=== PATIENT | female | born 1935 | race Caucasian/White ===

== ENCOUNTER 2022-06-12 12:14 | Inpatient (IN) ==
[2022-06-12 14:24] LABS: Basophils # (Auto) 0.01 K/mcL (0.00-0.30); Basophils % (Auto) 0.1 % (0.0-2.0); Eosinophils # (Auto) 0 K/mcL (0.00-0.70); Eosinophils % (Auto) 0 % (0.0-7.0); Hematocrit 28.5 % (34.1-44.9); Hemoglobin 9.4 g/dL (11.2-15.7); Lymphocytes # (Auto) 0.66 K/mcL (1.50-4.80); Lymphocytes % (Auto) 9.1 % (15.5-49.0); Mean Cell Volume 97.9 fL (80.0-100.0); Mean Platelet Volume 10.6 fL (8.8-12.5); Monocytes # (Auto) 0.13 K/mcL (0.10-0.90); Monocytes % (Auto) 1.8 % (1.0-12.0); Neutrophils % (Auto) 87.2 % (38.0-78.0); Platelet Count 193 K/mcL (140-440); RBC 2.91 M/mcL (3.59-5.38); Red Cell Distribution Width 17.2 % (11.5-14.5); WBC 7.2 K/mcL (4.5-11.0)
--- NOTE | 2022-06-12 14:24 | XRay Report ---
CLINICAL INFORMATION: Dyspnea COMPARISON: None. TECHNIQUE: Portable FINDINGS: The heart is mildly enlarged. Mediastinum is unremarkable. Pulmonary vessels are mildly distended and there is minimal interstitial edema. Minor bibasilar atelectasis noted. Small left pleural effusion present. IMPRESSION: Mild CHF or volume overload Interpreted and Authenticated by: Sumeet Norman 06/12/22
--- NOTE | 2022-06-12 14:26 | Emergency Department Note ---
Weakness HPI General Chief complaint: Weakness Stated complaint: weakness x 1 month, worse today Time Seen by Provider: 06/12/22 12:17 Source: EMS Mode of arrival: wheelchair Limitations: no limitations and altered mental status History of Present Illness HPI Narrative: Narrative: 87-year-old female with a history of increasing lower extremity swelling, breast cancer, diabetes, diabetic neuropathy, hypertension, history of falls and worsening generalized weakness presents the ER to be evaluated for lower extre mity swelling and exertional dyspnea. This has been increasing over the last several weeks. She fell about 2 weeks ago and still has bruising to the left side of her face. She is in remission for breast cancer but still does not have hair. She has bruising left side of her face from a fall about 2 weeks ago. She states she is felt very weak and is very very short of breath as of recent. She has been referred to the lymphedema clinic but does not hold the diagnosis of heart failure. She states she has not had fever, chills, body aches, nausea or vomiting and denies chest pain or chest pressure but she has had orthopnea. Her primary care provider is Dana Boykin. She has been having increasing Lasix without significant improvement. She currently takes 20 mg once a day but I believe she was up to twice a day according to her son. Related Data Home Medications Medication Instructions Recorded Confirmed anastrozole 1 mg tablet 1 mg PO QDAY 05/25/21 06/07/22 calcium carbonate 500 mg calcium 500 mg PO QDAY 05/25/21 06/07/22 (1,250 mg) tablet (Calcium 500) cholecalciferol (vitamin D3) 25 25 mcg PO QDAY 05/29/21 06/07/22 mcg (1,000 unit) capsule Previous Rx's Medication Instructions Recorded oxybutynin chloride 10 mg 10 mg PO QDAY #90 tabs 01/15/22 tablet,extended release 24 hr atenolol 50 mg-chlorthalidone 25 1 tab PO QDAY #90 tabs 01/16/22 mg tablet potassium chloride 10 mEq 10 meq PO QDAY #90 tabs 02/16/22 tablet,extended release apixaban 5 mg tablet (Eliquis) 5 mg PO BID #180 tabs 02/28/22 furosemide 20 mg tablet 20 mg PO QDAY #90 tabs 02/28/22 gabapentin 100 mg capsule 100 mg PO .COMPLEX #540 caps 04/09/22 pioglitazone 45 mg tablet 45 mg PO QDAY #90 tabs 04/09/22 omeprazole 20 mg tablet,delayed 20 mg PO BID #180 tabs 04/16/22 release amiodarone 200 mg tablet 200 mg PO BID #180 tabs 05/07/22 losartan 50 mg tablet 50 mg PO QDAY #90 tabs 05/07/22 metoprolol tartrate 25 mg tablet 25 mg PO BID #180 tabs 05/07/22 sertraline 25 mg tablet 50 mg PO QDAY #180 tabs 05/29/22 Allergies Allergy/AdvReac Type Severity Reaction Status Date / Time No Known Drug Allergies Allergy Verified 06/07/22 15:12 Review of Systems ROS ROS Narrative: Narrative: All systems ED: reviewed and negative except as stated. [facility] Narrative Patient History Narrative: Narrative: Medical/Surgical/Family History All Active Problems (Updated 06/12/22 @ 16:09 by Sly Cardoso MD) Hypokalemia (Acute) History of right breast cancer (Acute) Hyperglycemia due to type 2 diabetes mellitus (Acute) Atrial fibrillation (Acute) CHF exacerbation (Acute) Lymphedema (Acute) Leg edema (Acute) Depression (Acute) Wound of skin (Acute) Balance problem (Acute) Carpal tunnel syndrome on both sides (Acute) Memory changes (Acute) Fracture of tooth (Acute) Fracture of neck of humerus (Acute) Medicare annual wellness visit, subsequent (Acute) H/O malignant neoplasm of breast (Acute) Diabetic neuropathy (Acute) Diabetes (Acute) Hypertension (Acute) Medical History Balance problem Carpal tunnel syndrome on both sides Depression Diabetes Diabetic neuropathy H/O malignant neoplasm of breast 2018 Hypertension Lymphedema Memory changes Wound of skin Surgical History History of back surgery x 2 History of cardioversion (10/10/21) Family History Daughter Breast cancer Other Diabetes Social History Smoking Status: Never smoker Alcohol Intake Frequency: does not drink Substance Use: does not use Exam Narrative Narrative: Narrative: Gen: No acute distress Eyes: PERRL, no conjunctival injection , and symmetrical lids. Sclerae non icteric HENMT: Normocephalic Atraumatic head, external nose and ears. Moist MM. 2 L/min via nasal cannula CVS: +S1/S2, No murmurs or gallops. Radial pulses 2+ and equal bilat. No swelling RESP: Unlabored respiratory effort . Rales heard bilaterally at the bases GI: Nontender/Nondistended (NTND), No focal tenderness MSK: Patient has leg wraps in place for 2+ pitting edema all the way up to the knees. Skin: Warm, Dry . No rashes or lesions . Cap refill less than 2. Neuro: No focal neurological deficit Psych: Awake, Alert, & Oriented (AAO) x3. Appropriate mood and affect . General Limitations: no limitations and altered mental status Course Vital Signs Vital signs: Vital Signs Temperature 98.1 F 06/12/22 12:26 Pulse Rate 60 06/12/22 12:26 Respiratory Rate 14 06/12/22 12:26 Blood Pressure 135/38 06/12/22 12:26 Pulse Oximetry (%) 88 L 06/12/22 12:26 Oxygen Delivery Method 06/12/22 12:26 Temperature 98.1 F 06/12/22 12:26 Pulse Rate 56 L 06/12/22 16:09 Respiratory Rate 11 L 06/12/22 16:09 Blood Pressure 150/51 06/12/22 16:00 Pulse Oximetry (%) 100 06/12/22 16:09 Oxygen Delivery Method 06/12/22 16:09 Oxygen Flow Rate (L/min) 2 06/12/22 16:09 [facility] Narrative Medical decision making narrative: Narrative: Patient has 2+ pitting edema, exertional dyspnea, orthopnea and had an oxygen saturation of 88% on room air when she was triage. She desats with any ambulation. She does fine on 2 L/min or sitting without movement. She will be evaluated with CBC, CMP, troponin, EKG, chest x-ray and BNP. CBC: Anemia with slight decrease since April, no need for blood transfusion otherwise unremarkable CMP: Hyperglycemia 340, hyponatremia at 126 but adjusted for glucose is likely normal. Slight hypokalemia. Patient given 40 p.o. and 20 peripherally Troponin: Normal BNP:1602 elevated EKG: Sinus bradycardia at a rate of 54 bpm with left bundle branch block, no evidence of acute ischemia at this time. Chest x-ray:IMPRESSION: Mild CHF or volume overload Patient had an echocardiogram performed by Dr. Espinosa in September which was rather unremarkable with a ejection fraction of 60%. Given the patient's hypoxia with exertion, lower extremity swelling, rales at the bases, increased BNP and chest x-ray findings I feel like she would benefit from inpatient evaluation and therapy. Hospitalist to be consulted. Dr Cardoso: Graciously agreed to come down evaluate the patient he also requested a COVID test. COVID: Lab Data Result diagrams: 06/12/22 13:48 06/12/22 13:48 Labs: Lab Results 06/12/22 06/12/22 06/12/22 Range/Units 13:47 13:48 13:48 WBC 7.2 (4.5-11.0) K/mcL RBC 2.91 L (3.59-5.38) M/mcL Hgb 9.4 L (11.2-15.7) g/dL Hct 28.5 L (34.1-44.9) % MCV 97.9 (80.0-100.0) fL MCH 32.3 (26.0-34.0) pg MCHC 33.0 (31.0-36.0) g/dL RDW 17.2 H (11.5-14.5) % Plt Count 193 (140-440) K/mcL MPV 10.6 (8.8-12.5) fL Immature Gran % (Auto) 1.8 H (0.0-0.5) % Neut % (Auto) 87.2 H (38.0-78.0) % Lymph % (Auto) 9.1 L (15.5-49.0) % [place] % (Auto) 1.8 (1.0-12.0) % Eos % (Auto) 0 (0.0-7.0) % Baso % (Auto) 0.1 (0.0-2.0) % Lymph # (Auto) 0.66 L (1.50-4.80) K/mcL [place] # (Auto) 0.13 (0.10-0.90) K/mcL Eos # (Auto) 0 (0.00-0.70) K/mcL Baso # (Auto) 0.01 (0.00-0.30) K/mcL Immature Gran # 0.13 H (0.00-0.05) K/mcl Absolute Neutrophils 6.31 (1.80-8.00) K/mcL Sodium 126 L (133-145) mmol/L Potassium 3.1 L (3.3-5.1) mmol/L Chloride 88 L (96-108) mmol/L Carbon Dioxide 33 H (22-30) mmol/L Anion Gap 5.0 L (8.0-16.0) BUN 16 (8-23) mg/dL Creatinine 0.8 (0.6-1.1) mg/dL GFR Calculation 67 Glucose 340 H (70-105) mg/dL Calcium 8.3 L (8.6-10.4) mg/dL Total Bilirubin 0.5 (0.1-1.0) mg/dL AST 14 (<32) U/L ALT 30 (<40) U/L Alkaline Phosphatase 85 (39-117) U/L NT-Pro-B Natriuret Pep 1602.0 H (<450.0) pg/mL Total Protein 5.5 L (5.9-8.4) gm/dL Albumin 3.2 (3.2-5.2) gm/dL Globulin 2.3 (2.2-3.7) gm/dL Albumin/Globulin Ratio 1.4 (1.0-2.3) Urine Color Urine Appearance (Clear) Urine pH (5.0-9.0) Ur Specific [place] (1.000-1.035) Urine Protein (Negative) mg/dL Urine Glucose (UA) (Negative) mg/dL Urine Ketones (Negative) mg/dL Urine Occult Blood (Negative) mg/dL Urine Nitrate (Negative) Urine Bilirubin (Negative) mg/dL Urine Urobilinogen mg/dL Ur Leukocyte Esterase (Negative) /uL Urine RBC (0-3) /hpf Urine WBC (0-4) /hpf Ur Squamous Epith Cells (0-4) /hpf Urine Bacteria (0) /hpf Urine Mucus (None) /hpf Ur Culture Indicated? POC Troponin I 0.02 (0.02-0.08) 06/12/22 Range/Units 15:15 WBC (4.5-11.0) K/mcL RBC (3.59-5.38) M/mcL Hgb (11.2-15.7) g/dL Hct (34.1-44.9) % MCV (80.0-100.0) fL MCH (26.0-34.0) pg MCHC (31.0-36.0) g/dL RDW (11.5-14.5) % Plt Count (140-440) K/mcL MPV (8.8-12.5) fL Immature Gran % (Auto) (0.0-0.5) % Neut % (Auto) (38.0-78.0) % Lymph % (Auto) (15.5-49.0) % [place] % (Auto) (1.0-12.0) % Eos % (Auto) (0.0-7.0) % Baso % (Auto) (0.0-2.0) % Lymph # (Auto) (1.50-4.80) K/mcL [place] # (Auto) (0.10-0.90) K/mcL Eos # (Auto) (0.00-0.70) K/mcL Baso # (Auto) (0.00-0.30) K/mcL Immature Gran # (0.00-0.05) K/mcl Absolute Neutrophils (1.80-8.00) K/mcL Sodium (133-145) mmol/L Potassium (3.3-5.1) mmol/L Chloride (96-108) mmol/L Carbon Dioxide (22-30) mmol/L Anion Gap (8.0-16.0) BUN (8-23) mg/dL Creatinine (0.6-1.1) mg/dL GFR Calculation Glucose (70-105) mg/dL Calcium (8.6-10.4) mg/dL Total Bilirubin (0.1-1.0) mg/dL AST (<32) U/L ALT (<40) U/L Alkaline Phosphatase (39-117) U/L NT-Pro-B Natriuret Pep (<450.0) pg/mL Total Protein (5.9-8.4) gm/dL Albumin (3.2-5.2) gm/dL Globulin (2.2-3.7) gm/dL Albumin/Globulin Ratio (1.0-2.3) Urine Color Yellow Urine Appearance Hazy A (Clear) Urine pH 6.0 (5.0-9.0) Ur Specific [place] 1.007 (1.000-1.035) Urine Protein Negative (Negative) mg/dL Urine Glucose (UA) >=500 A (Negative) mg/dL Urine Ketones Negative (Negative) mg/dL Urine Occult Blood 0.03 (Negative) mg/dL Urine Nitrate Negative (Negative) Urine Bilirubin Negative (Negative) mg/dL Urine Urobilinogen Negative mg/dL Ur Leukocyte Esterase 500 A (Negative) /uL Urine RBC 3 (0-3) /hpf Urine WBC 29 H (0-4) /hpf Ur Squamous Epith Cells 0 (0-4) /hpf Urine Bacteria None (0) /hpf Urine Mucus Few A (None) /hpf Ur Culture Indicated? yes POC Troponin I (0.02-0.08) ED POC Tests ED POC Tests: RAMYA - SARS Antigen Negative Discharge Plan Patient/Caregiver Discharge Instructions Pt seen by ALTERATION WORKER/PA only: Yes Clinical Impression: CHF exacerbation Patient Disposition: Xfer As Inpt ([facility]) Condition: Fair Discharge Date/Time: 06/12/22 16:34
[2022-06-12] MEDS ORDERED: FUROSEMIDE 40 MG/4 ML VIAL IV ONE (15:02)
[2022-06-12 15:16] LABS: ALT/SGPT 30 U/L (<40); AST/SGOT 14 U/L (<32); Albumin 3.2 gm/dL (3.2-5.2); Albumin/Globulin Ratio 1.4 (1.0-2.3); Alkaline Phosphatase 85 U/L (39-117); Bilirubin,Total 0.5 mg/dL (0.1-1.0); Blood Urea Nitrogen 16 mg/dL (8-23); Calcium 8.3 mg/dL (8.6-10.4); Carbon Dioxide 33 mmol/L (22-30); Chloride 88 mmol/L (96-108); Globulin 2.3 gm/dL (2.2-3.7); Glomerular Filtration Rate 67; Glucose 340 mg/dL (70-105)
[2022-06-12] MEDS ORDERED: POTASSIUM CHLORIDE 20 MEQ PACKET PO ONE (15:20)
[2022-06-12] MEDS ORDERED: POTASSIUM CHLORIDE 20 MEQ in DEXTROSE 5% IN WATER 250 ML IV ONE (15:20)
--- NOTE | 2022-06-12 16:11 | Internal Med History&Physical ---
HPI History of Present Illness Patient information: Note initiated : 06/12/22 at 4:01 pm Service Date, if different from initiated Date: [] Patient: Isi Forman a 87 y/o F admitted on for weakness x 1 month, worse today. Chief Complaint: [legs swelling] Chief complaint: legs swelling History of present illness: Ms. Forman is a 87 year old F history of right breast cancer status post surgery now on hormonal therapy, type 2 diabetes mellitus, atrial fibrillation's on Eliquis, presenting with 3-month history of progressively worsening exertional dyspnea, shortness of breath, bilateral leg swellings. Over the past 3 months, she is experiencing worsening exertional dyspnea, shortness of breath, and bilateral leg swellings. She cannot walk more than 2 steps with the help of walker's. She is coming of shortness of breath. She denies any cough, sputum productions, or wheezing. She denies any chest pain or palpitations. She denies any fever chills or diaphoresis. She is complaining of bilateral leg swellings, but denies any unintentional weight gain. She denies any orthopnea and she sleeps on 1 pillows. She had a echocardiogram done earlier the year and according to records it was within normal limits. Vital signs at ED presentation significant for oxygen saturating at 88% on room air, as well as bradycardia heart rate in the 50s. Labs significant for lack of leukocytosis with WBC 7.2. BNP 1600. Serum troponin with normal limits. COVID smooth screening pending. Serum sodium level 136, blood glucose 340, corrected serum sodium 132. Serum potassium 3.1. Chest x-ray showing pulmonary edema. No f ocal infiltrates noted. Constitutional Constitutional: Present weakness; Absent chills, excessive sweating, fatigue or fever(s) EENT Eyes: Absent blurry vision, change in vision, loss of vision or other visual disturbances Ears: Absent decreased hearing or tinnitus Nose, mouth and throat: Absent abnormal hearing, dry mouth, headache(s), nasal congestion or sore throat Cardiovascular Cardiovascular: Present dyspnea on exertion, edema and leg edema; Absent chest pain, chest pain at rest, irregular heart rhythm or palpatations Respiratory Respiratory: Present dyspnea and dyspnea on exertion; Absent cough or wheezing Gastrointestinal Gastrointestinal: Absent abdominal pain, constipation, diarrhea, nausea or vomiting Musculoskeletal Musculoskeletal: Absent back pain, deformity, limited range of motion, muscle cramps, muscle weakness or numbness Integumentary Integumentary: Absent lesions, rash or wounds Neurological Neurological: Absent focal weakness, headache(s) or numbness Psychiatric Psychiatric: Absent anxiety, depression or hallucinations PFSH PFSH All Active Problems (Updated 06/12/22 @ 16:09 by Sly Cardoso MD) Hypokalemia (Acute) History of right breast cancer (Acute) Hyperglycemia due to type 2 diabetes mellitus (Acute) Atrial fibrillation (Acute) CHF exacerbation (Acute) Lymphedema (Acute) Leg edema (Acute) Depression (Acute) Wound of skin (Acute) Balance problem (Acute) Carpal tunnel syndrome on both sides (Acute) Memory changes (Acute) Fracture of tooth (Acute) Fracture of neck of humerus (Acute) Medicare annual wellness visit, subsequent (Acute) H/O malignant neoplasm of breast (Acute) Diabetic neuropathy (Acute) Diabetes (Acute) Hypertension (Acute) Medical History Balance problem Carpal tunnel syndrome on both sides Depression Diabetes Diabetic neuropathy H/O malignant neoplasm of breast 2018 Hypertension Lymphedema Memory changes Wound of skin Surgical History History of back surgery x 2 History of cardioversion (10/10/21) Family History Daughter Breast cancer Other Diabetes Social History marital status: smoking status: Never smoker alcohol intake frequency: does not drink substance use type: does not use MEDS/ALLERGIES Home Medications and Allergies Home Medications Medication Instructions Recorded Confirmed Type anastrozole 1 mg tablet 1 mg PO QDAY 05/25/21 06/07/22 History calcium carbonate 500 mg calcium 500 mg PO QDAY 05/25/21 06/07/22 History (1,250 mg) tablet (Calcium 500) cholecalciferol (vitamin D3) 25 25 mcg PO QDAY 05/29/21 06/07/22 History mcg (1,000 unit) capsule oxybutynin chloride 10 mg 10 mg PO QDAY #90 tabs 01/15/22 06/07/22 Rx tablet,extended release 24 hr atenolol 50 mg-chlorthalidone 25 1 tab PO QDAY #90 tabs 01/16/22 06/07/22 Rx mg tablet potassium chloride 10 mEq 10 meq PO QDAY #90 tabs 02/16/22 06/07/22 Rx tablet,extended release apixaban 5 mg tablet (Eliquis) 5 mg PO BID #180 tabs 02/28/22 06/07/22 Rx furosemide 20 mg tablet 20 mg PO QDAY #90 tabs 02/28/22 06/07/22 Rx gabapentin 100 mg capsule 100 mg PO .COMPLEX #540 caps 04/09/22 06/07/22 Rx pioglitazone 45 mg tablet 45 mg PO QDAY #90 tabs 04/09/22 06/07/22 Rx omeprazole 20 mg tablet,delayed 20 mg PO BID #180 tabs 04/16/22 06/07/22 Rx release amiodarone 200 mg tablet 200 mg PO BID #180 tabs 05/07/22 06/07/22 Rx losartan 50 mg tablet 50 mg PO QDAY #90 tabs 05/07/22 06/07/22 Rx metoprolol tartrate 25 mg tablet 25 mg PO BID #180 tabs 05/07/22 06/07/22 Rx sertraline 25 mg tablet 50 mg PO QDAY #180 tabs 05/29/22 06/07/22 Rx Allergies Allergy/AdvReac Type Severity Reaction Status Date / Time No Known Drug Allergies Allergy Verified 06/07/22 15:12 EXAM Constitutional Vitals: Temp Pulse Resp BP Pulse Ox O2 Del Method O2 Flow Rate 36.7 C 56 L 14 164/41 100 2 06/12/22 12:26 06/12/22 15:24 06/12/22 12:26 06/12/22 15:24 06/12/22 15:24 06/12/22 13:07 06/12/22 13:07 General appearance: cooperative and no acute distress Head Head exam: Present atraumatic and normocephalic Eye Eye exam: Present EOMI and PERRL ENT ENT exam: Present mucous membranes moist, normal exam and normal external ear exam Additional comments: Nasal cannula in place Neck Neck exam: Present normal inspection; Absent lymphadenopathy, tenderness or thyromegaly Respiratory Respiratory exam: Present rhonchi; Absent accessory muscle use, respiratory distress or wheezes Cardiovascular Cardiovascular exam: Present bradycardia; Absent JVD GI/Abdominal GI/Abdominal exam: Present normal bowel sounds and soft; Absent organomegaly or tenderness Extremities Exam Extremities exam: Present full ROM, normal capillary refill, normal inspection and pedal edema; Absent tenderness Additional comments: 3+ pitting edema up to hips Neurological Exam Neurological exam: Present alert, CN II-XII intact and oriented X3; Absent motor sensory deficit Psychiatric Psychiatric exam: Present normal affect and normal mood; Absent anxious or depressed Skin Skin exam: Present dry and intact DATA Data Completed and Pending Labs: Labs from last 24 hours 06/12/22 06/12/22 06/12/22 15:15 13:48 13:48 WBC 7.2 RBC 2.91 L Hgb 9.4 L Hct 28.5 L MCV 97.9 MCH 32.3 MCHC 33.0 RDW 17.2 H Plt Count 193 MPV 10.6 Immature Gran % (Auto) 1.8 H Neut % (Auto) 87.2 H Lymph % (Auto) 9.1 L [place] % (Auto) 1.8 Eos % (Auto) 0 Baso % (Auto) 0.1 Lymph # (Auto) 0.66 L [place] # (Auto) 0.13 Eos # (Auto) 0 Baso # (Auto) 0.01 Immature Gran # 0.13 H Absolute Neutrophils 6.31 Sodium 126 L Potassium 3.1 L Chloride 88 L Carbon Dioxide 33 H Anion Gap 5.0 L BUN 16 Creatinine 0.8 GFR Calculation 67 Glucose 340 H Calcium 8.3 L Total Bilirubin 0.5 AST 14 ALT 30 Alkaline Phosphatase 85 NT-Pro-B Natriuret Pep 1602.0 H Total Protein 5.5 L Albumin 3.2 Globulin 2.3 Albumin/Globulin Ratio 1.4 Urine Color Pending Urine Appearance Pending Urine pH Pending Ur Specific [place] Pending Urine Protein Pending Urine Glucose (UA) Pending Urine Ketones Pending Urine Occult Blood Pending Urine Nitrate Pending Urine Bilirubin Pending Urine Urobilinogen Pending Ur Leukocyte Esterase Pending POC Troponin I 06/12/22 13:47 WBC RBC Hgb Hct MCV MCH MCHC RDW Plt Count MPV Immature Gran % (Auto) Neut % (Auto) Lymph % (Auto) [place] % (Auto) Eos % (Auto) Baso % (Auto) Lymph # (Auto) [place] # (Auto) Eos # (Auto) Baso # (Auto) Immature Gran # Absolute Neutrophils Sodium Potassium Chloride Carbon Dioxide Anion Gap BUN Creatinine GFR Calculation Glucose Calcium Total Bilirubin AST ALT Alkaline Phosphatase NT-Pro-B Natriuret Pep Total Protein Albumin Globulin Albumin/Globulin Ratio Urine Color Urine Appearance Urine pH Ur Specific [place] Urine Protein Urine Glucose (UA) Urine Ketones Urine Occult Blood Urine Nitrate Urine Bilirubin Urine Urobilinogen Ur Leukocyte Esterase POC Troponin I 0.02 A/P Assessment and plan (1) CHF exacerbation: Status: Acute (2) Atrial fibrillation: Status: Acute (3) Hyperglycemia due to type 2 diabetes mellitus: Status: Acute (4) History of right breast cancer: Status: Acute (5) Hypokalemia: Status: Acute Narrative A/P Narrative: Assessment and Plans: 1. CHF with exacerbation: Inpatient med surg telemetry Supplemental oxygen therapy Strict intake and output Daily weigh 2L/day fluid restriction 2D echocardiogram Lasix 40mg IV BID Losartan Metoprolol tartrate 2. Atrial fibrillation: Amiodarone Metoprolol tartrate Lopressor 5mg IV q5min X3 doses PRN HR>120bpm, hold if SBP<90 and/or DBP<50mmHg Eliquis 2D echocardiogram 3. Hyperglycemia with T2DM: HgA1c Hold oral hypoglycemics Lantus 10 unit HS High dose SSI AC HS Accu Chek AC HS Hypoglycemia protocol Diabetic diet 4. Hypokalemia: Potassium chloride 20mEq PO BID CMP daily to trend serum potassium level Also check serum Mg level and replace if needed 5. h/o right breast cancer: Continue hormone therapy GI ppx: not currently indicated DVT ppx: Eliquis Code status: DNR Prognosis: guarded Disposition: inpatient med surg telemetry; PT OT Time Spent With Patient Time: Total time spent is greater than 50% in coordination of care (as documented) at patient's floor/unit and/or counseling patient: Total time spent with greater than 50% in coordination of care (as documented) at patient's floor/unit and/or counseling patient:: 50 - 70 minutes
[2022-06-12 16:16] LABS: Appearance,Urine HAZY (Clear); Bilirubin,Urine Negative (Negative); Color,Urine YELLOW; Culture Indicated,Urine yes; Glucose,Urine (UA) >=500 mg/dL (Negative); Ketones,Urine Negative (Negative); Leukocyte Esterase,Urine 500 /uL (Negative); Mucus,Urine FEW /hpf; Nitrate,Urine Negative (Negative); Protein,Urine Negative (Negative); Specific Gravity,Urine 1.007 (1.000-1.035); Urine Blood 0.03 mg/dL (Negative); Urine RBC 3 /hpf (0-3); Urine Squamous Epithelial Cell 0 /hpf (0-4); Urine WBC 29 /hpf (0-4); Urobilinogen,Urine Negative
[2022-06-12] MEDS ORDERED: traZODone HCL 50 MG TABLET PO PRN (16:50)
[2022-06-12] MEDS ORDERED: METOPROLOL TARTRATE 5 MG/5 ML VIAL IV PRN (16:50)
[2022-06-12] MEDS ORDERED: DEXTROSE 31 GM ORAL.SUSP PO PRN (16:50)
[2022-06-12] MEDS ORDERED: GABAPENTIN 100 MG CAPSULE PO SCH (16:50)
[2022-06-12] MEDS ORDERED: DEXTROSE 50% 50 ML VIAL IV PRN (16:50)
[2022-06-12] MEDS ORDERED: IPRATROPIUM/ALBUTEROL 3 ML AMPUL.NEB NEB PRN (16:50)
[2022-06-12] MEDS ORDERED: ACETAMINOPHEN 325 MG TABLET PO PRN (16:50)
[2022-06-12] MEDS ORDERED: ONDANSETRON 4 MG/2 ML VIAL IV PRN (16:50)
[2022-06-12] MEDS: INSULIN LISPRO 1 UNIT/0.01 ML UNIT SQ SCH ×2 (17:53→20:27)
[2022-06-12 18:32] LABS: Hemoglobin A1C 9.5 % Hgb (4.0-6.0)
[2022-06-12] MEDS: FUROSEMIDE 40 MG/4 ML VIAL IV SCH (20:16)
[2022-06-12] MEDS: CALCIUM CARBONATE 500 MG TAB.CHEW CHEWED SCH (20:16)
[2022-06-12] MEDS: DOCUSATE SODIUM 100 MG CAPSULE PO SCH (20:16)
[2022-06-12] MEDS: OMEPRAZOLE 20 MG CAPSULE PO SCH (20:17)
[2022-06-12] MEDS: GABAPENTIN 400 MG CAPSULE PO SCH (20:17)
[2022-06-12] MEDS: METOPROLOL TARTRATE 25 MG TABLET PO SCH (20:17)
[2022-06-12] MEDS: SENNOSIDES 1 TABLET PO SCH (20:17)
[2022-06-12] MEDS: POTASSIUM CHLORIDE 10 MEQ TABLET PO SCH (20:17)
[2022-06-12] MEDS: AMIODARONE HCL 200 MG TABLET PO SCH (20:17)
[2022-06-12] MEDS: APIXABAN 5 MG TABLET PO SCH (20:18)
[2022-06-12] MEDS: 0.9 % SODIUM CHLORIDE 10 ML SYRINGE IV SCH (20:18)
[2022-06-12] MEDS: INSULIN GLARGINE, HUMAN 1 UNIT/0.01 ML SQ SCH (20:27)
[2022-06-13] MEDS: 0.9 % SODIUM CHLORIDE 10 ML SYRINGE IV SCH ×3 (05:00→20:29)
[2022-06-13 06:48] LABS: Basophils # (Auto) 0.01 K/mcL (0.00-0.30); Basophils % (Auto) 0.1 % (0.0-2.0); Eosinophils # (Auto) 0.02 K/mcL (0.00-0.70); Eosinophils % (Auto) 0.3 % (0.0-7.0); Hematocrit 26.6 % (34.1-44.9); Hemoglobin 8.7 g/dL (11.2-15.7); Lymphocytes # (Auto) 0.89 K/mcL (1.50-4.80); Lymphocytes % (Auto) 12.8 % (15.5-49.0); Mean Cell Volume 99.3 fL (80.0-100.0); Mean Corpuscular HGB Conc 32.7 g/dL (31.0-36.0); Mean Platelet Volume 10.8 fL (8.8-12.5); Monocytes # (Auto) 0.31 K/mcL (0.10-0.90); Monocytes % (Auto) 4.5 % (1.0-12.0); Platelet Count 191 K/mcL (140-440); RBC 2.68 M/mcL (3.59-5.38); Red Cell Distribution Width 17.3 % (11.5-14.5); WBC 6.9 K/mcL (4.5-11.0)
[2022-06-13 07:12] LABS: ALT/SGPT 26 U/L (<40); AST/SGOT 15 U/L (<32); Albumin 2.6 gm/dL (3.2-5.2); Albumin/Globulin Ratio 1.1 (1.0-2.3); Alkaline Phosphatase 70 U/L (39-117); Bilirubin,Total 0.4 mg/dL (0.1-1.0); Blood Urea Nitrogen 16 mg/dL (8-23); Calcium 8.1 mg/dL (8.6-10.4); Carbon Dioxide 32 mmol/L (22-30); Chloride 91 mmol/L (96-108); Globulin 2.3 gm/dL (2.2-3.7); Glomerular Filtration Rate 67; Glucose 73 mg/dL (70-105); Phosphorous 2.9 mg/dL (2.5-4.5)
[2022-06-13] MEDS: INSULIN LISPRO 1 UNIT/0.01 ML UNIT SQ SCH ×4 (07:41→20:28)
[2022-06-13] MEDS: OMEPRAZOLE 20 MG CAPSULE PO SCH ×2 (07:42→17:04)
[2022-06-13] MEDS ORDERED: NON FORMULARY MEDICATION 1 DOSE MISCELL (Acetaminophen 500 mg Capsule) PO PRN (08:46)
[2022-06-13] MEDS: OXYBUTYNIN CHLORIDE 5 MG TAB.XL.24H PO SCH (08:57)
[2022-06-13] MEDS: VITAMIN D3 25 MCG TABLET PO SCH (08:57)
[2022-06-13] MEDS: FUROSEMIDE 40 MG/4 ML VIAL IV SCH ×2 (08:57→15:55)
[2022-06-13] MEDS: POTASSIUM CHLORIDE 10 MEQ TABLET PO SCH ×2 (08:58→17:05)
[2022-06-13] MEDS: CALCIUM CARBONATE 500 MG TAB.CHEW CHEWED SCH ×2 (08:58→20:26)
[2022-06-13] MEDS: GABAPENTIN 100 MG CAPSULE PO SCH (08:59)
[2022-06-13] MEDS: SERTRALINE 50 MG TABLET PO SCH ×3 (09:00→20:27)
[2022-06-13] MEDS: AMIODARONE HCL 200 MG TABLET PO SCH ×2 (09:00→20:27)
[2022-06-13] MEDS: CALCIUM (OYSTER SHELL) 500 MG TABLET PO SCH (09:00)
[2022-06-13] MEDS: DOCUSATE SODIUM 100 MG CAPSULE PO SCH ×2 (09:00→20:27)
[2022-06-13] MEDS: APIXABAN 5 MG TABLET PO SCH ×2 (09:00→20:27)
[2022-06-13] MEDS: LOSARTAN 50 MG TABLET PO SCH (09:01)
[2022-06-13] MEDS: METOPROLOL TARTRATE 25 MG TABLET PO SCH ×2 (09:01→20:27)
[2022-06-13] MEDS: predniSONE 20 MG TABLET PO SCH ×2 (09:11→17:04)
--- NOTE | 2022-06-13 13:40 | EKG ---
[facility] Test Date: 2022-06-12 Pat Name: Isi Forman Department: ED Room: Gender: Female Unit Aide Tech: AW : [id number] Requested By: Benito Mirza Order Number: [id number] Reading MD: Chastity Rudd Measurements Intervals [place] Rate: 54 P: -30 NE: 179 QRS: -18 QRSD: 122 T: 48 QT: 513 QTc: 487 Interpretive Statements Sinus rhythm Nonspecific IVCD Consider anterior infarct age indeterminate T wave abnormality anterior leads consider ischemia Electronically Signed On 06-13-2022 13:40:06 PDT by Chastity Rudd /store/M0/[id number]
[2022-06-13] MEDS ORDERED: LIDOCAINE VISCOUS 2% 15 ML UNIT DOSE CUP PO PRN (15:15)
[2022-06-13] MEDS ORDERED: DEXTROSE 50% 50 ML VIAL IV PRN (15:21)
[2022-06-13] MEDS ORDERED: DEXTROSE 31 GM ORAL.SUSP PO PRN (15:21)
--- NOTE | 2022-06-13 15:21 | Internal Med Progress Note ---
SUBJECTIVE Subjective Patient information: Note initiated : 06/13/22 at 3:16 pm Service Date, if different from initiated Date: [] Patient: Isi Forman a 87 y/o F admitted on 06/12/22 for weakness x 1 month, worse today. Chief Complaint: [] Interval history: Ms. Forman is a 87 year old F history of right breast cancer status post surgery now on hormonal therapy, type 2 diabetes mellitus, atrial fibrillation's on Eliquis, presenting with 3-month history of progressively worsening exertional dyspnea, shortness of breath, bilateral leg swellings. Over the past 3 months, she is experiencing worsening exertional dyspnea, shortness of breath, and bi lateral leg swellings. She cannot walk more than 2 steps with the help of walker's. She is coming of shortness of breath. She denies any cough, sputum productions, or wheezing. She denies any chest pain or palpitations. She denies any fever chills or diaphoresis. She is complaining of bilateral leg swellings, but denies any unintentional weight gain. She denies any orthopnea and she sleeps on 1 pillows. She had a echocardiogram done earlier the year and according to records it was within normal limits. Vital signs at ED presentation significant for oxygen saturating at 88% on room air, as well as bradycardia heart rate in the 50s. Labs significant for lack of leukocytosis with WBC 7.2. BNP 1600. Serum troponin with normal limits. COVID smooth screening pending. Serum sodium level 136, blood glucose 340, corrected serum sodium 132. Serum potassium 3.1. Chest x-ray showing pulmonary edema. No focal infiltrates noted. 06/13: Patient is currently on room air. Please refer to the records for exact intake and output documentations. Status post 2D echocardiogram showing conserved systolic ejection fractions of 65 to 70% with grade 2 diastolic dysfunction. Urine culture growing gram-negative bacillus, but patient denies any dysuria. The increased urinary frequency is most likely due to diuretic therapies. Patient's is complaining of painful ulcer on her tongue and on her cheeks. Patient denies any chest pain or palpitations. Improving degree of shortness of breath. Continue IV Lasix. Continue metoprolol tartrate and losartan as part of the management for heart failure. Continue basal bolus insulin regimens. Continue amiodarone, metoprolol, and Eliquis for atrial fibrillation's. Physical therapist recommended SNF placement. Constitutional Vitals: Vital Signs Temp Pulse Resp BP Pulse Ox O2 Del Method O2 Flow Rate 36.4 C 60 16 100/32 94 1 06/13/22 12:00 06/13/22 12:00 06/13/22 12:00 06/13/22 12:00 06/13/22 12:00 06/13/22 12:00 06/13/22 08:21 Period Temp Pulse Resp BP Sys/Rhodes Pulse Ox O2 Del Method O2 Flow Rate Last 24 Hr 36.3 C-36.8 C 51-60 10- 96-164/32-56 93-100 Nasal Cannula- Room Air 1-2 Intake and Output 06/13/22 06/13/22 06/13/22 05:59 13:59 21:59 Intake Total 0 Output Total 601 700 Balance -601 -700 Intake & Output: Intake & Output 06/13/22 06/13/22 06/13/22 05:59 13:59 21:59 Intake Total 0 Output Total 601 700 Balance -601 -700 Intake: Oral 0 Output: Urine Catheter Amount 600 Straight 600 Void Amount 700 # of times incontinent of urine 1 Other: Meal Lunch Percent of Meal Consumed 75% Feeding Ability Independent Urine Appearance Cloudy Straight Clear Urine Color Light Catina Straight Pale Urine Odor Strong Head Head exam: Present atraumatic and normal inspection Eye Eye exam: Present normal appearance ENT ENT exam: Present normal exam and normal external ear exam; Absent mucous membranes moist Additional comments: aphthous ulcers on tongue and maxillary mucous Neck Neck exam: Present normal inspection Respiratory Respiratory exam: Present rhonchi Cardiovascular Cardiovascular exam: Present irregular rhythm GI/Abdominal GI/Abdominal exam: Present normal bowel sounds Extremities Exam Extremities exam: Present pedal edema Back Exam Back exam: Present normal inspection Neurological Exam Neurological exam: Present alert and oriented X3 Skin Skin exam: Present intact and warm OBJ DATA Labs CBC & Chem 7: 06/13/22 05:14 06/13/22 05:13 Labs: Abnormal Lab Results 06/13/22 06/13/22 06/12/22 05:14 05:13 15:15 RBC 2.68 L Hgb 8.7 L Hct 26.6 L RDW 17.3 H Immature Gran % (Auto) 1.3 H Neut % (Auto) 81.0 H Lymph % (Auto) 12.8 L Lymph # (Auto) 0.89 L Immature Gran # 0.09 H Sodium 129 L Potassium Chloride 91 L Carbon Dioxide 32 H Anion Gap 6.0 L Glucose Hemoglobin A1c Calcium 8.1 L NT-Pro-B Natriuret Pep Total Protein 4.9 L Albumin 2.6 L Urine Appearance Hazy A Urine Glucose (UA) >=500 A Ur Leukocyte Esterase 500 A Urine WBC 29 H Urine Mucus Few A 06/12/22 06/12/22 06/12/22 13:48 13:48 13:48 RBC 2.91 L Hgb 9.4 L Hct 28.5 L RDW 17.2 H Immature Gran % (Auto) 1.8 H Neut % (Auto) 87.2 H Lymph % (Auto) 9.1 L Lymph # (Auto) 0.66 L Immature Gran # 0.13 H Sodium 126 L Potassium 3.1 L Chloride 88 L Carbon Dioxide 33 H Anion Gap 5.0 L Glucose 340 H Hemoglobin A1c 9.5 H Calcium 8.3 L NT-Pro-B Natriuret Pep 1602.0 H Total Protein 5.5 L Albumin Urine Appearance Urine Glucose (UA) Ur Leukocyte Esterase Urine WBC Urine Mucus Meds: Medications Acetaminophen (Acetaminophen 325 Mg Tablet) 650 mg PO Q6HP PRN; Protocol PRN Reason: Per Pain Protocol/Fever > 101 Albuterol/Ipratropium (Ipratropium/Albuterol 3 Ml Ampul.Neb) 3 ml NEB Q4HRT PRN PRN Reason: Wheezing Amiodarone HCl (Amiodarone Hcl 200 Mg Tablet) 200 mg PO BID [facility] Last Admin: 06/13/22 09:00 Dose: 200 mg Apixaban (Apixaban 5 Mg Tablet) 5 mg PO BID [facility] Last Admin: 06/13/22 09:00 Dose: 5 mg Calcium Carbonate/Glycine (Calcium (Oyster Shell) 500 Mg Tablet) 500 mg PO QDAY [facility] Last Admin: 06/13/22 09:00 Dose: 500 mg Calcium Carbonate/Glycine (Calcium Carbonate 500 Mg Tab.Chew) 500 mg CHEWED BID [facility] Last Admin: 06/13/22 08:58 Dose: 500 mg Dextrose (Dextrose 50% 50 Ml Vial) 0 ml IV UD PRN PRN Reason: Per Sliding Scale Diagnostic Test (Pha) (Accu-Chek 1 Each Strip) 1 each FS ACHS [facility] Last Admin: 06/13/22 10:58 Dose: 1 each Docusate Sodium (Docusate Sodium 100 Mg Capsule) 100 mg PO BID [facility] Last Admin: 06/13/22 09:00 Dose: 100 mg Furosemide (Furosemide 40 Mg/4 Ml Vial) 40 mg IV BIDD [facility] Last Admin: 06/13/22 08:57 Dose: 40 mg Gabapentin (Gabapentin 100 Mg Capsule) 200 mg PO DAILY [facility] Last Admin: 06/13/22 08:59 Dose: 200 mg Gabapentin (Gabapentin 400 Mg Capsule) 400 mg PO [facility] Last Admin: 06/12/22 20:17 Dose: 400 mg Glucose (Dextrose 31 Gm Oral.Susp) 15 gm PO PRN PRN PRN Reason: Hypoglycemia Insulin Glargine (Insulin Glargine, Human 1 Unit/0.01 Ml) 10 unit SQ [facility] Last Admin: 06/12/22 20:27 Dose: 10 unit Insulin Human Lispro (Insulin Lispro 1 Unit/0.01 Ml Unit) 0 unit SQ [facility]; Protocol Last Admin: 06/13/22 11:02 Dose: Not Given Losartan Potassium (Losartan 50 Mg Tablet) 50 mg PO QDAY [facility] Last Admin: 06/13/22 09:01 Dose: Not Given Metoprolol Tartrate (Metoprolol Tartrate 25 Mg Tablet) 25 mg PO BID [facility] Last Admin: 06/13/22 09:01 Dose: Not Given Metoprolol Tartrate (Metoprolol Tartrate 5 Mg/5 Ml Vial) 5 mg IV Q5M PRN PRN Reason: Tachyarrhythmias Omeprazole (Omeprazole 20 Mg Capsule) 20 mg PO BIDAC [facility] Last Admin: 06/13/22 07:42 Dose: 20 mg Ondansetron HCl (Ondansetron 4 Mg/2 Ml Vial) 4 mg IV Q6HP PRN PRN Reason: Nausea And Vomiting Oxybutynin Chloride (Oxybutynin Chloride 5 Mg Tab.Xl.24h) 10 mg PO QDAY [facility] Last Admin: 06/13/22 08:57 Dose: 10 mg Anastrozole 1 Mg (Tablet) 1 dose PO QDAY [facility] Last Admin: 06/13/22 09:01 Dose: Not Given Potassium Chloride (Potassium Chloride 10 Meq Tablet) 20 meq PO BIDCC [facility] Last Admin: 06/13/22 08:58 Dose: 20 meq Prednisone (Prednisone 20 Mg Tablet) 20 mg PO BIDCC [facility] Last Admin: 06/13/22 09:11 Dose: 20 mg Senna (Sennosides 1 Tablet) 2 tab PO [facility] Last Admin: 06/12/22 20:17 Dose: 2 tab Sertraline HCl (Sertraline 50 Mg Tablet) 50 mg PO DAILY [facility] Last Admin: 06/13/22 09:00 Dose: 50 mg Sertraline HCl (Sertraline 50 Mg Tablet) 25 mg PO BID [facility] Last Admin: 06/13/22 09:05 Dose: Not Given Sodium Chloride (0.9 % Sodium Chloride 10 Ml Syringe) 10 ml IV Q8 [facility] Last Admin: 06/13/22 05:00 Dose: 10 ml Trazodone HCl (Trazodone Hcl 50 Mg Tablet) 25 mg PO HSP PRN PRN Reason: Insomnia Vitamin D (Vitamin D3 25 Mcg Tablet) 25 mcg PO DAILY [facility] Last Admin: 06/13/22 08:57 Dose: 25 mcg A/P Assessment and plan (1) CHF exacerbation: Status: Acute (2) Atrial fibrillation: Status: Acute (3) Hyperglycemia due to type 2 diabetes mellitus: Status: Acute (4) History of right breast cancer: Status: Acute (5) Hypokalemia: Status: Acute (6) Oral aphthous ulcer: Status: Acute Narrative A/P Narrative: Assessment and Plans: 1. CHF with exacerbation: Inpatient med surg telemetry Supplemental oxygen therapy as needed to keep spo2>=92% Strict intake and output Daily weigh 2L/day fluid restriction 2D echocardiogram showing conserved systolic ejection fractions of 65 to 70% with grade 2 diastolic dysfunction Lasix 40mg IV BID Losartan Metoprolol tartrate 2. Atrial fibrillation: Amiodarone Metoprolol tartrate Lopressor 5mg IV q5min X3 doses PRN HR>120bpm, hold if SBP<90 and/or DBP<50mmHg Eliquis 2D echocardiogram showing conserved systolic ejection fractions of 65 to 70% with grade 2 diastolic dysfunction 3. Hyperglycemia with T2DM: HgA1c 9.5 Hold oral hypoglycemics Lantus 10 unit HS Low dose SSI AC HS Accu Chek AC HS Hypoglycemia protocol Diabetic diet 4. Hypokalemia: Potassium chloride 20mEq PO BID CMP daily to trend serum potassium level Also check serum Mg level and replace if needed 5. h/o right breast cancer: Continue hormone therapy 6. Aphthous ulcers: Viscous lidocaine 2% swish and spit TID PRN pain GI ppx: not currently indicated DVT ppx: Eliquis Code status: Full Prognosis: guarded Disposition: inpatient med surg telemetry; SNF Time Spent With Patient Time: Total time spent is greater than 50% in coordination of care (as documented) at patient's floor/unit and/or counseling patient: Total time spent with greater than 50% in coordination of care (as documented) at patient's floor/unit and/or counseling patient:: 25 - 35 minutes QUALITY Stroke Symptom Onset Unknown: No VTE Deep Vein Thrombosis/Pulmonary Embolism Present on Admission: No
[2022-06-13] MEDS: SENNOSIDES 1 TABLET PO SCH (20:27)
[2022-06-13] MEDS: GABAPENTIN 400 MG CAPSULE PO SCH (20:27)
[2022-06-13] MEDS: INSULIN GLARGINE, HUMAN 1 UNIT/0.01 ML SQ SCH (20:27)
[2022-06-14] MEDS: 0.9 % SODIUM CHLORIDE 10 ML SYRINGE IV SCH ×3 (04:12→21:27)
[2022-06-14] MEDS: POTASSIUM CHLORIDE 10 MEQ TABLET PO SCH ×2 (07:07→16:46)
[2022-06-14] MEDS: OMEPRAZOLE 20 MG CAPSULE PO SCH ×2 (07:08→16:46)
[2022-06-14] MEDS: predniSONE 20 MG TABLET PO SCH ×2 (07:08→16:46)
[2022-06-14] MEDS: FUROSEMIDE 40 MG/4 ML VIAL IV SCH (07:08)
[2022-06-14] MEDS: INSULIN LISPRO 1 UNIT/0.01 ML UNIT SQ SCH ×4 (07:23→21:25)
[2022-06-14 07:38] LABS: Basophils # (Auto) 0 K/mcL (0.00-0.30); Basophils % (Auto) 0 % (0.0-2.0); Eosinophils # (Auto) 0 K/mcL (0.00-0.70); Eosinophils % (Auto) 0 % (0.0-7.0); Hematocrit 24.9 % (34.1-44.9); Hemoglobin 8.3 g/dL (11.2-15.7); Lymphocytes # (Auto) 0.72 K/mcL (1.50-4.80); Lymphocytes % (Auto) 11.5 % (15.5-49.0); Mean Cell Volume 99.2 fL (80.0-100.0); Mean Corpuscular HGB Conc 33.3 g/dL (31.0-36.0); Mean Platelet Volume 10.9 fL (8.8-12.5); Monocytes # (Auto) 0.35 K/mcL (0.10-0.90); Monocytes % (Auto) 5.6 % (1.0-12.0); Neutrophils % (Auto) 81.3 % (38.0-78.0); Platelet Count 188 K/mcL (140-440); RBC 2.51 M/mcL (3.59-5.38); Red Cell Distribution Width 17.7 % (11.5-14.5); WBC 6.3 K/mcL (4.5-11.0)
[2022-06-14] MEDS: CALCIUM (OYSTER SHELL) 500 MG TABLET PO SCH (08:18)
[2022-06-14] MEDS: APIXABAN 5 MG TABLET PO SCH ×2 (08:18→21:26)
[2022-06-14] MEDS: CALCIUM CARBONATE 500 MG TAB.CHEW CHEWED SCH ×2 (08:18→21:27)
[2022-06-14] MEDS: AMIODARONE HCL 200 MG TABLET PO SCH ×2 (08:18→21:27)
[2022-06-14] MEDS: GABAPENTIN 100 MG CAPSULE PO SCH (08:18)
[2022-06-14] MEDS: OXYBUTYNIN CHLORIDE 5 MG TAB.XL.24H PO SCH (08:18)
[2022-06-14] MEDS: METOPROLOL TARTRATE 25 MG TABLET PO SCH ×2 (08:19→21:26)
[2022-06-14] MEDS: LOSARTAN 50 MG TABLET PO SCH (08:19)
[2022-06-14] MEDS: SERTRALINE 50 MG TABLET PO SCH ×3 (08:19→21:26)
[2022-06-14] MEDS: DOCUSATE SODIUM 100 MG CAPSULE PO SCH ×2 (08:19→21:23)
[2022-06-14] MEDS: VITAMIN D3 25 MCG TABLET PO SCH (08:19)
[2022-06-14 08:42] LABS: ALT/SGPT 26 U/L (<40); AST/SGOT 15 U/L (<32); Albumin 2.5 gm/dL (3.2-5.2); Albumin/Globulin Ratio 1.1 (1.0-2.3); Alkaline Phosphatase 67 U/L (39-117); Bilirubin,Total 0.4 mg/dL (0.1-1.0); Blood Urea Nitrogen 20 mg/dL (8-23); Calcium 8.3 mg/dL (8.6-10.4); Carbon Dioxide 31 mmol/L (22-30); Chloride 90 mmol/L (96-108); Globulin 2.3 gm/dL (2.2-3.7); Glomerular Filtration Rate 79; Glucose 184 mg/dL (70-105); Phosphorous 2.9 mg/dL (2.5-4.5)
--- NOTE | 2022-06-14 12:21 | Internal Med Progress Note ---
SUBJECTIVE Subjective Patient information: Note initiated : 06/14/22 at 12:18 pm Service Date, if different from initiated Date: [] Patient: Isi Forman a 87 y/o F admitted on 06/12/22 for weakness x 1 month, worse today. Chief Complaint: [] Interval history: Ms. Forman is a 87 year old F history of right breast cancer status post surgery now on hormonal therapy, type 2 diabetes mellitus, atrial fibrillation's on Eliquis, presenting with 3-month history of progressively worsening exertional dyspnea, shortness of breath, bilateral leg swellings. Over the past 3 months, she is experiencing worsening exertional dyspnea, shortness of breath, and b ilateral leg swellings. She cannot walk more than 2 steps with the help of walker's. She is coming of shortness of breath. She denies any cough, sputum productions, or wheezing. She denies any chest pain or palpitations. She denies any fever chills or diaphoresis. She is complaining of bilateral leg swellings, but denies any unintentional weight gain. She denies any orthopnea and she sleeps on 1 pillows. She had a echocardiogram done earlier the year and according to records it was within normal limits. Vital signs at ED presentation significant for oxygen saturating at 88% on room air, as well as bradycardia heart rate in the 50s. Labs significant for lack of leukocytosis with WBC 7.2. BNP 1600. Serum troponin with normal limits. COVID smooth screening pending. Serum sodium level 136, blood glucose 340, corrected serum sodium 132. Serum potassium 3.1. Chest x-ray showing pulmonary edema. No focal infiltrates noted. 06/13: Patient is currently on room air. Please refer to the records for exact intake and output documentations. Status post 2D echocardiogram showing conserved systolic ejection fractions of 65 to 70% with grade 2 diastolic dysfunction. Urine culture growing gram-negative bacillus, but patient denies any dysuria. The increased urinary frequency is most likely due to diuretic therapies. Patient's is complaining of painful ulcer on her tongue and on her cheeks. Patient denies any chest pain or palpitations. Improving degree of shortness of breath. Continue IV Lasix. Continue metoprolol tartrate and losartan as part of the management for heart failure. Continue basal bolus insulin regimens. Continue amiodarone, metoprolol, and Eliquis for atrial fibrillation's. Physical therapist recommended SNF placement. 06/14: Patient is currently on room air. Patient denies any shortness of breath. She denies any chest pain or pressure or tightness. She denies any fever, chills, or diaphoresis. She denies any cough or wheezing. Improving degree of the energy level. We will switch Lasix from IV to p.o. Continue metoprolol tartrate and losartan as part of the management for heart failure. Continue basal bolus insulin regimens. Continue amiodarone, metoprolol, and Eliquis for atrial fibrillation's. Pending SNF placement. Constitutional Vitals: Vital Signs Temp Pulse Resp BP Pulse Ox O2 Del Method O2 Flow Rate 37.1 C 98 H 14 125/47 90 1 06/14/22 12:00 06/14/22 12:00 06/14/22 12:00 06/14/22 12:00 06/14/22 12:00 06/14/22 12:00 06/13/22 08:21 Period Temp Pulse Resp BP Sys/Rhodes Pulse Ox O2 Del Method O2 Flow Rate Last 24 Hr 36.5 C-37.1 C 57-98 14-20 113-146/42-57 90-96 Room Air-Room Air Intake and Output 06/13/22 06/14/22 06/14/22 21:59 05:59 13:59 Intake Total 990 500 240 Output Total 1250 Balance -260 500 240 Weight 82.645 kg Intake & Output: Intake & Output 06/13/22 06/14/22 06/14/22 21:59 05:59 13:59 Intake Total 990 500 240 Output Total 1250 Balance -260 500 240 Weight 82.645 kg Intake: Oral 990 500 240 Output: Void Amount 1250 Other: Meal Dinner Breakfast Percent of Meal Consumed 50% 75% Feeding Ability Assist with Tray Set Up Assist with Tray Set Up Urine Color Bright Yellow Urine Odor Strong Stool Size Large Stool Color Brown Stool Consistency Soft Liquid # Bowel Movements 1 Head Head exam: Present atraumatic and normal inspection Eye Eye exam: Present normal appearance ENT ENT exam: Present mucous membranes moist and normal external ear exam; Absent normal exam Additional comments: Aphthous ulcers Neck Neck exam: Present normal inspection Respiratory Respiratory exam: Present rhonchi Cardiovascular Cardiovascular exam: Present irregular rhythm GI/Abdominal GI/Abdominal exam: Present normal bowel sounds Extremities Exam Extremities exam: Present pedal edema Back Exam Back exam: Present normal inspection Neurological Exam Neurological exam: Present alert and oriented X3 Skin Skin exam: Present intact and warm OBJ DATA Labs CBC & Chem 7: 06/14/22 06:01 06/14/22 06:01 Labs: Abnormal Lab Results 06/14/22 06/14/22 06/13/22 06:01 06:01 05:14 RBC 2.51 L 2.68 L Hgb 8.3 L 8.7 L Hct 24.9 L 26.6 L RDW 17.7 H 17.3 H Immature Gran % (Auto) 1.6 H 1.3 H Neut % (Auto) 81.3 H 81.0 H Lymph % (Auto) 11.5 L 12.8 L Lymph # (Auto) 0.72 L 0.89 L Immature Gran # 0.10 H 0.09 H Sodium 131 L Potassium Chloride 90 L Carbon Dioxide 31 H Anion Gap Glucose 184 H Hemoglobin A1c Calcium 8.3 L NT-Pro-B Natriuret Pep Total Protein 4.8 L Albumin 2.5 L Urine Appearance Urine Glucose (UA) Ur Leukocyte Esterase Urine WBC Urine Mucus 06/13/22 06/12/22 06/12/22 05:13 15:15 13:48 RBC Hgb Hct RDW Immature Gran % (Auto) Neut % (Auto) Lymph % (Auto) Lymph # (Auto) Immature Gran # Sodium 129 L Potassium Chloride 91 L Carbon Dioxide 32 H Anion Gap 6.0 L Glucose Hemoglobin A1c 9.5 H Calcium 8.1 L NT-Pro-B Natriuret Pep Total Protein 4.9 L Albumin 2.6 L Urine Appearance Hazy A Urine Glucose (UA) >=500 A Ur Leukocyte Esterase 500 A Urine WBC 29 H Urine Mucus Few A 06/12/22 06/12/22 13:48 13:48 RBC 2.91 L Hgb 9.4 L Hct 28.5 L RDW 17.2 H Immature Gran % (Auto) 1.8 H Neut % (Auto) 87.2 H Lymph % (Auto) 9.1 L Lymph # (Auto) 0.66 L Immature Gran # 0.13 H Sodium 126 L Potassium 3.1 L Chloride 88 L Carbon Dioxide 33 H Anion Gap 5.0 L Glucose 340 H Hemoglobin A1c Calcium 8.3 L NT-Pro-B Natriuret Pep 1602.0 H Total Protein 5.5 L Albumin Urine Appearance Urine Glucose (UA) Ur Leukocyte Esterase Urine WBC Urine Mucus Meds: Medications Acetaminophen (Acetaminophen 325 Mg Tablet) 650 mg PO Q6HP PRN; Protocol PRN Reason: Per Pain Protocol/Fever > 101 Albuterol/Ipratropium (Ipratropium/Albuterol 3 Ml Ampul.Neb) 3 ml NEB Q4HRT PRN PRN Reason: Wheezing Amiodarone HCl (Amiodarone Hcl 200 Mg Tablet) 200 mg PO BID [facility] Last Admin: 06/14/22 08:18 Dose: 200 mg Apixaban (Apixaban 5 Mg Tablet) 5 mg PO BID [facility] Last Admin: 06/14/22 08:18 Dose: 5 mg Calcium Carbonate/Glycine (Calcium (Oyster Shell) 500 Mg Tablet) 500 mg PO QDAY [facility] Last Admin: 06/14/22 08:18 Dose: 500 mg Calcium Carbonate/Glycine (Calcium Carbonate 500 Mg Tab.Chew) 500 mg CHEWED BID [facility] Last Admin: 06/14/22 08:18 Dose: 500 mg Dextrose (Dextrose 50% 50 Ml Vial) 0 ml IV UD PRN PRN Reason: Per Sliding Scale Dextrose (Dextrose 50% 50 Ml Vial) 0 ml IV UD PRN PRN Reason: Per Sliding Scale Diagnostic Test (Pha) (Accu-Chek 1 Each Strip) 1 each FS ACHS [facility] Last Admin: 06/14/22 11:40 Dose: 1 each Diagnostic Test (Pha) (Accu-Chek 1 Each Strip) 1 each FS ACHS [facility] Last Admin: 06/14/22 11:41 Dose: Not Given Docusate Sodium (Docusate Sodium 100 Mg Capsule) 100 mg PO BID [facility] Last Admin: 06/14/22 08:19 Dose: 100 mg Furosemide (Furosemide 40 Mg Tablet) 40 mg PO BIDD [facility] Gabapentin (Gabapentin 100 Mg Capsule) 200 mg PO DAILY [facility] Last Admin: 06/14/22 08:18 Dose: 200 mg Gabapentin (Gabapentin 400 Mg Capsule) 400 mg PO HS [facility] Last Admin: 06/13/22 20:27 Dose: 400 mg Glucose (Dextrose 31 Gm Oral.Susp) 15 gm PO PRN PRN PRN Reason: Hypoglycemia Glucose (Dextrose 31 Gm Oral.Susp) 15 gm PO PRN PRN PRN Reason: Hypoglycemia Insulin Glargine (Insulin Glargine, Human 1 Unit/0.01 Ml) 10 unit SQ [facility] Last Admin: 06/13/22 20:27 Dose: 10 unit Insulin Human Lispro (Insulin Lispro 1 Unit/0.01 Ml Unit) 0 unit SQ [facility]; Protocol Last Admin: 06/14/22 11:41 Dose: 3 units Lidocaine HCl (Lidocaine Viscous 2% 15 Ml Unit Dose Cup) 15 ml PO TIDP PRN PRN Reason: aphthous ulcer Last Admin: 06/14/22 08:17 Dose: 15 ml Losartan Potassium (Losartan 50 Mg Tablet) 50 mg PO QDAY [facility] Last Admin: 06/14/22 08:19 Dose: 50 mg Metoprolol Tartrate (Metoprolol Tartrate 25 Mg Tablet) 25 mg PO BID [facility] Last Admin: 06/14/22 08:19 Dose: 25 mg Metoprolol Tartrate (Metoprolol Tartrate 5 Mg/5 Ml Vial) 5 mg IV Q5M PRN PRN Reason: Tachyarrhythmias Omeprazole (Omeprazole 20 Mg Capsule) 20 mg PO BIDAC [facility] Last Admin: 06/14/22 07:08 Dose: 20 mg Ondansetron HCl (Ondansetron 4 Mg/2 Ml Vial) 4 mg IV Q6HP PRN PRN Reason: Nausea And Vomiting Oxybutynin Chloride (Oxybutynin Chloride 5 Mg Tab.Xl.24h) 10 mg PO QDAY [facility] Last Admin: 06/14/22 08:18 Dose: 10 mg Anastrozole 1 Mg (Tablet) 1 dose PO QDAY [facility] Last Admin: 06/14/22 08:20 Dose: Not Given Potassium [facility] ([facility] Admin: 06/14/22 07:07 Dose: 20 meq [facility]nis[facility] ([facility] Last Admin: 06/14/22 07:08 Dose: 20 mg Senna (Sennosides 1 Tablet) 2 tab PO [facility] Last Admin: 06/13/22 20:27 Dose: 2 tab Sertraline HCl (Sertraline 50 Mg Tablet) 50 mg PO DAILY [facility] Last Admin: 06/14/22 08:19 Dose: 50 mg Sertraline HCl (Sertraline 50 Mg Tablet) 25 mg PO BID [facility] Last Admin: 06/14/22 08:20 Dose: 25 mg Sodium Chloride (0.9 % Sodium Chloride 10 Ml Syringe) 10 ml IV Q8 [facility] Last Admin: 06/14/22 04:12 Dose: 10 ml Trazodone HCl (Trazodone Hcl 50 Mg Tablet) 25 mg PO HSP PRN PRN Reason: Insomnia Vitamin D (Vitamin D3 25 Mcg Tablet) 25 mcg PO DAILY [facility] Last Admin: 06/14/22 08:19 Dose: 25 mcg A/P Assessment and plan (1) CHF exacerbation: Status: Acute (2) Atrial fibrillation: Status: Acute (3) Hyperglycemia due to type 2 diabetes mellitus: Status: Acute (4) History of right breast cancer: Status: Acute (5) Hypokalemia: Status: Acute (6) Oral aphthous ulcer: Status: Acute Narrative A/P Narrative: Assessment and Plans: 1. CHF with exacerbation: Inpatient med surg telemetry Supplemental oxygen therapy as needed to keep spo2>=92% Strict intake and output Daily weigh 2L/day fluid restriction 2D echocardiogram showing conserved systolic ejection fractions of 65 to 70% with grade 2 diastolic dysfunction Lasix 40mg IV-->PO BID Losartan Metoprolol tartrate 2. Atrial fibrillation: Amiodarone Metoprolol tartrate Lopressor 5mg IV q5min X3 doses PRN HR>120bpm, hold if SBP<90 and/or DBP<50mmHg Eliquis 2D echocardiogram showing conserved systolic ejection fractions of 65 to 70% with grade 2 diastolic dysfunction 3. Hyperglycemia with T2DM: HgA1c 9.5 Hold oral hypoglycemics Lantus 10 unit HS Low dose SSI AC HS Accu Chek AC HS Hypoglycemia protocol Diabetic diet 4. Hypokalemia: Potassium chloride 20mEq PO BID CMP daily to trend serum potassium level Also check serum Mg level and replace if needed 5. h/o right breast cancer: Continue hormone therapy 6. Aphthous ulcers: Viscous lidocaine 2% swish and spit TID PRN pain GI ppx: not currently indicated DVT ppx: Eliquis Code status: Full Prognosis: Stable Disposition: inpatient med surg telemetry; [facility] Time Spent With Patient Time: Total time spent is greater than 50% in coordination of care (as documented) at patient's floor/unit and/or counseling patient: Total time spent with greater than 50% in coordination of care (as documented) at patient's floor/unit and/or counseling patient:: 25 - 35 minutes QUALITY Stroke Symptom Onset Unknown: No VTE Deep Vein Thrombosis/Pulmonary Embolism Present on Admission: No
[2022-06-14] MEDS: FUROSEMIDE 40 MG TABLET PO SCH (15:41)
[2022-06-14] MEDS: GABAPENTIN 400 MG CAPSULE PO SCH (21:23)
[2022-06-14] MEDS: SENNOSIDES 1 TABLET PO SCH (21:23)
[2022-06-14] MEDS: INSULIN GLARGINE, HUMAN 1 UNIT/0.01 ML SQ SCH (21:24)
[2022-06-15] MEDS: 0.9 % SODIUM CHLORIDE 10 ML SYRINGE IV SCH (06:13)
[2022-06-15] MEDS: FUROSEMIDE 40 MG TABLET PO SCH (07:25)
[2022-06-15] MEDS: POTASSIUM CHLORIDE 10 MEQ TABLET PO SCH (07:25)
[2022-06-15] MEDS: predniSONE 20 MG TABLET PO SCH (07:25)
[2022-06-15] MEDS: OMEPRAZOLE 20 MG CAPSULE PO SCH (07:25)
[2022-06-15] MEDS: INSULIN LISPRO 1 UNIT/0.01 ML UNIT SQ SCH ×2 (07:25→11:05)
[2022-06-15 07:28] LABS: Basophils # (Auto) 0.01 K/mcL (0.00-0.30); Basophils % (Auto) 0.1 % (0.0-2.0); Eosinophils # (Auto) 0 K/mcL (0.00-0.70); Eosinophils % (Auto) 0 % (0.0-7.0); Hematocrit 27.8 % (34.1-44.9); Hemoglobin 9.1 g/dL (11.2-15.7); Lymphocytes # (Auto) 1.13 K/mcL (1.50-4.80); Lymphocytes % (Auto) 15.5 % (15.5-49.0); Mean Cell Volume 98.6 fL (80.0-100.0); Mean Corpuscular HGB Conc 32.7 g/dL (31.0-36.0); Mean Platelet Volume 10.6 fL (8.8-12.5); Monocytes # (Auto) 0.43 K/mcL (0.10-0.90); Monocytes % (Auto) 5.9 % (1.0-12.0); Neutrophils % (Auto) 76.2 % (38.0-78.0); Platelet Count 212 K/mcL (140-440); RBC 2.82 M/mcL (3.59-5.38); Red Cell Distribution Width 17.7 % (11.5-14.5); WBC 7.3 K/mcL (4.5-11.0)
[2022-06-15 08:15] LABS: ALT/SGPT 29 U/L (<40); AST/SGOT 12 U/L (<32); Albumin 2.7 gm/dL (3.2-5.2); Alkaline Phosphatase 77 U/L (39-117); Bilirubin,Total 0.4 mg/dL (0.1-1.0); Blood Urea Nitrogen 21 mg/dL (8-23); Calcium 8.9 mg/dL (8.6-10.4); Carbon Dioxide 31 mmol/L (22-30); Chloride 91 mmol/L (96-108); Globulin 2.6 gm/dL (2.2-3.7); Glomerular Filtration Rate 79; Glucose 215 mg/dL (70-105)
[2022-06-15 08:16] LABS: Phosphorous 3.1 mg/dL (2.5-4.5)
[2022-06-15] MEDS: AMIODARONE HCL 200 MG TABLET PO SCH (09:18)
[2022-06-15] MEDS: GABAPENTIN 100 MG CAPSULE PO SCH (09:18)
[2022-06-15] MEDS: CALCIUM CARBONATE 500 MG TAB.CHEW CHEWED SCH (09:18)
[2022-06-15] MEDS: DOCUSATE SODIUM 100 MG CAPSULE PO SCH (09:18)
[2022-06-15] MEDS: LOSARTAN 50 MG TABLET PO SCH (09:18)
[2022-06-15] MEDS: METOPROLOL TARTRATE 25 MG TABLET PO SCH (09:18)
[2022-06-15] MEDS: APIXABAN 5 MG TABLET PO SCH (09:18)
[2022-06-15] MEDS: CALCIUM (OYSTER SHELL) 500 MG TABLET PO SCH (09:19)
[2022-06-15] MEDS: SERTRALINE 50 MG TABLET PO SCH ×2 (09:22)
[2022-06-15] MEDS: VITAMIN D3 25 MCG TABLET PO SCH (09:22)
--- NOTE | 2022-06-15 09:23 | Discharge Summary ---
Discharge Provider Provider IMPORTANT FOLLOW-UP INFORMATION FOR PCP: Patient information: Note initiated : 06/15/22 at 9:21 am Service Date, if different from initiated Date: [] Patient: Isi Forman 87 y/o F admitted on 06/12/22 for weakness x 1 month, worse today. Chief Complaint: [] Date of admission: 06/12/22 16:34 Discharge date: 06/15/22 Primary care physician: Dana Boykin DO Attending physician on admission: Sly Cardoso Consults: 06/12/22 Consult to Physician [CONS] Stat Comment: Consulting Provider: Sly Cardoso Reason For Exam: Physician to Consult Attending physician on discharge: Sly Cardoso COURSE Hospital Course Hospital course: Ms. Forman is a 87 year old F history of right breast cancer status post surgery now on hormonal therapy, type 2 diabetes mellitus, atrial fibrillation's on Eliquis, presenting with 3-month history of progressively worsening exertional dyspnea, shortness of breath, bilateral leg swellings. Over the past 3 months, she is experiencing worsening exertional dyspnea, shortness of breath, and bilateral leg swellings. She cannot walk more than 2 steps with the help of walker's. She is coming of shortness of breath. She denies any cough, sputum productions, or wheezing. She denies any chest pain or palpitations. She denies any fever chills or diaphoresis. She is complaining of bilateral leg swellings, but denies any unintentional weight gain. She denies any orthopnea and she sleeps on 1 pillows. She had a echocardiogram done earlier the year and according to records it was within normal limits. Vital signs at ED presentation significant for oxygen saturating at 88% on room air, as well as bradycardia heart rate in the 50s. Labs significant for lack of leukocytosis with WBC 7.2. BNP 1600. Serum troponin with normal limits. COVID smooth screening pending. Serum sodium level 136, blood glucose 340, corrected serum sodium 132. Serum potassium 3.1. Chest x-ray showing pulmonary edema. No focal infiltrates noted. 06/13: Patient is currently on room air. Please refer to the records for exact intake and output documentations. Status post 2D echocardiogram showing conserved systolic ejection fractions of 65 to 70% with grade 2 diastolic dysfunction. Urine culture growing gram-negative bacillus, but patient denies any dysuria. The increased urinary frequency is most likely due to diuretic therapies. Patient's is complaining of painful ulcer on her tongue and on her cheeks. Patient denies any chest pain or palpitations. Improving degree of shortness of breath. Continue IV Lasix. Continue metoprolol tartrate and losartan as part of the management for heart failure. Continue basal bolus insulin regimens. Continue amiodarone, metoprolol, and Eliquis for atrial fibrillation's. Physical therapist recommended SNF placement. 06/14: Patient is currently on room air. Patient denies any shortness of breath. She denies any chest pain or pressure or tightness. She denies any fever, chills, or diaphoresis. She denies any cough or wheezing. Improving degree of the energy level. We will switch Lasix from IV to p.o. Continue metoprolol tartrate and losartan as part of the management for heart failure. Continue basal bolus insulin regimens. Continue amiodarone, metoprolol, and Eliquis for atrial fibrillation's. Pending SNF placement. 06/15: Discharged to SNF. Discharge diagnosis: CHF exacerbation Time Spent with Patient Time attestation: Total time spent providing and/or coordinating discharge services: Time spent: Greater than 30 minutes EXAM Constitutional Vitals: Temp Pulse Resp BP Pulse Ox O2 Del Method O2 Flow Rate 36.5 C 59 L 20 155/70 91 1 06/15/22 07:51 06/15/22 04:00 06/15/22 07:51 06/15/22 07:51 06/15/22 07:51 06/15/22 07:51 06/13/22 08:21 General appearance: cooperative and no acute distress Head Head exam: Present atraumatic and normocephalic Eye Eye exam: Present EOMI and PERRL ENT ENT exam: Present mucous membranes moist, normal exam and normal external ear exam Neck Neck exam: Present normal inspection; Absent lymphadenopathy, tenderness or thyromegaly Respiratory Respiratory exam: Absent accessory muscle use, respiratory distress or wheezes Cardiovascular Cardiovascular exam: Present irregular rhythm and systolic murmur; Absent JVD GI/Abdominal GI/Abdominal exam: Present normal bowel sounds and soft; Absent organomegaly or tenderness Extremities Exam Extremities exam: Present full ROM, normal capillary refill, normal inspection and pedal edema; Absent tenderness Neurological Exam Neurological exam: Present alert, CN II-XII intact and oriented X3; Absent motor sensory deficit Psychiatric Psychiatric exam: Present normal affect and normal mood; Absent anxious or depressed Skin Skin exam: Present dry and intact Discharge Data Data Completed and Pending Labs on day of discharge: Labs from last 24 hours 06/15/22 06/15/22 06:19 06:19 WBC 7.3 RBC 2.82 L Hgb 9.1 L Hct 27.8 L MCV 98.6 MCH 32.3 MCHC 32.7 RDW 17.7 H Plt Count 212 MPV 10.6 Immature Gran % (Auto) 2.3 H Neut % (Auto) 76.2 Lymph % (Auto) 15.5 [place] % (Auto) 5.9 Eos % (Auto) 0 Baso % (Auto) 0.1 Lymph # (Auto) 1.13 L [place] # (Auto) 0.43 Eos # (Auto) 0 Baso # (Auto) 0.01 Immature Gran # 0.17 H Absolute Neutrophils 5.53 Sodium 130 L Potassium 3.9 Chloride 91 L Carbon Dioxide 31 H Anion Gap 8.0 BUN 21 Creatinine 0.7 GFR Calculation 79 Glucose 215 H Calcium 8.9 Phosphorus 3.1 Magnesium 1.8 Total Bilirubin 0.4 AST 12 ALT 29 Alkaline Phosphatase 77 Total Protein 5.3 L Albumin 2.7 L Globulin 2.6 Albumin/Globulin Ratio 1.0 Discharge Plan Patient/Caregiver Discharge Instructions Prescriptions: Continued oxybutynin chloride 10 mg tablet extended release 24 hr 10 mg PO QDAY Qty: 90 1RF gabapentin 100 mg capsule 100 mg PO .COMPLEX Qty: 540 0RF Rx Instructions: take 200mg (2 caps) in the morning and take 400mg (4 caps) at bedtime pioglitazone 45 mg tablet 45 mg PO QDAY Qty: 90 1RF omeprazole 20 mg tablet,delayed release (DR/EC) 20 mg PO BID Qty: 180 1RF anastrozole 1 mg tablet 1 mg PO QDAY Eliquis 5 mg tablet 5 mg PO BID Qty: 180 1RF amiodarone 200 mg tablet 200 mg PO BID Qty: 180 1RF losartan 50 mg tablet 50 mg PO QDAY Qty: 90 1RF metoprolol tartrate 25 mg tablet 25 mg PO BID Qty: 180 1RF cholecalciferol (vitamin D3) 25 mcg (1,000 unit) capsule 25 mcg PO BID calcium carbonate 600 mg calcium (1.5 gram) Tablet,Chewable 1 tab PO BID sertraline 25 mg Tablet 25 mg PO BID prednisone 20 mg Tablet 20 mg PO BID acetaminophen 500 mg Capsule 500 mg PO Q6H PRN (Reason: Pain) Changed potassium chloride 10 mEq tablet extended release 20 meq PO QDAY Qty: 90 1RF furosemide 20 mg Tablet 40 mg PO BID 30 Days Qty: 120 0RF Other Ambulatory Orders: OT Discharge Order (Routine) Location: None Selected Ordered By: Sly Cardoso Physical Therapy at Discharge - General (Routine) Location: None Selected Ordered By: Sly Cardoso Follow Up Plan Follow up with: Dana Boykin DO [Primary Care Provider] - Patient Disposition: Xfer SNF Prognosis: Fair Rehab Potential: Good I certify that the patient requires SNF services: Yes Overall status at discharge: patient is back to baseline Discharge Orders: Discharge Order (Routine); Ordered 06/15/22 Ordered By: Sly Cardoso QUALITY VTE Deep Vein Thrombosis/Pulmonary Embolism Present on Admission: No
[2022-06-15] MEDS: OXYBUTYNIN CHLORIDE 5 MG TAB.XL.24H PO SCH (09:45)
[2022-06-15] MEDS ORDERED: PNEUMOCOCCAL 23-VAL P-SAC VAC 0.5 ML SYRINGE IM ONE (11:50)
== END 2022-06-15 13:05 | DRG 293 ==
LOC: ED 12:14 → MEDSUR 16:34
PROVIDERS: ADMIT Internal Medicine; ATTEND Internal Medicine

== ENCOUNTER 2022-06-27 08:40 | Inpatient (IN) ==
--- NOTE | 2022-06-27 08:45 | Emergency Department Note ---
Altered Mental Status HPI General Chief Complaint: Altered Mental Status Stated Complaint: decreased level of consciousness Time Seen by Provider: 06/27/22 08:45 Source: patient (Minimal information from patient.), family (The ) and EMS Mode of arrival: wheelchair Limitations: altered mental status and physical limitation (Has dementia) History of Present Illness HPI Narrative: Narrative: History comes from the and from EMS. EMS reports that the patient is living at a care facility. She had 3-4 episodes of loss of consciousness last night as relayed to them. Patient is 0 on comfort measures only. Patient had altered mental status this morning and they were called. Patient had a fall on June 21. She was seen in the emergency department and a CT scan of the head was obtained which did not reveal acute pathology. Patient has scalp laceration which was repaired with ivan which have since been removed and it has been Steri-Stripped. There has been slight drainage from the wound but no redness. Today according to the the patient "blacked out". Has been states patient was tired yesterday. Patient is unable to provide any meaningful history. Patient has dementia. Patient has type 2 diabetes. Patient had ocular problem recently for which she was started on prednisone 60 mg/day. That has been reduced to 40 mg or 45 mg a day after the first couple of weeks. Patient has developed facial swelling. Related Data Home Medications Medication Instructions Recorded Confirmed anastrozole 1 mg tablet 1 mg PO QDAY 05/25/21 06/27/22 cholecalciferol (vitamin D3) 25 25 mcg PO BID 05/29/21 06/27/22 mcg (1,000 unit) capsule acetaminophen 500 mg capsule 500 mg PO Q6H PRN Pain 06/12/22 06/27/22 calcium carbonate 600 mg calcium 1 tab PO DAILY 06/12/22 06/27/22 (1.5 gram) chewable tablet prednisone 20 mg tablet 20 mg PO BID 06/12/22 06/27/22 sertraline 25 mg tablet 25 mg PO DAILY 06/12/22 06/27/22 B Complex-Vitamin B12 2,500 mcg PO DAILY 06/27/22 06/27/22 bisacodyl 10 mg rectal suppository 10 mg TX DAILYP PRN Constipation 06/27/22 06/27/22 (Dulcolax (bisacodyl)) gabapentin 100 mg capsule 200 mg PO DAILY 06/27/22 06/27/22 gabapentin 100 mg capsule 400 cap PO HS 06/27/22 06/27/22 glucagon 1 mg/0.2 mL subcutaneous 1 mg subcut Q15M PRN Hypoglycemia 06/27/22 06/27/22 syringe lidocaine HCl 2 % mucosal solution 1 applic PO QID PRN MOUTH SORES 06/27/22 06/27/22 magnesium hydroxide 2,400 mg/10 mL 10 ml PO Q2D PRN Constipation 06/27/22 06/27/22 oral suspension metolazone 2.5 mg tablet 2.5 mg PO DAILY 06/27/22 06/27/22 polyethylene glycol 3350 17 gram 17 g PO QDAY PRN Constipation 06/27/22 06/27/22 oral powder packet (Miralax) sodium phosphates 19 gram-7 118 ml TX DAILYP PRN Constipation 06/27/22 06/27/22 gram/118 mL enema (Fleet Enema) Previous Rx's Medication Instructions Recorded apixaban 5 mg tablet (Eliquis) 5 mg PO BID #180 tabs 02/28/22 pioglitazone 45 mg tablet 45 mg PO QDAY #90 tabs 04/09/22 omeprazole 20 mg tablet,delayed 20 mg PO BID #180 tabs 04/16/22 release amiodarone 200 mg tablet 200 mg PO BID #180 tabs 05/07/22 losartan 50 mg tablet 50 mg PO QDAY #90 tabs 05/07/22 metoprolol tartrate 25 mg tablet 25 mg PO BID #180 tabs 05/07/22 furosemide 20 mg tablet 40 mg PO BID 30 days #120 tabs 06/15/22 potassium chloride 10 mEq 20 meq PO QDAY #90 tabs 06/15/22 tablet,extended release oxybutynin chloride 10 mg 10 mg PO QDAY #90 tabs 06/27/22 tablet,extended release 24 hr Allergies Allergy/AdvReac Type Severity Reaction Status Date / Time No Known Drug Allergies Allergy Verified 06/27/22 08:45 Review of Systems ROS ROS Narrative: Narrative: Limitations: ROS unobtainable due to patients medical condition (Patient has dementia.) PFSH Narrative Patient History Narrative: Narrative: Medical/Surgical/Family History All Active Problems (Updated 06/27/22 @ 13:40 by Sly Cardoso MD) Stage 1 acute kidney injury (Acute) Breast cancer (Acute) Delirium (Acute) UTI (urinary tract infection) (Acute) CHF (congestive heart failure) (Acute) Laceration of head (Acute) Fall (Acute) Acute hypokalemia (Acute) Acute hyponatremia (Acute) Acute hyponatremia (Acute) Acute hypokalemia (Acute) Altered level of consciousness (Acute) Acute kidney injury (Acute) Uncontrolled type 2 diabetes mellitus with hyperglycemia (Acute) Acute UTI (Acute) Oral aphthous ulcer (Acute) Hypokalemia (Acute) History of right breast cancer (Acute) Hyperglycemia due to type 2 diabetes mellitus (Acute) Atrial fibrillation (Acute) CHF exacerbation (Acute) Lymphedema (Acute) Leg edema (Acute) Depression (Acute) Wound of skin (Acute) Balance problem (Acute) Carpal tunnel syndrome on both sides (Acute) Memory changes (Acute) Fracture of tooth (Acute) Fracture of neck of humerus (Acute) Medicare annual wellness visit, subsequent (Acute) H/O malignant neoplasm of breast (Acute) Diabetic neuropathy (Acute) Diabetes (Acute) Hypertension (Acute) Medical History Balance problem Carpal tunnel syndrome on both sides Depression Diabetes Diabetic neuropathy H/O malignant neoplasm of breast 2018 Hypertension Lymphedema Memory changes Wound of skin Surgical History History of back surgery x 2 History of cardioversion (10/10/21) Family History Daughter Breast cancer Other Diabetes Social History Smoking Status: Never smoker Alcohol Intake Frequency: does not drink Substance Use: does not use Exam Narrative Narrative: Narrative: Patient was minimally communicative. She did not know the date. She could not say where she was or describe the location. She was able to state her full name and she knew that the man next to her was her . Patient was calm and mostly just unengaged during my time in the room. She did not appear to be in distress. Face swollen bilaterally compatible with prednisone use. Vital signs with normal pulse normal respirations normal temperature normal O2 sat on room air. Blood pressure 163/66. General Limitations: altered mental status and physical limitation (Has dementia) General appearance: Present alert and in no apparent distress Head Head: Present other (Scalp had bruising and healing laceration parietally. There was no erythema. I did not see any drainage at the time my examination.) Eye Eye: Absent scleral icterus Chest Chest: Absent tenderness Respiratory Respiratory: Present normal lung sounds bilaterally; Absent respiratory distress Cardiovascular Cardiovascular: Present regular rate and normal rhythm Adbominal Abdominal: Present soft; Absent tenderness Extremities Extremities: Present other (Tenderness in the left leg. Was with palpation of the soft tissue. Palpation of the tibia was nontender. Patient was able to flex her left hip her left knee and moved her left ankle without difficulty.) Back Back: Absent tenderness Neurological Neurological: Present alert; Absent oriented X3 Psychiatric Psychiatric: Present flat affect Skin Skin: Present warm (WNL), dry and other (Multiple bruises and bandaging on the right upper extremity) Course Consultations Consultation #1: Hospitalist consulted 11:45. 12:10 hospitalist called ED and case was discussed. He is concerned that the patient is comfort care only yet he would be actively treating the patient. This was discussed with the who requested that we admit the patient to hospital and give active treatment. He was also concerned that the urine dip showed small leukocytes but we did not have a urinalysis results yet. He requested to call back after we get the urinalysis results. Time: 11:45 Vital Signs Vital signs: Vital Signs Temperature 97.6 F 06/27/22 08:41 Pulse Rate 66 06/27/22 08:41 Respiratory Rate 20 06/27/22 08:41 Blood Pressure 163/66 06/27/22 08:41 Pulse Oximetry (%) 98 06/27/22 08:41 Oxygen Delivery Method 06/27/22 08:41 Temperature 97.0 F 06/27/22 20:02 Pulse Rate 61 06/27/22 18:30 Respiratory Rate 13 06/27/22 20:02 Blood Pressure 117/42 06/27/22 20:02 Pulse Oximetry (%) 99 06/27/22 20:02 Oxygen Delivery Method 06/27/22 20:02 Oxygen Flow Rate (L/min) 2 06/27/22 20:02 [facility] MDM Narrative Medical decision making narrative: Narrative: Elderly female brought in from [facility] because of blacking out this morning and having altered mental status. Possible LOC 3-4 times last night. Dementia. Comfort measures only per EMS. Differential diagnosis includes subdural hematoma, urinary tract infection, progressive dementia, electrolyte abnormality, other White count is normal at 10.8 with a low hemoglobin of 11 though that is higher than her previous values. [id number] Chem-8 showed sodium low at 123, potassium low at 2.4, chloride low at 78, bicarb high at 31, BUN high at 47 which was twice what it was 6 days ago (21) creatinine 1.5 which is double what it was 6 days ago (0.8) glucose 488 which is higher than 6 days ago when it was 348. Urinalysis and lab but the urine dip was suspicious for UTI. Head CT: IMPRESSION: 1. White matter abnormality consistent with small vessel ischemic change 2. Cerebellar atrophy 3. No intracranial hemorrhage. No acute abnormality or interval change since 06/21/2022 Chest x-ray showed no acute disease. Pending radiology review. Case was discussed with the hospitalist. He is requested and the urine results prior to decision. Family requests admission to the hospital and active treatm ent in spite of the patient being comfort care only. Urine dip showed small leukocytes. Sent to the lab and urinalysis pending. Urinalysis suggested urinary tract infection and the patient was started on ceftriaxone [address] Sharp excepted admission of the patient and will assume care. Sepsis Sepsis Identified: No Lab Data Result diagrams: 06/27/22 09:28 Labs: Lab Results 06/27/22 06/27/22 06/27/22 Range/Units 09:28 09:35 09:35 WBC 10.8 (4.5-11.0) K/mcL RBC 3.36 L (3.59-5.38) M/mcL Hgb 11.0 L (11.2-15.7) g/dL Hct 31.5 L (34.1-44.9) % POC Hct 34.0 L (36-48) MCV 93.8 (80.0-100.0) fL MCH 32.7 (26.0-34.0) pg MCHC 34.9 (31.0-36.0) g/dL RDW 16.1 H (11.5-14.5) % Plt Count 268 (140-440) K/mcL MPV 11.4 (8.8-12.5) fL Immature Gran % (Auto) 1.6 H (0.0-0.5) % Neut % (Auto) 80.1 H (38.0-78.0) % Lymph % (Auto) 11.3 L (15.5-49.0) % [place] % (Auto) 6.9 (1.0-12.0) % Eos % (Auto) 0 (0.0-7.0) % Baso % (Auto) 0.1 (0.0-2.0) % Lymph # (Auto) 1.21 L (1.50-4.80) K/mcL [place] # (Auto) 0.74 (0.10-0.90) K/mcL Eos # (Auto) 0 (0.00-0.70) K/mcL Baso # (Auto) 0.01 (0.00-0.30) K/mcL Immature Gran # 0.17 H (0.00-0.05) K/mcl Absolute Neutrophils 8.62 H (1.80-8.00) K/mcL POC VBG pH (7.32-7.42) POC VBG pCO2 at Temp (41-51) POC VBG pO2 (25-40) POC VBG HCO3 (24-28) POC VBG Total CO2 (25-29) POC Venous O2 Sat (40-70) POC VBG Base Excess (-2-2) VBG Lactic Acid (0.5-2) POC Sodium 123 L (133-145) POC Potassium 2.4 L* (3.3-5.1) POC Chloride 78 L (96-108) POC Total CO2 31.0 H (22-30) POC BUN 47 H (6-20) POC Creatinine 1.5 H (0.6-1.2) POC Glucose 488 H* (70-105) POC WB Ioniz Calcium 1.04 L (1.16-1.32) Total Bilirubin (0.1-1.0) mg/dL Direct Bilirubin (<0.3) mg/dL AST (<32) U/L ALT (<40) U/L Alkaline Phosphatase (39-117) U/L Total Protein (5.9-8.4) gm/dL Albumin (3.2-5.2) gm/dL Globulin (2.2-3.7) gm/dL Beta-Hydroxybutyrate 1.42 H (<0.27) mmol/L Urine Color Urine Appearance (Clear) Urine pH (5.0-9.0) Ur Specific [place] (1.000-1.035) Urine Protein (Negative) mg/dL Urine Glucose (UA) (Negative) mg/dL Urine Ketones (Negative) mg/dL Urine Occult Blood (Negative) mg/dL Urine Nitrate (Negative) Urine Bilirubin (Negative) mg/dL Urine Urobilinogen mg/dL Ur Leukocyte Esterase (Negative) /uL Urine RBC (0-3) /hpf Urine WBC (0-4) /hpf Ur Squamous Epith Cells (0-4) /hpf Urine Bacteria (0) /hpf Hyaline Casts (0-2) /lph Urine Mucus (None) /hpf Ur Culture Indicated? 06/27/22 06/27/22 06/27/22 Range/Units 09:35 10:53 11:54 WBC (4.5-11.0) K/mcL RBC (3.59-5.38) M/mcL Hgb (11.2-15.7) g/dL Hct (34.1-44.9) % POC Hct (36-48) MCV (80.0-100.0) fL MCH (26.0-34.0) pg MCHC (31.0-36.0) g/dL RDW (11.5-14.5) % Plt Count (140-440) K/mcL MPV (8.8-12.5) fL Immature Gran % (Auto) (0.0-0.5) % Neut % (Auto) (38.0-78.0) % Lymph % (Auto) (15.5-49.0) % [place] % (Auto) (1.0-12.0) % Eos % (Auto) (0.0-7.0) % Baso % (Auto) (0.0-2.0) % Lymph # (Auto) (1.50-4.80) K/mcL [place] # (Auto) (0.10-0.90) K/mcL Eos # (Auto) (0.00-0.70) K/mcL Baso # (Auto) (0.00-0.30) K/mcL Immature Gran # (0.00-0.05) K/mcl Absolute Neutrophils (1.80-8.00) K/mcL POC VBG pH 7.59 H (7.32-7.42) POC VBG pCO2 at Temp 42.7 (41-51) POC VBG pO2 30 (25-40) POC VBG HCO3 41.3 H* (24-28) POC VBG Total CO2 43.0 H* (25-29) POC Venous O2 Sat 69.0 (40-70) POC VBG Base Excess 20.0 H* (-2-2) VBG Lactic Acid 2.1 H (0.5-2) POC Sodium (133-145) POC Potassium (3.3-5.1) POC Chloride (96-108) POC Total CO2 (22-30) POC BUN (6-20) POC Creatinine (0.6-1.2) POC Glucose (70-105) POC WB Ioniz Calcium (1.16-1.32) Total Bilirubin 1.0 (0.1-1.0) mg/dL Direct Bilirubin 0.3 H (<0.3) mg/dL AST 17 (<32) U/L ALT 42 H (<40) U/L Alkaline Phosphatase 98 (39-117) U/L Total Protein 6.5 (5.9-8.4) gm/dL Albumin 3.6 (3.2-5.2) gm/dL Globulin 2.9 (2.2-3.7) gm/dL Beta-Hydroxybutyrate (<0.27) mmol/L Urine Color Yellow Urine Appearance Cloudy A (Clear) Urine pH 8.0 (5.0-9.0) Ur Specific [place] 1.007 (1.000-1.035) Urine Protein Negative (Negative) mg/dL Urine Glucose (UA) >=500 A (Negative) mg/dL Urine Ketones Negative (Negative) mg/dL Urine Occult Blood 0.20 (Negative) mg/dL Urine Nitrate Negative (Negative) Urine Bilirubin Negative (Negative) mg/dL Urine Urobilinogen Negative mg/dL Ur Leukocyte Esterase 500 A (Negative) /uL Urine RBC 18 H (0-3) /hpf Urine WBC > 182 H (0-4) /hpf Ur Squamous Epith Cells < 1 (0-4) /hpf Urine Bacteria None (0) /hpf Hyaline Casts 2 (0-2) /lph Urine Mucus Few A (None) /hpf Ur Culture Indicated? yes EKG Data EKG #1: EKG attestation: Yes I reviewed and interpreted this EKG. EKG shows normal: sinus rhythm Rate: normal [place]/QRS: left axis deviation Voltage: c/w LVH Heart block present: LBBB ST segment elevation in: v1, v2 and v3 Interpretation: other (Abnormal EKG. Left ventricular hypertrophy. Left axis deviation. [address] elevation V1. Less than [address] elevation in V2 V3. Left bundle branch block) Discharge Plan Patient/Caregiver Discharge Instructions Pt seen by JEWELRY FACER/PA only: No Clinical Impression: Altered level of consciousness, Acute hyponatremia, Acute hypokalemia, Acute kidney injury, Uncontrolled type 2 diabetes mellitus with hyperglycemia, Acute UTI Patient Disposition: Xfer As Inpt ([facility]) Condition: Serious Discharge Date/Time: 06/27/22 15:00
--- NOTE | 2022-06-27 09:45 | Cat Scan Report ---
INDICATION: Altered mental status. fall 06/21/22. CT head (-) COMPARISON: Previous brain CT scan dated 06/21/2022 TECHNIQUE: Axial noncontrast-enhanced images through the brain. Sagittally and coronally reformatted images. FINDINGS: Cerebral hemispheres:No acute intra-axial hemorrhage. There is cerebral atrophy, unchanged. This is within normal limits for age. There is white matter abnormality and a predominantly periventricular distribution. Appearance is consistent with small vessel ischemic change. No acute or focal abnormality. No localized mass effect. No interval change. Brainstem and cerebellum:No intra-axial abnormality. There is cerebellar atrophy. Extra-axial:No acute hemorrhage. No subdural or epidural hematoma. No subarachnoid hemorrhage. Basilar cisterns are normal Calvarial:No calvarial fracture. No lytic lesion Temporal bones are negative. No destructive lesions Soft tissue, orbits, sinuses:There are skin ivan overlying the right parietal bone. Soft tissue abnormality IMPRESSION: 1. White matter abnormality consistent with small vessel ischemic change 2. Cerebellar atrophy 3. No intracranial hemorrhage. No acute abnormality or interval change since 06/21/2022 The exam was performed using radiation dose optimization techniques including, but not limited to, automated exposure control, adjustment of the mA and/or kV according to patient size and use of iterative reconstruction technique. Interpreted and Authenticated by: Sumeet Briscoe 06/27/22
[2022-06-27 11:27] LABS: POC Calcium, Ionized 1.04 (1.16-1.32); POC Creatinine 1.5 (0.6-1.2); POC Potassium 2.4 (3.3-5.1)
[2022-06-27 11:29] LABS: Basophils # (Auto) 0.01 K/mcL (0.00-0.30); Basophils % (Auto) 0.1 % (0.0-2.0); Eosinophils # (Auto) 0 K/mcL (0.00-0.70); Eosinophils % (Auto) 0 % (0.0-7.0); Hematocrit 31.5 % (34.1-44.9); Lymphocytes # (Auto) 1.21 K/mcL (1.50-4.80); Lymphocytes % (Auto) 11.3 % (15.5-49.0); Mean Cell Volume 93.8 fL (80.0-100.0); Mean Corpuscular HGB Conc 34.9 g/dL (31.0-36.0); Mean Platelet Volume 11.4 fL (8.8-12.5); Monocytes # (Auto) 0.74 K/mcL (0.10-0.90); Monocytes % (Auto) 6.9 % (1.0-12.0); Neutrophils % (Auto) 80.1 % (38.0-78.0); Platelet Count 268 K/mcL (140-440); RBC 3.36 M/mcL (3.59-5.38); Red Cell Distribution Width 16.1 % (11.5-14.5); WBC 10.8 K/mcL (4.5-11.0)
[2022-06-27] MEDS ORDERED: POTASSIUM CHLORIDE 20 MEQ TABLET PO ONE (11:31)
[2022-06-27] MEDS ORDERED: INSULIN REGULAR, HUMAN 1 UNIT/0.01 ML UNIT IV ONE ×2 (11:43→13:12)
[2022-06-27] MEDS ORDERED: POTASSIUM CHLORIDE 20 MEQ in DEXTROSE 5% IN WATER 250 ML IV ONE (11:43)
--- NOTE | 2022-06-27 12:25 | XRay Report ---
INDICATION: ALOC TECHNIQUE: AP portable upright chest x-ray COMPARISON: Previous chest x-ray dated 06/12/2022 FINDINGS: Lungs:Lungs are negative. No focal pulmonary parenchymal infiltrate or mass Heart, vascular:No significant cardiomegaly. Pulmonary vascularity is normal. No pulmonary edema or pulmonary congestion Mediastinum, clif:No mediastinal widening. No hilar mass Pleura:No pleural fluid. No pleural-based mass or calcification Skeletal:Previous open reduction and internal fixation of right shoulder fracture IMPRESSION: No acute abnormality. No interval change since 06/12/2022 Interpreted and Authenticated by: Sumeet Briscoe 06/27/22
[2022-06-27 12:28] LABS: Albumin 3.6 gm/dL (3.2-5.2); Bilirubin,Direct 0.3 mg/dL (<0.3); Globulin 2.9 gm/dL (2.2-3.7)
[2022-06-27 12:55] LABS: Appearance,Urine CLOUDY (Clear); Bilirubin,Urine Negative (Negative); Color,Urine YELLOW; Culture Indicated,Urine yes; Glucose,Urine (UA) >=500 mg/dL (Negative); Ketones,Urine Negative (Negative); Leukocyte Esterase,Urine 500 /uL (Negative); Mucus,Urine FEW /hpf; Nitrate,Urine Negative (Negative); Protein,Urine Negative (Negative); Specific Gravity,Urine 1.007 (1.000-1.035); Urine Hyaline Cast 2 /lph (0-2); Urine RBC 18 /hpf (0-3); Urine Squamous Epithelial Cell < 1 /hpf (0-4); Urine WBC > 182 /hpf (0-4); Urobilinogen,Urine Negative
[2022-06-27] MEDS ORDERED: cefTRIAXone 1 GM VIAL IV ONE (13:06)
--- NOTE | 2022-06-27 13:35 | Internal Med History&Physical ---
HPI History of Present Illness Patient information: Note initiated : 06/27/22 at 1:28 pm Service Date, if different from initiated Date: [] Patient: Isi Forman a 87 y/o F admitted on for decreased level of consciousness. Chief Complaint: [altered mental status, falls ] Chief complaint: altered mental status, falls History of present illness: Ms. Forman is a 87 year old F history of right breast cancer status post surgery n ow on hormonal therapy, type 2 diabetes mellitus, atrial fibrillation on Eliquis, CHF, presenting with altered mental status and frequent falls. She was hospitalized in our facility about 2 weeks ago for CHF exacerbation and [facility] It was reported that the patient have frequent falls with the last episode earlier today with seemingly altered mental status in the POST so the prison staff to send the patient is here to our ED for further evaluation and treatments. She had a documented comfort care only POLST form but at the bedside stated that she is now full code and he wants her to be treated with everything possible. Patient is alert and oriented x2 to person and place only and she is not sure what has happened. Labs significant for lack of leukocytosis with WBC 10.8. Blood glucose 488, corrected sodium level 132, potassium level 2.8. Bicarb of 30 and anion gap of 14. UA suggest the presence of urinary tract infections. Head CT showing right better abnormalities consistent with small vessel ischemic changes. It also shows cerebellar atrophy and no intracranial hemorrhage. No acute abnormalities seen relative to last study 6 days ago. Chest x-ray unremarkable. Review of Systems ROS unobtainable: due to mental status PFSH PFSH All Active Problems (Updated 06/27/22 @ 13:40 by Sly Cardoso MD) Stage 1 acute kidney injury (Acute) Breast cancer (Acute) Delirium (Acute) UTI (urinary tract infection) (Acute) CHF (congestive heart failure) (Acute) Laceration of head (Acute) Fall (Acute) Acute hypokalemia (Acute) Acute hyponatremia (Acute) Acute hyponatremia (Acute) Acute hypokalemia (Acute) Altered level of consciousness (Acute) Acute kidney injury (Acute) Uncontrolled type 2 diabetes mellitus with hyperglycemia (Acute) Acute UTI (Acute) Oral aphthous ulcer (Acute) Hypokalemia (Acute) History of right breast cancer (Acute) Hyperglycemia due to type 2 diabetes mellitus (Acute) Atrial fibrillation (Acute) CHF exacerbation (Acute) Lymphedema (Acute) Leg edema (Acute) Depression (Acute) Wound of skin (Acute) Balance problem (Acute) Carpal tunnel syndrome on both sides (Acute) Memory changes (Acute) Fracture of tooth (Acute) Fracture of neck of humerus (Acute) Medicare annual wellness visit, subsequent (Acute) H/O malignant neoplasm of breast (Acute) Diabetic neuropathy (Acute) Diabetes (Acute) Hypertension (Acute) Medical History Balance problem Carpal tunnel syndrome on both sides Depression Diabetes Diabetic neuropathy H/O malignant neoplasm of breast 2018 Hypertension Lymphedema Memory changes Wound of skin Surgical History History of back surgery x 2 History of cardioversion (10/10/21) Family History Daughter Breast cancer Other Diabetes Social History marital status: smoking status: Never smoker alcohol intake frequency: does not drink substance use type: does not use MEDS/ALLERGIES Home Medications and Allergies Home Medications Medication Instructions Recorded Confirmed Type anastrozole 1 mg tablet 1 mg PO QDAY 05/25/21 06/12/22 History cholecalciferol (vitamin D3) 25 25 mcg PO BID 05/29/21 06/12/22 History mcg (1,000 unit) capsule apixaban 5 mg tablet (Eliquis) 5 mg PO BID #180 tabs 02/28/22 06/12/22 Rx pioglitazone 45 mg tablet 45 mg PO QDAY #90 tabs 04/09/22 06/12/22 Rx omeprazole 20 mg tablet,delayed 20 mg PO BID #180 tabs 04/16/22 06/12/22 Rx release amiodarone 200 mg tablet 200 mg PO BID #180 tabs 05/07/22 06/12/22 Rx losartan 50 mg tablet 50 mg PO QDAY #90 tabs 05/07/22 06/12/22 Rx metoprolol tartrate 25 mg tablet 25 mg PO BID #180 tabs 05/07/22 06/12/22 Rx acetaminophen 500 mg capsule 500 mg PO Q6H PRN Pain 06/12/22 06/12/22 History calcium carbonate 600 mg calcium 1 tab PO BID 06/12/22 06/12/22 History (1.5 gram) chewable tablet prednisone 20 mg tablet 20 mg PO BID 06/12/22 06/12/22 History sertraline 25 mg tablet 25 mg PO BID 06/12/22 06/12/22 History furosemide 20 mg tablet 40 mg PO BID 30 days #120 tabs 06/15/22 Rx potassium chloride 10 mEq 20 meq PO QDAY #90 tabs 06/15/22 Rx tablet,extended release gabapentin 100 mg capsule 100 mg PO .COMPLEX #540 caps 06/27/22 Rx oxybutynin chloride 10 mg 10 mg PO QDAY #90 tabs 06/27/22 Rx tablet,extended release 24 hr Allergies Allergy/AdvReac Type Severity Reaction Status Date / Time No Known Drug Allergies Allergy Verified 06/27/22 08:45 EXAM Constitutional Vitals: Temp Pulse Resp BP Pulse Ox O2 Del Method 36.4 C 65 14 128/69 100 06/27/22 08:41 06/27/22 13:02 06/27/22 13:10 06/27/22 13:02 06/27/22 13:02 06/27/22 08:41 General appearance: average body habitus, cooperative, disheveled and no acute distress Head Head exam: Present normocephalic; Absent atraumatic or normal inspection Additional comments: healed laceration occiput Cardiovascular Cardiovascular exam: Present irregular rhythm Skin Skin exam: Present abrasion DATA Data Completed and Pending Labs: Labs from last 24 hours 06/27/22 06/27/22 06/27/22 11:54 10:53 09:35 WBC RBC Hgb Hct POC Hct MCV MCH MCHC RDW Plt Count MPV Immature Gran % (Auto) Neut % (Auto) Lymph % (Auto) [place] % (Auto) Eos % (Auto) Baso % (Auto) Lymph # (Auto) [place] # (Auto) Eos # (Auto) Baso # (Auto) Immature Gran # Absolute Neutrophils POC VBG pH 7.59 H POC VBG pCO2 at Temp 42.7 POC VBG pO2 30 POC VBG HCO3 41.3 H* POC VBG Total CO2 43.0 H* POC Venous O2 Sat 69.0 POC VBG Base Excess 20.0 H* VBG Lactic Acid 2.1 H POC Sodium POC Potassium POC Chloride POC Total CO2 POC BUN POC Creatinine POC Glucose POC WB Ioniz Calcium Total Bilirubin 1.0 Direct Bilirubin 0.3 H AST 17 ALT 42 H Alkaline Phosphatase 98 Total Protein 6.5 Albumin 3.6 Globulin 2.9 Beta-Hydroxybutyrate Urine Color Yellow Urine Appearance Cloudy A Urine pH 8.0 Ur Specific [place] 1.007 Urine Protein Negative Urine Glucose (UA) >=500 A Urine Ketones Negative Urine Occult Blood 0.20 Urine Nitrate Negative Urine Bilirubin Negative Urine Urobilinogen Negative Ur Leukocyte Esterase 500 A Urine RBC 18 H Urine WBC > 182 H Ur Squamous Epith Cells < 1 Urine Bacteria None Hyaline Casts 2 Urine Mucus Few A Ur Culture Indicated? yes 06/27/22 06/27/22 06/27/22 09:35 09:35 09:28 WBC 10.8 RBC 3.36 L Hgb 11.0 L Hct 31.5 L POC Hct 34.0 L MCV 93.8 MCH 32.7 MCHC 34.9 RDW 16.1 H Plt Count 268 MPV 11.4 Immature Gran % (Auto) 1.6 H Neut % (Auto) 80.1 H Lymph % (Auto) 11.3 L [place] % (Auto) 6.9 Eos % (Auto) 0 Baso % (Auto) 0.1 Lymph # (Auto) 1.21 L [place] # (Auto) 0.74 Eos # (Auto) 0 Baso # (Auto) 0.01 Immature Gran # 0.17 H Absolute Neutrophils 8.62 H POC VBG pH POC VBG pCO2 at Temp POC VBG pO2 POC VBG HCO3 POC VBG Total CO2 POC Venous O2 Sat POC VBG Base Excess VBG Lactic Acid POC Sodium 123 L POC Potassium 2.4 L* POC Chloride 78 L POC Total CO2 31.0 H POC BUN 47 H POC Creatinine 1.5 H POC Glucose 488 H* POC WB Ioniz Calcium 1.04 L Total Bilirubin Direct Bilirubin AST ALT Alkaline Phosphatase Total Protein Albumin Globulin Beta-Hydroxybutyrate 1.42 H Urine Color Urine Appearance Urine pH Ur Specific [place] Urine Protein Urine Glucose (UA) Urine Ketones Urine Occult Blood Urine Nitrate Urine Bilirubin Urine Urobilinogen Ur Leukocyte Esterase Urine RBC Urine WBC Ur Squamous Epith Cells Urine Bacteria Hyaline Casts Urine Mucus Ur Culture Indicated? A/P Assessment and plan (1) Acute hypokalemia: Status: Acute (2) Uncontrolled type 2 diabetes mellitus with hyperglycemia: Status: Acute (3) Atrial fibrillation: Status: Acute (4) CHF (congestive heart failure): Status: Acute (5) UTI (urinary tract infection): Status: Acute (6) Wound of skin: Status: Acute (7) Delirium: Status: Acute (8) Breast cancer: Status: Acute (9) Stage 1 acute kidney injury: Status: Acute Narrative A/P Narrative: Assessment and Plans: 1. UTI: Inpatient PCU Blood culture Urine culture Serial lactic acid Procalcitonin cbc w/ auto diff in the AM to trend WBC Rocephin Physical therapy 2. Hyperglycemia with T2DM: HgA1c Hold oral hypoglycemics Lantus 10 unit HS High dose SSI AC HS Accu Chek AC HS Hypoglycemia protocol Diabetic diet 3. Hypokalemia: s/p IV and PO potassium replacement in the ED, to be followed by continue PO replacement CMP daily to trend serum potassium level Also check serum Mg level and replace if needed 4. Stage 1 acute kidney injury: Saline lock Hold Lasix Hold Losartan CMP in the morning to trend kidney functions 5. Acute delirium: CT head w/o contrast no acute changes Likely 2/2 #1-4, treat accordingly, see above 6. Atrial fibrillation: Hold Eliquis due to frequent falls Amiodarone Metoprolol tartrate 6. h/o CHF, stable: Metoprolol tartrate Hold Lasix Hold Losartan 7. h/o breast cancer: Anastrozole 8. Right elbow wound: Consult wound care team, recs. appreciated GI ppx: not currently indicated DVT ppx: Heparin Code status: Full Prognosis: guarded Disposition: inpatient PCU Time Spent With Patient Time: Total time spent is greater than 50% in coordination of care (as documented) at patient's floor/unit and/or counseling patient: Total time spent with greater than 50% in coordination of care (as documented) at patient's floor/unit and/or counseling patient:: 50 - 70 minutes
[2022-06-27] MEDS ORDERED: ACETAMINOPHEN 325 MG TABLET PO ONE (14:49)
[2022-06-27] MEDS ORDERED: DEXTROSE 31 GM ORAL.SUSP PO PRN (15:02)
[2022-06-27] MEDS ORDERED: IPRATROPIUM/ALBUTEROL 3 ML AMPUL.NEB NEB PRN (15:02)
[2022-06-27] MEDS ORDERED: DEXTROSE 50% 50 ML VIAL IV PRN (15:02)
[2022-06-27] MEDS ORDERED: morphine 2 MG/ML VIAL IV PRN (15:02)
[2022-06-27] MEDS ORDERED: ONDANSETRON 4 MG/2 ML VIAL IV PRN (15:02)
[2022-06-27] MEDS ORDERED: cefTRIAXone 1 GM in DEXTROSE 5% IN WATER 50 ML IV SCH (15:02)
[2022-06-27] MEDS ORDERED: LACTULOSE 20 GM/30 ML ORAL.SOL PO PRN (15:02)
[2022-06-27] MEDS ORDERED: SENNOSIDES 1 TABLET PO PRN (15:02)
[2022-06-27] MEDS: 0.9 % SODIUM CHLORIDE 10 ML SYRINGE IV SCH ×2 (16:12→22:26)
[2022-06-27 18:04] LABS: Estimated Average Glucose(eAG) 240 mg/dL
[2022-06-27] MEDS: INSULIN LISPRO 1 UNIT/0.01 ML UNIT SQ SCH ×2 (18:18→21:49)
[2022-06-27] MEDS ORDERED: POLYETHYLENE GLYCOL 3350 17 GM PACKET PO PRN (19:02)
[2022-06-27] MEDS ORDERED: LIDOCAINE VISCOUS 2% 15 ML UNIT DOSE CUP PO PRN (19:02)
[2022-06-27] MEDS ORDERED: BISACODYL 10 MG SUPP.RECT PR PRN (19:02)
[2022-06-27] MEDS ORDERED: NON FORMULARY MEDICATION 1 DOSE MISCELL (Acetaminophen 500 mg Capsule) PO PRN (19:02)
[2022-06-27] MEDS ORDERED: FLEETS ADULT ENEMA PR PRN (19:02)
[2022-06-27] MEDS: morphine 2 MG/ML VIAL IV PRN (21:42)
[2022-06-27] MEDS ORDERED: MAGNESIUM HYDROXIDE 30 ML ORAL.SUSP PO PRN (21:53)
[2022-06-27] MEDS: HEPARIN 5,000 UNIT/ML VIAL SQ SCH (21:55)
[2022-06-27] MEDS: DOCUSATE SODIUM 100 MG CAPSULE PO SCH (21:56)
[2022-06-27] MEDS: AMIODARONE HCL 200 MG TABLET PO SCH (21:56)
[2022-06-27] MEDS: METOPROLOL TARTRATE 25 MG TABLET PO SCH (21:56)
[2022-06-27] MEDS: INSULIN GLARGINE, HUMAN 1 UNIT/0.01 ML SQ SCH (21:57)
[2022-06-27] MEDS: GABAPENTIN 400 MG CAPSULE PO SCH (22:01)
[2022-06-28] MEDS: morphine 2 MG/ML VIAL IV PRN (04:24)
[2022-06-28] MEDS: 0.9 % SODIUM CHLORIDE 10 ML SYRINGE IV SCH ×3 (05:35→21:13)
[2022-06-28 07:25] LABS: Basophils # (Auto) 0.01 K/mcL (0.00-0.30); Basophils % (Auto) 0.1 % (0.0-2.0); Eosinophils # (Auto) 0.01 K/mcL (0.00-0.70); Eosinophils % (Auto) 0.1 % (0.0-7.0); Hematocrit 32.4 % (34.1-44.9); Hemoglobin 10.6 g/dL (11.2-15.7); Lymphocytes # (Auto) 1.38 K/mcL (1.50-4.80); Lymphocytes % (Auto) 14.5 % (15.5-49.0); Mean Cell Volume 98.8 fL (80.0-100.0); Mean Corpuscular HGB Conc 32.7 g/dL (31.0-36.0); Mean Platelet Volume 11.5 fL (8.8-12.5); Monocytes # (Auto) 0.63 K/mcL (0.10-0.90); Monocytes % (Auto) 6.6 % (1.0-12.0); Neutrophils % (Auto) 77.7 % (38.0-78.0); Platelet Count 237 K/mcL (140-440); RBC 3.28 M/mcL (3.59-5.38); Red Cell Distribution Width 17.1 % (11.5-14.5); WBC 9.5 K/mcL (4.5-11.0)
--- NOTE | 2022-06-28 07:39 | EKG ---
[facility] Test Date: 2022-06-27 Pat Name: Isi Forman Department: ED Room: Gender: Female [facility] Partner: AW : [id number] Requested By: Db Espinoza Order Number: [id number] Reading MD: Sebas Negrete Measurements Intervals [place] Rate: 64 P: -50 [place]: 176 QRS: -26 QRSD: 120 T: 73 QT: 586 QTc: 605 Interpretive Statements Sinus or ectopic atrial rhythm Incomplete left bundle branch block Left ventricular hypertrophy ST depression, consider ischemia, lateral lds Prolonged QT interval Electronically Signed On 06-28-2022 7:39:05 PDT by Sebas Negrete /store/M0/[id number]/[email or web address]/[id number]
[2022-06-28] MEDS: OMEPRAZOLE 20 MG CAPSULE PO SCH ×2 (08:15→17:21)
[2022-06-28] MEDS: INSULIN LISPRO 1 UNIT/0.01 ML UNIT SQ SCH ×4 (08:15→21:11)
[2022-06-28 08:24] LABS: ALT/SGPT 38 U/L (<40); AST/SGOT 19 U/L (<32); Albumin 3.4 gm/dL (3.2-5.2); Albumin/Globulin Ratio 1.5 (1.0-2.3); Alkaline Phosphatase 92 U/L (39-117); Bilirubin,Total 0.6 mg/dL (0.1-1.0); Blood Urea Nitrogen 63 mg/dL (8-23); Carbon Dioxide 34 mmol/L (22-30); Chloride 80 mmol/L (96-108); Globulin 2.2 gm/dL (2.2-3.7); Glomerular Filtration Rate 27; Glucose 128 mg/dL (70-105); Phosphorous 4.1 mg/dL (2.5-4.5)
[2022-06-28] MEDS: METOLAZONE 2.5 MG TABLET PO SCH (09:04)
[2022-06-28] MEDS: CYANOCOBALAMIN (VITAMIN B-12) 500 MCG TABLET PO SCH (09:17)
[2022-06-28] MEDS: OXYBUTYNIN CHLORIDE 5 MG TAB.XL.24H PO SCH (09:17)
[2022-06-28] MEDS: DOCUSATE SODIUM 100 MG CAPSULE PO SCH ×2 (09:18→21:12)
[2022-06-28] MEDS: AMIODARONE HCL 200 MG TABLET PO SCH ×2 (09:18→21:11)
[2022-06-28] MEDS: VITAMIN D3 25 MCG TABLET PO SCH ×2 (09:18→21:12)
[2022-06-28] MEDS: SERTRALINE 50 MG TABLET PO SCH (09:18)
[2022-06-28] MEDS: predniSONE 20 MG TABLET PO SCH ×2 (09:18→17:21)
[2022-06-28] MEDS: POTASSIUM CHLORIDE 10 MEQ TABLET PO SCH (09:19)
[2022-06-28] MEDS: GABAPENTIN 100 MG CAPSULE PO SCH (09:19)
[2022-06-28] MEDS: CALCIUM (OYSTER SHELL) 500 MG TABLET PO SCH (09:19)
[2022-06-28] MEDS: HEPARIN 5,000 UNIT/ML VIAL SQ SCH ×2 (09:30→21:12)
[2022-06-28] MEDS: cefTRIAXone 1 GM VIAL IV SCH (09:30)
[2022-06-28] MEDS: METOPROLOL TARTRATE 25 MG TABLET PO SCH ×2 (10:40→21:12)
--- NOTE | 2022-06-28 11:44 | Internal Med Progress Note ---
SUBJECTIVE Subjective Patient information: Note initiated : 06/28/22 at 11:33 am Service Date, if different from initiated Date: [] Patient: Isi Forman a 87 y/o F admitted on 06/27/22 for decreased level of consciousness. Chief Complaint: [] Interval history: Ms. Forman is a 87 year old F history of right breast cancer status post surgery now on hormonal therapy, type 2 diabetes mellitus, atrial fibrillation on Eliquis, CHF, presenting with altered mental status and frequent falls. She was hospitalized in our facility about 2 weeks ago for CHF exacerbation and she was discharged to [facility]. It was reported that the patient have frequent falls with the last episode earlier today with seemingly altered mental status in the POST so the [facility] staff to send the patient is here to our ED for further evaluation and treatments. She had a documented comfort care only POLST form but at the bedside stated that she is now full code and he wants her to be treated with everything possible. Patient is alert and oriented x2 to person and place only and she is not sure what has happened. Labs significant for lack of leukocytosis with WBC 10.8. Blood glucose 488, corrected sodium level 132, potassium level 2.8. Bicarb of 30 and anion gap of 14. UA suggest the presence of urinary tract infections. Head CT showing right better abnormalities consistent with small vessel ischemic changes. It also shows cerebellar atrophy and no intracranial hemorrhage. No acute abnormalities seen relative to last study 6 days ago. Chest x-ray unremarkable. 06/28: Afebrile overnight. On 4L/min oxygen. Blood and urine cultures no growth to date. Fasting glucose 151. Serum potassium 3.3. Patient denies any headaches. She denies any shortness of breath. She denies any chest pain palpitations. She denies any fever chills or diaphoresis. Improving degree of general weakness. Continue potassium replacement. Continue Rocephin for UTI while waiting for culture results. Giving Lantus 10 leg just while changing the sliding scale insulin from high scale to low scale AC HS. DC metolazone due to soft blood pressure. Continue physical therapy evaluation and treatments. Constitutional Vitals: Vital Signs Temp Pulse Resp BP Pulse Ox O2 Del Method O2 Flow Rate 36.3 C 59 L 17 118/53 94 4 06/28/22 08:23 06/28/22 08:30 06/28/22 10:01 06/28/22 09:42 06/28/22 10:01 06/28/22 10:01 06/28/22 10:01 Period Temp Pulse Resp BP Sys/Rhodes Pulse Ox O2 Del Method O2 Flow Rate Last 24 Hr 36.1 C-36.6 C 53-71 10- 91-136/41-106 80-100 Nasal Cannula- Room Air 2-8 Intake and Output 06/27/22 06/28/22 06/28/22 21:59 05:59 13:59 Intake Total 260 Output Total 1 2 1 Balance 259 -2 -1 Weight 63.503 kg Intake & Output: Intake & Output 06/27/22 06/28/22 06/28/22 21:59 05:59 13:59 Intake Total 260 Output Total 1 2 1 Balance 259 -2 -1 Weight 63.503 kg Intake: IV 260 Potassium Chloride 20 Meq In 260 Dextrose 5% in Water 250 ml @ 130 mls/hr IV ONCE ONE Rx#: [id number] Oral 0 Output: Void Amount 0 0 # of times incontinent of urine 1 2 1 Other: Urine Color Bright Yellow # Bowel Movements 0 # of times incontinent of 0 Bowels Head Head exam: Present normal inspection; Absent atraumatic Additional comments: healed laceration occiput Eye Eye exam: Present normal appearance ENT ENT exam: Present mucous membranes moist, normal exam and normal external ear exam Additional comments: Nasal cannula in place Neck Neck exam: Present normal inspection Respiratory Respiratory exam: Present normal respiratory exam Cardiovascular Cardiovascular exam: Present irregular rhythm GI/Abdominal GI/Abdominal exam: Present normal bowel sounds Back Exam Back exam: Present normal inspection Neurological Exam Neurological exam: Present alert and oriented X3 Skin Skin exam: Present intact and warm OBJ DATA Labs CBC & Chem 7: 06/28/22 05:00 06/28/22 05:00 Labs: Abnormal Lab Results 06/28/22 06/28/22 06/27/22 05:00 05:00 17:00 RBC 3.28 L Hgb 10.6 L Hct 32.4 L POC Hct RDW 17.1 H Immature Gran % (Auto) 1.0 H Neut % (Auto) Lymph % (Auto) 14.5 L Lymph # (Auto) 1.38 L Immature Gran # 0.10 H Absolute Neutrophils POC VBG pH POC VBG HCO3 POC VBG Total CO2 POC VBG Base Excess VBG Lactic Acid POC Sodium Sodium 126 L POC Potassium POC Chloride Chloride 80 L Carbon Dioxide 34 H POC Total CO2 POC BUN BUN 63 H Creatinine 1.7 H POC Creatinine Glucose 128 H POC Glucose Hemoglobin A1c POC WB Ioniz Calcium Direct Bilirubin ALT Total Protein 5.6 L Beta-Hydroxybutyrate Procalcitonin 0.17 H Urine Appearance Urine Glucose (UA) Ur Leukocyte Esterase Urine RBC Urine WBC Urine Mucus 06/27/22 06/27/22 06/27/22 17:00 11:54 10:53 RBC Hgb Hct POC Hct RDW Immature Gran % (Auto) Neut % (Auto) Lymph % (Auto) Lymph # (Auto) Immature Gran # Absolute Neutrophils POC VBG pH 7.59 H POC VBG HCO3 41.3 H* POC VBG Total CO2 43.0 H* POC VBG Base Excess 20.0 H* VBG Lactic Acid 2.1 H POC Sodium Sodium POC Potassium POC Chloride Chloride Carbon Dioxide POC Total CO2 POC BUN BUN Creatinine POC Creatinine Glucose POC Glucose Hemoglobin A1c 10.0 H POC WB Ioniz Calcium Direct Bilirubin ALT Total Protein Beta-Hydroxybutyrate Procalcitonin Urine Appearance Cloudy A Urine Glucose (UA) >=500 A Ur Leukocyte Esterase 500 A Urine RBC 18 H Urine WBC > 182 H Urine Mucus Few A 06/27/22 06/27/22 06/27/22 09:35 09:35 09:35 RBC Hgb Hct POC Hct 34.0 L RDW Immature Gran % (Auto) Neut % (Auto) Lymph % (Auto) Lymph # (Auto) Immature Gran # Absolute Neutrophils POC VBG pH POC VBG HCO3 POC VBG Total CO2 POC VBG Base Excess VBG Lactic Acid POC Sodium 123 L Sodium POC Potassium 2.4 L* POC Chloride 78 L Chloride Carbon Dioxide POC Total CO2 31.0 H POC BUN 47 H BUN Creatinine POC Creatinine 1.5 H Glucose POC Glucose 488 H* Hemoglobin A1c POC WB Ioniz Calcium 1.04 L Direct Bilirubin 0.3 H ALT 42 H Total Protein Beta-Hydroxybutyrate 1.42 H Procalcitonin Urine Appearance Urine Glucose (UA) Ur Leukocyte Esterase Urine RBC Urine WBC Urine Mucus 06/27/22 09:28 RBC 3.36 L Hgb 11.0 L Hct 31.5 L POC Hct RDW 16.1 H Immature Gran % (Auto) 1.6 H Neut % (Auto) 80.1 H Lymph % (Auto) 11.3 L Lymph # (Auto) 1.21 L Immature Gran # 0.17 H Absolute Neutrophils 8.62 H POC VBG pH POC VBG HCO3 POC VBG Total CO2 POC VBG Base Excess VBG Lactic Acid POC Sodium Sodium POC Potassium POC Chloride Chloride Carbon Dioxide POC Total CO2 POC BUN BUN Creatinine POC Creatinine Glucose POC Glucose Hemoglobin A1c POC WB Ioniz Calcium Direct Bilirubin ALT Total Protein Beta-Hydroxybutyrate Procalcitonin Urine Appearance Urine Glucose (UA) Ur Leukocyte Esterase Urine RBC Urine WBC Urine Mucus Meds: Medications Acetaminophen (Acetaminophen 325 Mg Tablet) 650 mg PO Q6HP PRN; Protocol PRN Reason: Per Pain Protocol/Fever > 101 Albuterol/Ipratropium (Ipratropium/Albuterol 3 Ml Ampul.Neb) 3 ml NEB Q4HRT PRN PRN Reason: Wheezing Amiodarone HCl (Amiodarone Hcl 200 Mg Tablet) 200 mg PO BID [facility] Last Admin: 06/28/22 09:18 Dose: 200 mg Bisacodyl (Bisacodyl 10 Mg Supp.Rect) 10 mg [place] DAILYP PRN PRN Reason: Constipation Calcium Carbonate/Glycine (Calcium (Oyster Shell) 500 Mg Tablet) 500 mg PO DAILY [facility] Last Admin: 06/28/22 09:19 Dose: 500 mg Ceftriaxone Sodium (Ceftriaxone 1 Gm Vial) 1 gm IV Q24H [facility] Last Admin: 06/28/22 09:30 Dose: 1 gm Cyanocobalamin (Cyanocobalamin (Vitamin B-12) 500 Mcg Tablet) 2,500 mcg PO DAILY [facility] Last Admin: 06/28/22 09:17 Dose: 2,500 mcg Dextrose (Dextrose 50% 50 Ml Vial) 0 ml IV UD PRN PRN Reason: Per Sliding Scale Diagnostic Test (Pha) (Accu-Chek 1 Each Strip) 1 each FS ACHS [facility] Last Admin: 06/28/22 07:40 Dose: 1 each Docusate Sodium (Docusate Sodium 100 Mg Capsule) 100 mg PO BID [facility] Last Admin: 06/28/22 09:18 Dose: 100 mg Gabapentin (Gabapentin 100 Mg Capsule) 200 mg PO DAILY [facility] Last Admin: 06/28/22 09:19 Dose: 200 mg Gabapentin (Gabapentin 400 Mg Capsule) 400 mg PO HS [facility] Last Admin: 06/27/22 22:01 Dose: 400 mg Glucose (Dextrose 31 Gm Oral.Susp) 15 gm PO PRN PRN PRN Reason: Hypoglycemia Heparin Sodium (Porcine) (Heparin 5,000 Unit/Ml Vial) 5,000 unit SQ Q12 [facility] Last Admin: 06/28/22 09:30 Dose: 5,000 unit Insulin Glargine (Insulin Glargine, Human 1 Unit/0.01 Ml) 10 unit SQ HS [facility] Last Admin: 06/27/22 21:57 Dose: 10 units Insulin Human Lispro (Insulin Lispro 1 Unit/0.01 Ml Unit) 0 unit SQ ACHS [facility]; Protocol Lactulose (Lactulose 20 Gm/30 Ml Oral.Patricia) 10 gm PO DAILYP PRN PRN Reason: Constipation Lidocaine HCl (Lidocaine Viscous 2% 15 Ml Unit Dose Cup) 15 ml PO QIDP PRN PRN Reason: MOUTH SORES Magnesium Hydroxide (Magnesium Hydroxide 30 Ml Oral.Susp) 30 ml PO Q2D PRN PRN Reason: Constipation Metolazone (Metolazone 2.5 Mg Tablet) 2.5 mg PO DAILY [facility] Last Admin: 06/28/22 09:04 Dose: Not Given Metoprolol Tartrate (Metoprolol Tartrate 25 Mg Tablet) 25 mg PO BID [facility] Last Admin: 06/28/22 10:40 Dose: Not Given Morphine Sulfate (Morphine 2 Mg/Ml Vial) 2 mg IV Q4HP PRN PRN Reason: Pain Last Admin: 06/28/22 04:24 Dose: 2 mg Magic Mouthwash ( Viscous Lidocaine 2% /Maalox) 1:1 Solution 1 dose SSP QID [facility] Omeprazole (Omeprazole 20 Mg Capsule) 20 mg PO BIDAC [facility] Last Admin: 06/28/22 08:15 Dose: 20 mg Ondansetron HCl (Ondansetron 4 Mg/2 Ml Vial) 4 mg IV Q4HP PRN; Protocol PRN Reason: Nausea And Vomiting Oxybutynin Chloride (Oxybutynin Chloride 5 Mg Tab.Xl.24h) 10 mg PO QDAY [facility] Last Admin: 06/28/22 09:17 Dose: 10 mg Anastrozole 1 Mg (Tablet) 1 dose PO QDAY [facility] Last Admin: 06/28/22 09:04 Dose: Not Given Polyethylene Glycol (Polyethylene Glycol 3350 17 Gm Packet) 17 gm PO DAILYP PRN PRN Reason: Constipation Potassium Chloride (Potassium Chloride 10 Meq Tablet) 20 meq PO QDAY [facility] Last Admin: 06/28/22 09:19 Dose: 20 meq Prednisone (Prednisone 20 Mg Tablet) 20 mg PO BIDCC [facility] Last Admin: 06/28/22 09:18 Dose: 20 mg Senna (Sennosides 1 Tablet) 2 tab PO HSP PRN PRN Reason: Constipation Sertraline HCl (Sertraline 50 Mg Tablet) 25 mg PO DAILY [facility] Last Admin: 06/28/22 09:18 Dose: 25 mg Sodium Biphosphate/Sodium Phosphate (Fleets Adult Enema) 1 dose [place] DAILYP PRN PRN Reason: Constipation Sodium Chloride (0.9 % Sodium Chloride 10 Ml Syringe) 10 ml IV Q8 [facility] Last Admin: 06/28/22 05:35 Dose: 10 ml Vitamin D (Vitamin D3 25 Mcg Tablet) 25 mcg PO BID [facility] Last Admin: 06/28/22 09:18 Dose: 25 mcg A/P Assessment and plan (1) Acute hypokalemia: Status: Acute (2) Uncontrolled type 2 diabetes mellitus with hyperglycemia: Status: Acute (3) Atrial fibrillation: Status: Acute (4) CHF (congestive heart failure): Status: Acute (5) UTI (urinary tract infection): Status: Acute (6) Wound of skin: Status: Acute (7) Delirium: Status: Acute (8) Breast cancer: Status: Acute (9) Stage 1 acute kidney injury: Status: Acute Narrative A/P Narrative: Assessment and Plans: 1. UTI: Inpatient PCU Blood culture, no growth to date Urine culture, no growth to date Serial lactic acid 2.1-->1.4 Procalcitonin 0.17 cbc w/ auto diff in the AM to trend WBC Rocephin Physical therapy 2. Hyperglycemia with T2DM: HgA1c 10.0 Hold oral hypoglycemics Lantus 10 unit HS Low dose SSI AC HS Accu Chek AC HS Hypoglycemia protocol Diabetic diet 3. Hypokalemia: s/p IV and PO potassium replacement in the ED, to be followed by continue PO replacement CMP daily to trend serum potassium level Also check serum Mg level and replace if needed 4. Stage 1 acute kidney injury: Saline lock Hold Lasix/Metolazone Hold Losartan CMP in the morning to trend kidney functions 5. Acute delirium: CT head w/o contrast no acute changes Likely 2/2 #1-4, treat accordingly, see above 6. Atrial fibrillation: Hold Eliquis due to frequent falls Amiodarone Metoprolol tartrate 6. h/o CHF, stable: Metoprolol tartrate Hold Lasix/Metolazone Hold Losartan 7. h/o breast cancer: Anastrozole 8. Right elbow wound: Consult wound care team, recs. appreciated GI ppx: not currently indicated DVT ppx: Heparin Code status: DNR Prognosis: extremely guarded Disposition: inpatient PCU Time Spent With Patient Time: Total time spent is greater than 50% in coordination of care (as documented) at patient's floor/unit and/or counseling patient: QUALITY VTE Deep Vein Thrombosis/Pulmonary Embolism Present on Admission: No
[2022-06-28] MEDS: [UNRECOGNIZED DRUG - OTHER] SSP SCH ×3 (12:40→21:12)
[2022-06-28] MEDS: MAGIC MOUTHWASH SSP SCH ×3 (12:40→21:12)
[2022-06-28] MEDS: INSULIN GLARGINE, HUMAN 1 UNIT/0.01 ML SQ SCH (21:11)
[2022-06-28] MEDS: GABAPENTIN 400 MG CAPSULE PO SCH (21:12)
[2022-06-29] MEDS: morphine 2 MG/ML VIAL IV PRN ×3 (01:35→14:18)
[2022-06-29] MEDS: 0.9 % SODIUM CHLORIDE 10 ML SYRINGE IV SCH ×3 (06:00→20:06)
[2022-06-29 06:53] LABS: Basophils # (Auto) 0.01 K/mcL (0.00-0.30); Basophils % (Auto) 0.1 % (0.0-2.0); Eosinophils # (Auto) 0 K/mcL (0.00-0.70); Eosinophils % (Auto) 0 % (0.0-7.0); Hematocrit 27.3 % (34.1-44.9); Hemoglobin 9.2 g/dL (11.2-15.7); Lymphocytes # (Auto) 1.01 K/mcL (1.50-4.80); Lymphocytes % (Auto) 13.3 % (15.5-49.0); Mean Cell Volume 97.2 fL (80.0-100.0); Mean Corpuscular HGB Conc 33.7 g/dL (31.0-36.0); Mean Platelet Volume 11.3 fL (8.8-12.5); Monocytes # (Auto) 0.36 K/mcL (0.10-0.90); Monocytes % (Auto) 4.7 % (1.0-12.0); Neutrophils % (Auto) 80.6 % (38.0-78.0); Platelet Count 190 K/mcL (140-440); RBC 2.81 M/mcL (3.59-5.38); Red Cell Distribution Width 16.7 % (11.5-14.5); WBC 7.6 K/mcL (4.5-11.0)
[2022-06-29 08:03] LABS: ALT/SGPT 39 U/L (<40); AST/SGOT 20 U/L (<32); Albumin/Globulin Ratio 1.4 (1.0-2.3); Alkaline Phosphatase 81 U/L (39-117); Bilirubin,Total 0.6 mg/dL (0.1-1.0); Blood Urea Nitrogen 59 mg/dL (8-23); Calcium 8.1 mg/dL (8.6-10.4); Carbon Dioxide 30 mmol/L (22-30); Chloride 77 mmol/L (96-108); Globulin 2.1 gm/dL (2.2-3.7); Glomerular Filtration Rate 34; Glucose 160 mg/dL (70-105)
--- NOTE | 2022-06-29 09:10 | Internal Med Progress Note ---
SUBJECTIVE Subjective Patient information: Note initiated : 06/29/22 at 9:09 am Service Date, if different from initiated Date: [] Patient: Isi Forman a 87 y/o F admitted on 06/27/22 for decreased level of consciousness. Chief Complaint: [] Interval history: Ms. Forman is a 87 year old F history of right breast cancer status post surgery now on hormonal therapy, type 2 diabetes mellitus, atrial fibrillation on Eliquis, CHF, presenting with altered mental status and frequent falls. She was hospitalized in our facility about 2 weeks ago for CHF exacerbation and she was discharged to [facility]. It was reported that the patient have frequent falls with the last episode earlier today with seemingly altered mental status in the POST so the [facility] staff to send the patient is here to our ED for further evaluation and treatments. She had a documented comfort care only POLST form but at the bedside stated that she is now full code and he wants her to be treated with everything possible. Patient is alert and oriented x2 to person and place only and she is not sure what has happened. Labs significant for lack of leukocytosis with WBC 10.8. Blood glucose 488, corrected sodium level 132, potassium level 2.8. Bicarb of 30 and anion gap of 14. UA suggest the presence of urinary tract infections. Head CT showing right better abnormalities consistent with small vessel ischemic changes. It also shows cerebellar atrophy and no intracranial hemorrhage. No acute abnormalities seen relative to last study 6 days ago. Chest x-ray unremarkable. 06/28: Afebrile overnight. On 4L/min oxygen. Blood and urine cultures no growth to date. Fasting glucose 151. Serum potassium 3.3. Patient denies any headaches. She denies any shortness of breath. She denies any chest pain palpitations. She denies any fever chills or diaphoresis. Improving degree of general weakness. Continue potassium replacement. Continue Rocephin for UTI while waiting for culture results. Giving Lantus 10 HS, sliding scale insulin from high scale to low scale AC HS. DC metolazone due to soft blood pressure. Continue physical therapy evaluation and treatments. 06/29: Afebrile overnight. On 3L/min oxygen. Blood culture no growth to date; Urine culture gram negative bacillus. Fasting glucose 160. Serum sodium 122, potassium 3.1. WBC 7.6. Patient is c/o weakness. She is c/o confusion. She is c/o generalized body pain. Continue potassium replacement. NS@100cc/hr, serum sodium q6hr, goal of correction 8-10 in the next 24 hours. Continue Rocephin for UTI while waiting for culture results. Continue basal bolus insulin. Continue physical therapy evaluation and treatments. Constitutional Vitals: Vital Signs Temp Pulse Resp BP Pulse Ox O2 Del Method O2 Flow Rate 36.4 C 54 L 11 L 115/78 90 3 06/29/22 08:01 06/29/22 06:01 06/29/22 08:01 06/29/22 08:01 06/29/22 08:01 06/29/22 04:01 06/29/22 04:01 Period Temp Pulse Resp BP Sys/Rhodes Pulse Ox O2 Del Method O2 Flow Rate Last 24 Hr 36.3 C-37.1 C 54-63 11-25 86-151/44-95 87-100 Nasal Cannula- Oxymask 2-4 Intake and Output 06/28/22 06/29/22 06/29/22 21:59 05:59 13:59 Intake Total 265 Output Total 2 577 Balance 263 -577 Weight 65.499 kg Intake & Output: Intake & Output 06/28/22 06/29/22 06/29/22 21:59 05:59 13:59 Intake Total 265 Output Total 2 577 Balance 263 -577 Weight 65.499 kg Intake: Oral 265 Output: Urine Catheter Amount 575 # of times incontinent of urine 2 2 Other: Meal Dinner Percent of Meal Consumed 0% Feeding Ability Assist with Tray Set Up Urine Appearance Clear Urine Color Yellow Yellow Pale # Bowel Movements 0 Head Head exam: Present atraumatic and normal inspection Eye Eye exam: Present normal appearance ENT ENT exam: Present mucous membranes moist, normal exam and normal external ear exam Additional comments: Oxymask in place Neck Neck exam: Present normal inspection Respiratory Respiratory exam: Present normal respiratory exam Cardiovascular Cardiovascular exam: Present irregular rhythm GI/Abdominal GI/Abdominal exam: Present normal bowel sounds Back Exam Back exam: Present normal inspection Neurological Exam Neurological exam: Present alert and oriented X3 Skin Skin exam: Present intact and warm OBJ DATA Labs CBC & Chem 7: 06/29/22 05:18 06/29/22 05:18 Labs: Abnormal Lab Results 06/29/22 06/29/2206/28/22 05:18 05:18 05:00 RBC 2.81 L Hgb 9.2 L Hct 27.3 L POC Hct RDW 16.7 H Immature Gran % (Auto) 1.3 H Neut % (Auto) 80.6 H Lymph % (Auto) 13.3 L Lymph # (Auto) 1.01 L Immature Gran # 0.10 H Absolute Neutrophils POC VBG pH POC VBG HCO3 POC VBG Total CO2 POC VBG Base Excess VBG Lactic Acid POC Sodium Sodium 122 L 126 L POC Potassium Potassium 3.1 L POC Chloride Chloride 77 L 80 L Carbon Dioxide 34 H POC Total CO2 POC BUN BUN 59 H 63 H Creatinine 1.4 H 1.7 H POC Creatinine Glucose 160 H 128 H POC Glucose Hemoglobin A1c Calcium 8.1 L POC WB Ioniz Calcium Direct Bilirubin ALT Total Protein 5.1 L 5.6 L Albumin 3.0 L Globulin 2.1 L Beta-Hydroxybutyrate Procalcitonin Urine Appearance Urine Glucose (UA) Ur Leukocyte Esterase Urine RBC Urine WBC Urine Mucus 06/28/22 06/27/22 06/27/22 05:00 17:00 17:00 RBC 3.28 L Hgb 10.6 L Hct 32.4 L POC Hct RDW 17.1 H Immature Gran % (Auto) 1.0 H Neut % (Auto) Lymph % (Auto) 14.5 L Lymph # (Auto) 1.38 L Immature Gran # 0.10 H Absolute Neutrophils POC VBG pH POC VBG HCO3 POC VBG Total CO2 POC VBG Base Excess VBG Lactic Acid POC Sodium Sodium POC Potassium Potassium POC Chloride Chloride Carbon Dioxide POC Total CO2 POC BUN BUN Creatinine POC Creatinine Glucose POC Glucose Hemoglobin A1c 10.0 H Calcium POC WB Ioniz Calcium Direct Bilirubin ALT Total Protein Albumin Globulin Beta-Hydroxybutyrate Procalcitonin 0.17 H Urine Appearance Urine Glucose (UA) Ur Leukocyte Esterase Urine RBC Urine WBC Urine Mucus 06/27/22 06/27/22 06/27/22 11:54 10:53 09:35 RBC Hgb Hct POC Hct RDW Immature Gran % (Auto) Neut % (Auto) Lymph % (Auto) Lymph # (Auto) Immature Gran # Absolute Neutrophils POC VBG pH 7.59 H POC VBG HCO3 41.3 H* POC VBG Total CO2 43.0 H* POC VBG Base Excess 20.0 H* VBG Lactic Acid 2.1 H POC Sodium Sodium POC Potassium Potassium POC Chloride Chloride Carbon Dioxide POC Total CO2 POC BUN BUN Creatinine POC Creatinine Glucose POC Glucose Hemoglobin A1c Calcium POC WB Ioniz Calcium Direct Bilirubin 0.3 H ALT 42 H Total Protein Albumin Globulin Beta-Hydroxybutyrate Procalcitonin Urine Appearance Cloudy A Urine Glucose (UA) >=500 A Ur Leukocyte Esterase 500 A Urine RBC 18 H Urine WBC > 182 H Urine Mucus Few A 06/27/22 06/27/22 06/27/22 09:35 09:35 09:28 RBC 3.36 L Hgb 11.0 L Hct 31.5 L POC Hct 34.0 L RDW 16.1 H Immature Gran % (Auto) 1.6 H Neut % (Auto) 80.1 H Lymph % (Auto) 11.3 L Lymph # (Auto) 1.21 L Immature Gran # 0.17 H Absolute Neutrophils 8.62 H POC VBG pH POC VBG HCO3 POC VBG Total CO2 POC VBG Base Excess VBG Lactic Acid POC Sodium 123 L Sodium POC Potassium 2.4 L* Potassium POC Chloride 78 L Chloride Carbon Dioxide POC Total CO2 31.0 H POC BUN 47 H BUN Creatinine POC Creatinine 1.5 H Glucose POC Glucose 488 H* Hemoglobin A1c Calcium POC WB Ioniz Calcium 1.04 L Direct Bilirubin ALT Total Protein Albumin Globulin Beta-Hydroxybutyrate 1.42 H Procalcitonin Urine Appearance Urine Glucose (UA) Ur Leukocyte Esterase Urine RBC Urine WBC Urine Mucus Meds: Medications Acetaminophen (Acetaminophen 325 Mg Tablet) 650 mg PO Q6HP PRN; Protocol PRN Reason: Per Pain Protocol/Fever > 101 Albuterol/Ipratropium (Ipratropium/Albuterol 3 Ml Ampul.Neb) 3 ml NEB Q4HRT PRN PRN Reason: Wheezing Amiodarone HCl (Amiodarone Hcl 200 Mg Tablet) 200 mg PO BID [facility] Last Admin: 06/28/22 21:11 Dose: Not Given Bisacodyl (Bisacodyl 10 Mg Supp.Rect) 10 mg VT DAILYP PRN PRN Reason: Constipation Calcium Carbonate/Glycine (Calcium (Oyster Shell) 500 Mg Tablet) 500 mg PO DAILY [facility] Last Admin: 06/28/22 09:19 Dose: 500 mg Ceftriaxone Sodium (Ceftriaxone 1 Gm Vial) 1 gm IV Q24H [facility] Last Admin: 06/28/22 09:30 Dose: 1 gm Cyanocobalamin (Cyanocobalamin (Vitamin B-12) 500 Mcg Tablet) 2,500 mcg PO DAILY [facility] Last Admin: 06/28/22 09:17 Dose: 2,500 mcg Dextrose (Dextrose 50% 50 Ml Vial) 0 ml IV UD PRN PRN Reason: Per Sliding Scale Diagnostic Test (Pha) (Accu-Chek 1 Each Strip) 1 each FS ACHS [facility] Last Admin: 06/28/22 21:10 Dose: 1 each Docusate Sodium (Docusate Sodium 100 Mg Capsule) 100 mg PO BID [facility] Last Admin: 06/28/22 21:12 Dose: 100 mg Gabapentin (Gabapentin 100 Mg Capsule) 200 mg PO DAILY [facility] Last Admin: 06/28/22 09:19 Dose: 200 mg Gabapentin (Gabapentin 400 Mg Capsule) 400 mg PO HS [facility] Last Admin: 06/28/22 21:12 Dose: 400 mg Glucose (Dextrose 31 Gm Oral.Susp) 15 gm PO PRN PRN PRN Reason: Hypoglycemia Heparin Sodium (Porcine) (Heparin 5,000 Unit/Ml Vial) 5,000 unit SQ Q12 [facility] Last Admin: 06/28/22 21:12 Dose: 5,000 unit Sodium Chloride (Sodium Chloride 0.9%) 1,000 mls @ 100 mls/hr IV .Q10H [facility] Insulin Glargine (Insulin Glargine, Human 1 Unit/0.01 Ml) 10 unit SQ [facility] Last Admin: 06/28/22 21:11 Dose: 10 units Insulin Human Lispro (Insulin Lispro 1 Unit/0.01 Ml Unit) 0 unit SQ [facility]; Protocol Last Admin: 06/28/22 21:11 Dose: 3 units Lactulose (Lactulose 20 Gm/30 Ml Oral.Patricia) 10 gm PO DAILYP PRN PRN Reason: Constipation Magnesium Hydroxide (Magnesium Hydroxide 30 Ml Oral.Susp) 30 ml PO Q2D PRN PRN Reason: Constipation Metolazone (Metolazone 2.5 Mg Tablet) 2.5 mg PO DAILY [facility] Last Admin: 06/28/22 09:04 Dose: Not Given Metoprolol Tartrate (Metoprolol Tartrate 25 Mg Tablet) 25 mg PO BID [facility] Last Admin: 06/28/22 21:12 Dose: Not Given Morphine Sulfate (Morphine 2 Mg/Ml Vial) 2 mg IV Q4HP PRN PRN Reason: Pain Last Admin: 06/29/22 06:47 Dose: 2 mg Magic Mouthwash ( Viscous Lidocaine 2% /Maalox) 1:1 Solution 0 dose SSP QID [facility] Last Admin: 06/28/22 21:12 Dose: 1 dose Omeprazole (Omeprazole 20 Mg Capsule) 20 mg PO BIDAC [facility] Last Admin: 06/28/22 17:21 Dose: 20 mg Ondansetron HCl (Ondansetron 4 Mg/2 Ml Vial) 4 mg IV Q4HP PRN; Protocol PRN Reason: Nausea And Vomiting Oxybutynin Chloride (Oxybutynin Chloride 5 Mg Tab.Xl.24h) 10 mg PO QDAY [facility] Last Admin: 06/28/22 09:17 Dose: 10 mg Anastrozole 1 Mg (Tablet) 1 dose PO QDAY [facility] Last Admin: 06/28/22 09:04 Dose: Not Given Polyethylene Glycol (Polyethylene Glycol 3350 17 Gm Packet) 17 gm PO DAILYP PRN PRN Reason: Constipation Potassium Chloride (Potassium Chloride 10 Meq Tablet) 20 meq PO QDAY [facility] Last Admin: 06/28/22 09:19 Dose: 20 meq Prednisone (Prednisone 20 Mg Tablet) 20 mg PO BIDCC [facility] Last Admin: 06/28/22 17:21 Dose: 20 mg Senna (Sennosides 1 Tablet) 2 tab PO HSP PRN PRN Reason: Constipation Sertraline HCl (Sertraline 50 Mg Tablet) 25 mg PO DAILY [facility] Last Admin: 06/28/22 09:18 Dose: 25 mg Sodium Biphosphate/Sodium Phosphate (Fleets Adult Enema) 1 dose VT DAILYP PRN PRN Reason: Constipation Sodium Chloride (0.9 % Sodium Chloride 10 Ml Syringe) 10 ml IV Q8 [facility] Last Admin: 06/29/22 06:00 Dose: 10 ml Vitamin D (Vitamin D3 25 Mcg Tablet) 25 mcg PO BID [facility] Last Admin: 06/28/22 21:12 Dose: 25 mcg A/P Assessment and plan (1) Acute hypokalemia: Status: Acute (2) Uncontrolled type 2 diabetes mellitus with hyperglycemia: Status: Acute (3) Atrial fibrillation: Status: Acute (4) CHF (congestive heart failure): Status: Acute (5) UTI (urinary tract infection): Status: Acute (6) Wound of skin: Status: Acute (7) Delirium: Status: Acute (8) Breast cancer: Status: Acute (9) Stage 1 acute kidney injury: Status: Acute (10) Hyponatremia: Status: Acute Narrative A/P Narrative: Assessment and Plans: 1. UTI: Inpatient PCU Blood culture, no growth to date Urine culture, gram negative bacillus Serial lactic acid 2.1-->1.4 Procalcitonin 0.17 cbc w/ auto diff in the AM to trend WBC Rocephin Physical therapy 2. Hyperglycemia with T2DM: HgA1c 10.0 Hold oral hypoglycemics Lantus 10 unit HS Low dose SSI AC HS Accu Chek AC HS Hypoglycemia protocol Diabetic diet 3. Hypokalemia: s/p IV and PO potassium replacement in the ED, to be followed by continue PO replacement CMP daily to trend serum potassium level Also check serum Mg level and replace if needed 4. Stage 1 acute kidney injury: NS@100cc/hr Hold Lasix/Metolazone Hold Losartan CMP in the morning to trend kidney functions 5. Acute delirium: CT head w/o contrast no acute changes Likely 2/2 #1-4, treat accordingly, see above 6. Atrial fibrillation: Hold Eliquis due to frequent falls Amiodarone Metoprolol tartrate 6. h/o CHF, stable: Metoprolol tartrate Hold Lasix/Metolazone Hold Losartan 7. h/o breast cancer: Anastrozole 8. Right elbow wound: Consult wound care team, recs. appreciated 9. Hyponatremia: NS@100cc/hr Serum sodium q6hr, goal of correction 8-10 in the next 24 hours GI ppx: not currently indicated DVT ppx: Heparin Code status: DNR Prognosis: extremely guarded Disposition: inpatient PCU Time Spent With Patient Time: Total time spent is greater than 50% in coordination of care (as documented) at patient's floor/unit and/or counseling patient: QUALITY VTE Deep Vein Thrombosis/Pulmonary Embolism Present on Admission: No
[2022-06-29] MEDS: INSULIN LISPRO 1 UNIT/0.01 ML UNIT SQ SCH ×4 (09:13→20:05)
[2022-06-29] MEDS: METOLAZONE 2.5 MG TABLET PO SCH ×2 (09:14→10:04)
[2022-06-29] MEDS: GABAPENTIN 100 MG CAPSULE PO SCH (09:14)
[2022-06-29] MEDS: CALCIUM (OYSTER SHELL) 500 MG TABLET PO SCH (09:14)
[2022-06-29] MEDS: SERTRALINE 50 MG TABLET PO SCH (09:14)
[2022-06-29] MEDS: predniSONE 20 MG TABLET PO SCH ×2 (09:14→17:36)
[2022-06-29] MEDS: OMEPRAZOLE 20 MG CAPSULE PO SCH ×2 (09:14→17:36)
[2022-06-29] MEDS: VITAMIN D3 25 MCG TABLET PO SCH ×2 (09:15→20:04)
[2022-06-29] MEDS: DOCUSATE SODIUM 100 MG CAPSULE PO SCH ×2 (09:15→20:04)
[2022-06-29] MEDS: POTASSIUM CHLORIDE 10 MEQ TABLET PO SCH (09:15)
[2022-06-29] MEDS: CYANOCOBALAMIN (VITAMIN B-12) 500 MCG TABLET PO SCH (09:18)
[2022-06-29] MEDS: HEPARIN 5,000 UNIT/ML VIAL SQ SCH ×2 (09:19→20:04)
[2022-06-29] MEDS: 0.9 % SODIUM CHLORIDE 1,000 ML IV SCH ×2 (09:23→20:05)
[2022-06-29] MEDS: AMIODARONE HCL 200 MG TABLET PO SCH ×2 (09:24→20:06)
[2022-06-29] MEDS: METOPROLOL TARTRATE 25 MG TABLET PO SCH ×2 (09:24→20:06)
[2022-06-29] MEDS: OXYBUTYNIN CHLORIDE 5 MG TAB.XL.24H PO SCH (10:01)
[2022-06-29] MEDS: [UNRECOGNIZED DRUG - OTHER] SSP SCH ×4 (10:03→20:05)
[2022-06-29] MEDS: MAGIC MOUTHWASH SSP SCH ×4 (10:03→20:05)
[2022-06-29] MEDS: cefTRIAXone 1 GM VIAL IV SCH (10:03)
[2022-06-29] MEDS ORDERED: POTASSIUM CHLORIDE 20 MEQ TABLET PO SCH (17:30)
[2022-06-29] MEDS: ACETAMINOPHEN 325 MG TABLET PO PRN (20:04)
[2022-06-29] MEDS: GABAPENTIN 400 MG CAPSULE PO SCH (20:05)
[2022-06-29] MEDS: INSULIN GLARGINE, HUMAN 1 UNIT/0.01 ML SQ SCH (20:05)
[2022-06-29] MEDS: CEFEPIME 1 GM VIAL IV SCH ×2 (20:45→21:24)
[2022-06-30] MEDS: 0.9 % SODIUM CHLORIDE 10 ML SYRINGE IV SCH ×3 (05:30→20:06)
[2022-06-30 06:20] LABS: Basophils # (Auto) 0.01 K/mcL (0.00-0.30); Basophils % (Auto) 0.1 % (0.0-2.0); Eosinophils # (Auto) 0 K/mcL (0.00-0.70); Eosinophils % (Auto) 0 % (0.0-7.0); Hematocrit 28.9 % (34.1-44.9); Hemoglobin 9.3 g/dL (11.2-15.7); Lymphocytes # (Auto) 1.27 K/mcL (1.50-4.80); Lymphocytes % (Auto) 16.4 % (15.5-49.0); Mean Cell Volume 100.3 fL (80.0-100.0); Mean Corpuscular HGB Conc 32.2 g/dL (31.0-36.0); Mean Platelet Volume 11.4 fL (8.8-12.5); Monocytes # (Auto) 0.45 K/mcL (0.10-0.90); Monocytes % (Auto) 5.8 % (1.0-12.0); Neutrophils % (Auto) 74.9 % (38.0-78.0); Platelet Count 192 K/mcL (140-440); RBC 2.88 M/mcL (3.59-5.38); Red Cell Distribution Width 16.7 % (11.5-14.5); WBC 7.8 K/mcL (4.5-11.0)
[2022-06-30] MEDS: 0.9 % SODIUM CHLORIDE 1,000 ML IV SCH ×2 (06:21→16:26)
[2022-06-30 06:40] LABS: ALT/SGPT 58 U/L (<40); AST/SGOT 38 U/L (<32); Albumin 3.1 gm/dL (3.2-5.2); Albumin/Globulin Ratio 1.6 (1.0-2.3); Alkaline Phosphatase 74 U/L (39-117); Bilirubin,Total 0.5 mg/dL (0.1-1.0); Blood Urea Nitrogen 57 mg/dL (8-23); Calcium 8.6 mg/dL (8.6-10.4); Carbon Dioxide 29 mmol/L (22-30); Chloride 87 mmol/L (96-108); Globulin 1.9 gm/dL (2.2-3.7); Glomerular Filtration Rate 58; Glucose 198 mg/dL (70-105); Phosphorous 2.9 mg/dL (2.5-4.5)
[2022-06-30] MEDS: ACETAMINOPHEN 325 MG TABLET PO PRN ×2 (06:51→17:17)
[2022-06-30] MEDS: morphine 2 MG/ML VIAL IV PRN ×3 (07:10→20:21)
[2022-06-30] MEDS: OMEPRAZOLE 20 MG CAPSULE PO SCH ×2 (08:24→17:00)
[2022-06-30] MEDS: CALCIUM (OYSTER SHELL) 500 MG TABLET PO SCH (08:24)
[2022-06-30] MEDS: CYANOCOBALAMIN (VITAMIN B-12) 500 MCG TABLET PO SCH (08:24)
[2022-06-30] MEDS: VITAMIN D3 25 MCG TABLET PO SCH ×2 (08:24→20:05)
[2022-06-30] MEDS: MAGIC MOUTHWASH SSP SCH ×4 (08:24→20:07)
[2022-06-30] MEDS: GABAPENTIN 100 MG CAPSULE PO SCH (08:24)
[2022-06-30] MEDS: DOCUSATE SODIUM 100 MG CAPSULE PO SCH ×2 (08:24→20:05)
[2022-06-30] MEDS: [UNRECOGNIZED DRUG - OTHER] SSP SCH ×4 (08:24→20:07)
[2022-06-30] MEDS: HEPARIN 5,000 UNIT/ML VIAL SQ SCH ×2 (08:25→20:06)
[2022-06-30] MEDS: POTASSIUM CHLORIDE 10 MEQ TABLET PO SCH (08:25)
[2022-06-30] MEDS: SERTRALINE 50 MG TABLET PO SCH (08:25)
[2022-06-30] MEDS: predniSONE 20 MG TABLET PO SCH ×2 (08:25→17:00)
[2022-06-30] MEDS: INSULIN LISPRO 1 UNIT/0.01 ML UNIT SQ SCH ×4 (08:25→20:05)
[2022-06-30] MEDS: CEFEPIME 1 GM VIAL IV SCH ×2 (08:47→20:18)
[2022-06-30] MEDS: OXYBUTYNIN CHLORIDE 5 MG TAB.XL.24H PO SCH (08:47)
--- NOTE | 2022-06-30 09:55 | Internal Med Progress Note ---
SUBJECTIVE Subjective Patient information: Note initiated : 06/30/22 at 9:49 am Service Date, if different from initiated Date: [] Patient: Isi Forman a 87 y/o F admitted on 06/27/22 for decreased level of consciousness. Chief Complaint: [] Interval history: Ms. Forman is a 87 year old F history of right breast cancer status post surgery now on hormonal therapy, type 2 diabetes mellitus, atrial fibrillation on Eliquis, CHF, presenting with altered mental status and frequent falls. She was hospitalized in our facility about 2 weeks ago for CHF exacerbation and she was discharged to [facility] [place]. It was reported that the patient have frequent falls with the last episode earlier today with seemingly altered mental status in the POST so the [facility] staff to send the patient is here to our ED for further evaluation and treatments. She had a documented comfort care only POLST form but at the bedside stated that she is now full code and he wants her to be treated with everything possible. Patient is alert and oriented x2 to person and place only and she is not sure what has happened. Labs significant for lack of leukocytosis with WBC 10.8. Blood glucose 488, corrected sodium level 132, potassium level 2.8. Bicarb of 30 and anion gap of 14. UA suggest the presence of urinary tract infections. Head CT showing right better abnormalities consistent with small vessel ischemic changes. It also shows cerebellar atrophy and no intracranial hemorrhage. No acute abnormalities seen relative to last study 6 days ago. Chest x-ray unremarkable. 06/28: Afebrile overnight. On 4L/min oxygen. Blood and urine cultures no growth to date. Fasting glucose 151. Serum potassium 3.3. Patient denies any headaches. She denies any shortness of breath. She denies any chest pain palpitations. She denies any fever chills or diaphoresis. Improving degree of general weakness. Continue potassium replacement. Continue Rocephin for UTI while waiting for culture results. Giving Lantus 10 HS, sliding scale insulin from high scale to low scale AC HS. DC metolazone due to soft blood pressure. Continue physical therapy evaluation and treatments. 06/29: Afebrile overnight. On 3L/min oxygen. Blood culture no growth to date; Urine culture gram negative bacillus. Fasting glucose 160. Serum sodium 122, potassium 3.1. WBC 7.6. Patient is c/o weakness. She is c/o confusion. She is c/o generalized body pain. Continue potassium replacement. NS@100cc/hr, serum sodium q6hr, goal of correction 8-10 in the next 24 hours. Continue Rocephin for UTI while waiting for culture results. Continue basal bolus insulin. Continue physical therapy evaluation and treatments. 06/30: Afebrile overnight. On 2L/min oxygen. Blood culture no growth to date; urine culture pseudomonas aeruginosa. Fasting glucose 200. Serum sodium 126. She is c/o dysuria. Denies shortness of breath. Denies fever, chills, or sweating. NS@100cc/hr, serum sodium q6hr, goal of correction 8-10 in the next 24 hours. Switch antibiotics from Rocephin to Cefepime. Constitutional Vitals: Vital Signs Temp Pulse Resp BP Pulse Ox O2 Del Method O2 Flow Rate 36.2 C 63 18 131/51 94 2 06/30/22 08:39 06/30/22 08:39 06/30/22 08:39 06/30/22 08:39 06/30/22 08:39 06/30/22 08:39 06/30/22 08:39 Period Temp Pulse Resp BP Sys/Rhodes Pulse Ox O2 Del Method O2 Flow Rate Last 24 Hr 35.7 C-36.6 C 54-63 10-18 98-151/44-83 90-99 Nasal Cannula- Room Air, Nasal Cannula, Oxymask 2-2 Intake and Output 06/29/22 06/30/22 06/30/22 21:59 05:59 13:59 Intake Total 1020 0 1000 Output Total 551 400 0 Balance 469 -400 1000 Weight 67.404 kg Intake & Output: Intake & Output 06/29/22 06/30/22 06/30/22 21:59 05:59 13:59 Intake Total 1020 0 1000 Output Total 551 400 0 Balance 469 -400 1000 Weight 67.404 kg Intake: IV 1000 1000 Sodium Chloride 0.9% 1,000 ml @ 1000 1000 100 mls/hr IV .Q10H FOUZIA Rx#: [id number] Oral 20 0 0 Output: Void Amount 550 400 0 # of times incontinent of urine 1 Other: Meal Dinner Percent of Meal Consumed 50% Feeding Ability Total Assistance Urine Appearance Clear Clear Urine Color Dark Yellow Dark Yellow Urine Odor Normal # Voids 1 Head Head exam: Present atraumatic and normal inspection Eye Eye exam: Present normal appearance ENT ENT exam: Present mucous membranes moist, normal exam and normal external ear exam Additional comments: Nasal cannula in place Neck Neck exam: Present normal inspection Respiratory Respiratory exam: Present normal respiratory exam Cardiovascular Cardiovascular exam: Present irregular rhythm GI/Abdominal GI/Abdominal exam: Present normal bowel sounds Extremities Exam Extremities exam: Present pedal edema Back Exam Back exam: Present normal inspection Neurological Exam Neurological exam: Present alert and oriented X3 Skin Skin exam: Present intact and warm OBJ DATA Labs CBC & Chem 7: 06/30/22 05:00 06/30/22 05:00 Labs: Abnormal Lab Results 06/30/22 06/30/22 06/30/22 05:00 05:00 00:14 RBC 2.88 L Hgb 9.3 L Hct 28.9 L POC Hct MCV 100.3 H RDW 16.7 H Immature Gran % (Auto) 2.8 H Neut % (Auto) Lymph % (Auto) Lymph # (Auto) 1.27 L Immature Gran # 0.22 H Absolute Neutrophils POC VBG pH POC VBG HCO3 POC VBG Total CO2 POC VBG Base Excess VBG Lactic Acid POC Sodium Sodium 126 L 123 L POC Potassium Potassium POC Chloride Chloride 87 L Carbon Dioxide POC Total CO2 POC BUN BUN 57 H Creatinine POC Creatinine Glucose 198 H POC Glucose Hemoglobin A1c Calcium POC WB Ioniz Calcium Direct Bilirubin AST 38 H ALT 58 H Total Protein 5.0 L Albumin 3.1 L Globulin 1.9 L Beta-Hydroxybutyrate Procalcitonin Urine Appearance Urine Glucose (UA) Ur Leukocyte Esterase Urine RBC Urine WBC Urine Mucus 06/29/22 06/29/22 06/29/22 17:59 12:38 05:18 RBC Hgb Hct POC Hct MCV RDW Immature Gran % (Auto) Neut % (Auto) Lymph % (Auto) Lymph # (Auto) Immature Gran # Absolute Neutrophils POC VBG pH POC VBG HCO3 POC VBG Total CO2 POC VBG Base Excess VBG Lactic Acid POC Sodium Sodium 119 L* 121 L 122 L POC Potassium Potassium 3.1 L POC Chloride Chloride 77 L Carbon Dioxide POC Total CO2 POC BUN BUN 59 H Creatinine 1.4 H POC Creatinine Glucose 160 H POC Glucose Hemoglobin A1c Calcium 8.1 L POC WB Ioniz Calcium Direct Bilirubin AST ALT Total Protein 5.1 L Albumin 3.0 L Globulin 2.1 L Beta-Hydroxybutyrate Procalcitonin Urine Appearance Urine Glucose (UA) Ur Leukocyte Esterase Urine RBC Urine WBC Urine Mucus 06/29/22 06/28/22 06/28/22 05:18 05:00 05:00 RBC 2.81 L 3.28 L Hgb 9.2 L 10.6 L Hct 27.3 L 32.4 L POC Hct MCV RDW 16.7 H 17.1 H Immature Gran % (Auto) 1.3 H 1.0 H Neut % (Auto) 80.6 H Lymph % (Auto) 13.3 L 14.5 L Lymph # (Auto) 1.01 L 1.38 L Immature Gran # 0.10 H 0.10 H Absolute Neutrophils POC VBG pH POC VBG HCO3 POC VBG Total CO2 POC VBG Base Excess VBG Lactic Acid POC Sodium Sodium 126 L POC Potassium Potassium POC Chloride Chloride 80 L Carbon Dioxide 34 H POC Total CO2 POC BUN BUN 63 H Creatinine 1.7 H POC Creatinine Glucose 128 H POC Glucose Hemoglobin A1c Calcium POC WB Ioniz Calcium Direct Bilirubin AST ALT Total Protein 5.6 L Albumin Globulin Beta-Hydroxybutyrate Procalcitonin Urine Appearance Urine Glucose (UA) Ur Leukocyte Esterase Urine RBC Urine WBC Urine Mucus 06/27/22 06/27/22 06/27/22 17:00 17:00 11:54 RBC Hgb Hct POC Hct MCV RDW Immature Gran % (Auto) Neut % (Auto) Lymph % (Auto) Lymph # (Auto) Immature Gran # Absolute Neutrophils POC VBG pH 7.59 H POC VBG HCO3 41.3 H* POC VBG Total CO2 43.0 H* POC VBG Base Excess 20.0 H* VBG Lactic Acid 2.1 H POC Sodium Sodium POC Potassium Potassium POC Chloride Chloride Carbon Dioxide POC Total CO2 POC BUN BUN Creatinine POC Creatinine Glucose POC Glucose Hemoglobin A1c 10.0 H Calcium POC WB Ioniz Calcium Direct Bilirubin AST ALT Total Protein Albumin Globulin Beta-Hydroxybutyrate Procalcitonin 0.17 H Urine Appearance Urine Glucose (UA) Ur Leukocyte Esterase Urine RBC Urine WBC Urine Mucus 06/27/22 06/27/22 06/27/22 10:53 09:35 09:35 RBC Hgb Hct POC Hct MCV RDW Immature Gran % (Auto) Neut % (Auto) Lymph % (Auto) Lymph # (Auto) Immature Gran # Absolute Neutrophils POC VBG pH POC VBG HCO3 POC VBG Total CO2 POC VBG Base Excess VBG Lactic Acid POC Sodium Sodium POC Potassium Potassium POC Chloride Chloride Carbon Dioxide POC Total CO2 POC BUN BUN Creatinine POC Creatinine Glucose POC Glucose Hemoglobin A1c Calcium POC WB Ioniz Calcium Direct Bilirubin 0.3 H AST ALT 42 H Total Protein Albumin Globulin Beta-Hydroxybutyrate 1.42 H Procalcitonin Urine Appearance Cloudy A Urine Glucose (UA) >=500 A Ur Leukocyte Esterase 500 A Urine RBC 18 H Urine WBC > 182 H Urine Mucus Few A 06/27/22 06/27/22 09:35 09:28 RBC 3.36 L Hgb 11.0 L Hct 31.5 L POC Hct 34.0 L MCV RDW 16.1 H Immature Gran % (Auto) 1.6 H Neut % (Auto) 80.1 H Lymph % (Auto) 11.3 L Lymph # (Auto) 1.21 L Immature Gran # 0.17 H Absolute Neutrophils 8.62 H POC VBG pH POC VBG HCO3 POC VBG Total CO2 POC VBG Base Excess VBG Lactic Acid POC Sodium 123 L Sodium POC Potassium 2.4 L* Potassium POC Chloride 78 L Chloride Carbon Dioxide POC Total CO2 31.0 H POC BUN 47 H BUN Creatinine POC Creatinine 1.5 H Glucose POC Glucose 488 H* Hemoglobin A1c Calcium POC WB Ioniz Calcium 1.04 L Direct Bilirubin AST ALT Total Protein Albumin Globulin Beta-Hydroxybutyrate Procalcitonin Urine Appearance Urine Glucose (UA) Ur Leukocyte Esterase Urine RBC Urine WBC Urine Mucus Meds: Medications Acetaminophen (Acetaminophen 325 Mg Tablet) 650 mg PO Q6HP PRN; Protocol PRN Reason: Per Pain Protocol/Fever > 101 Last Admin: 06/30/22 06:51 Dose: 650 mg Albuterol/Ipratropium (Ipratropium/Albuterol 3 Ml Ampul.Neb) 3 ml NEB Q4HRT PRN PRN Reason: Wheezing Amiodarone HCl (Amiodarone Hcl 200 Mg Tablet) 200 mg PO BID [facility] Last Admin: 06/29/22 20:06 Dose: Not Given Bisacodyl (Bisacodyl 10 Mg Supp.Rect) 10 mg [place] DAILYP PRN PRN Reason: Constipation Calcium Carbonate/Glycine (Calcium (Oyster Shell) 500 Mg Tablet) 500 mg PO DAILY [facility] Last Admin: 06/30/22 08:24 Dose: 500 mg Cefepime HCl (Cefepime 1 Gm Vial) 1 gm IV Q12H [facility]; Protocol Last Admin: 06/30/22 08:47 Dose: 1 gm Cyanocobalamin (Cyanocobalamin (Vitamin B-12) 500 Mcg Tablet) 2,500 mcg PO DAILY [facility] Last Admin: 06/30/22 08:24 Dose: 2,500 mcg Dextrose (Dextrose 50% 50 Ml Vial) 0 ml IV UD PRN PRN Reason: Per Sliding Scale Diagnostic Test (Pha) (Accu-Chek 1 Each Strip) 1 each FS ACHS [facility] Last Admin: 06/30/22 08:25 Dose: 1 each Docusate Sodium (Docusate Sodium 100 Mg Capsule) 100 mg PO BID [facility] Last Admin: 06/30/22 08:24 Dose: 100 mg Gabapentin (Gabapentin 100 Mg Capsule) 200 mg PO DAILY [facility] Last Admin: 06/30/22 08:24 Dose: 200 mg Gabapentin (Gabapentin 400 Mg Capsule) 400 mg PO HS [facility] Last Admin: 06/29/22 20:05 Dose: 400 mg Glucose (Dextrose 31 Gm Oral.Susp) 15 gm PO PRN PRN PRN Reason: Hypoglycemia Heparin Sodium (Porcine) (Heparin 5,000 Unit/Ml Vial) 5,000 unit SQ Q12 [facility] Last Admin: 06/30/22 08:25 Dose: 5,000 unit Sodium Chloride (Sodium Chloride 0.9%) 1,000 mls @ 100 mls/hr IV .Q10H [facility] Last Admin: 06/30/22 06:21 Dose: 100 mls/hr Insulin Glargine (Insulin Glargine, Human 1 Unit/0.01 Ml) 10 unit SQ [facility] Last Admin: 06/29/22 20:05 Dose: 10 units Insulin Human Lispro (Insulin Lispro 1 Unit/0.01 Ml Unit) 0 unit SQ [facility]; Protocol Last Admin: 06/30/22 08:25 Dose: 2 units Lactulose (Lactulose 20 Gm/30 Ml Oral.Patricia) 10 gm PO DAILYP PRN PRN Reason: Constipation Magnesium Hydroxide (Magnesium Hydroxide 30 Ml Oral.Susp) 30 ml PO Q2D PRN PRN Reason: Constipation Metolazone (Metolazone 2.5 Mg Tablet) 2.5 mg PO DAILY [facility] Last Admin: 06/29/22 10:04 Dose: Not Given Metoprolol Tartrate (Metoprolol Tartrate 25 Mg Tablet) 25 mg PO BID [facility] Last Admin: 06/29/22 20:06 Dose: Not Given Morphine Sulfate (Morphine 2 Mg/Ml Vial) 2 mg IV Q4HP PRN PRN Reason: Pain Last Admin: 06/30/22 07:10 Dose: 2 mg Magic Mouthwash ( Viscous Lidocaine 2% /Maalox) 1:1 Solution 0 dose SSP QID [facility] Last Admin: 06/30/22 08:24 Dose: 1 dose Omeprazole (Omeprazole 20 Mg Capsule) 20 mg PO BIDAC [facility] Last Admin: 06/30/22 08:24 Dose: 20 mg Ondansetron HCl (Ondansetron 4 Mg/2 Ml Vial) 4 mg IV Q4HP PRN; Protocol PRN Reason: Nausea And Vomiting Oxybutynin Chloride (Oxybutynin Chloride 5 Mg Tab.Xl.24h) 10 mg PO QDAY [facility] Last Admin: 06/30/22 08:47 Dose: 10 mg Anastrozole 1 Mg (Tablet) 1 dose PO QDAY [facility] Last Admin: 06/29/22 09:19 Dose: Not Given Polyethylene Glycol (Polyethylene Glycol 3350 17 Gm Packet) 17 gm PO DAILYP PRN PRN Reason: Constipation Potassium Chloride (Potassium Chloride 10 Meq Tablet) 20 meq PO QDAY [facility] Last Admin: 06/30/22 08:25 Dose: 20 meq Prednisone (Prednisone 20 Mg Tablet) 20 mg PO BIDCC [facility] Last Admin: 06/30/22 08:25 Dose: 20 mg Senna (Sennosides 1 Tablet) 2 tab PO HSP PRN PRN Reason: Constipation Sertraline HCl (Sertraline 50 Mg Tablet) 25 mg PO DAILY [facility] Last Admin: 06/30/22 08:25 Dose: 25 mg Sodium Biphosphate/Sodium Phosphate (Fleets Adult Enema) 1 dose [place] DAILYP PRN PRN Reason: Constipation Sodium Chloride (0.9 % Sodium Chloride 10 Ml Syringe) 10 ml IV Q8 [facility] Last Admin: 06/30/22 05:30 Dose: Not Given Vitamin D (Vitamin D3 25 Mcg Tablet) 25 mcg PO BID [facility] Last Admin: 06/30/22 08:24 Dose: 25 mcg A/P Assessment and plan (1) Acute hypokalemia: Status: Acute (2) Uncontrolled type 2 diabetes mellitus with hyperglycemia: Status: Acute (3) Atrial fibrillation: Status: Acute (4) CHF (congestive heart failure): Status: Acute (5) UTI (urinary tract infection): Status: Acute (6) Wound of skin: Status: Acute (7) Delirium: Status: Acute (8) Breast cancer: Status: Acute (9) Stage 1 acute kidney injury: Status: Acute (10) Hyponatremia: Status: Acute Narrative A/P Narrative: Assessment and Plans: 1. UTI: Inpatient PCU Blood culture, no growth to date Urine culture, pseudomonas aeruginosa Serial lactic acid 2.1-->1.4 Procalcitonin 0.17 cbc w/ auto diff in the AM to trend WBC Rocephin-->Cefepime Physical therapy 2. Hyperglycemia with T2DM: HgA1c 10.0 Hold oral hypoglycemics Lantus 10-->13 unit HS for better glycemic coverage Low dose SSI AC HS Accu Chek AC HS Hypoglycemia protocol Diabetic diet 3. Hypokalemia: s/p IV and PO potassium replacement in the ED, to be followed by continue PO replacement CMP daily to trend serum potassium level Also check serum Mg level and replace if needed 4. Stage 1 acute kidney injury: NS@100cc/hr Hold Lasix/Metolazone Hold Losartan CMP in the morning to trend kidney functions 5. Acute delirium: CT head w/o contrast no acute changes Likely 2/2 #1-4, treat accordingly, see above 6. Atrial fibrillation: Hold Eliquis due to frequent falls Amiodarone Metoprolol tartrate-->hold this morning 6. h/o CHF, stable: Metoprolol tartrate Hold Lasix/Metolazone Hold Losartan 7. h/o breast cancer: Anastrozole 8. Right elbow wound: Consult wound care team, recs. appreciated 9. Hyponatremia: NS@100cc/hr Serum sodium q6hr, goal of correction 8-10 in the next 24 hours GI ppx: not currently indicated DVT ppx: Heparin Code status: DNR Prognosis: guarded Disposition: inpatient PCU Time Spent With Patient Time: Total time spent is greater than 50% in coordination of care (as documented) at patient's floor/unit and/or counseling patient: QUALITY VTE Deep Vein Thrombosis/Pulmonary Embolism Present on Admission: No
[2022-06-30] MEDS: METOPROLOL TARTRATE 25 MG TABLET PO SCH (10:37)
[2022-06-30] MEDS: METOLAZONE 2.5 MG TABLET PO SCH (10:37)
[2022-06-30] MEDS: AMIODARONE HCL 200 MG TABLET PO SCH (11:30)
--- NOTE | 2022-06-30 12:49 | Internal Med Progress Note ---
SUBJECTIVE Subjective Patient information: Note initiated : 06/30/22 at 12:44 pm Service Date, if different from initiated Date: [] Patient: Isi Forman 87 y/o F admitted on 06/27/22 for decreased level of consciousness. Chief Complaint: [] Interval history: 07/01 Afebrile overnight, RAMIRO has resolved. Changed amiodarone from 200 mg p.o. twice daily to 200 mg daily. Restarted Lasix at 40 mg daily, discontinued metolazone. Sodium level 127, ordered serum osmolality, urine osmolality, urine sodium. Started fluid restriction. Valiente catheter placed overnight for urinary retention, will remove today and follow with bladder scans. Discussed patient's prednisone dose which is reportedly for optic neuritis, will obtain a ESR and CRP level to send to the patient's boiler repairman. Per family's report, the patient has been on high-dose prednisone since March 2022. It does not sound like the patient is on pneumocystis prophylaxis instead of being on high-dose steroids for several months so we will start Bactrim 3 times a week. Optimally, the patient can be tapered off prednisone in the coming weeks. Remove ivan from head wound, ivan were placed about 10 days ago. Physical exam Head: Atraumatic, normal inspection. Eyes: normal appearance, no scleral icterus. Neck: full ROM Respiratory: no respiratory distress. Cardiovascular: normal rate and rhythm, S1, S2. GI/Abdominal: soft, nontender, no guarding. Extremities: full range of motion, nontender. Neurological: CN II-XII intact, intact motor, intact sensation. Psychiatric: normal mood. Skin: Multiple wounds to right upper extremity covered with bandages, head wound with ivan covered with bandage. Constitutional Vitals: Vital Signs Temp Pulse Resp BP Pulse Ox O2 Del Method O2 Flow Rate 97.8 F 58 L 14 105/55 95 2 06/30/22 12:01 06/30/22 12:01 06/30/22 12:01 06/30/22 12:01 06/30/22 12:01 06/30/22 12:01 06/30/22 12:01 Period Temp Pulse Resp BP Sys/Rhodes Pulse Ox O2 Del Method O2 Flow Rate Last 24 Hr 96.3 F-97.9 F 54-65 10-18 105-151/46-83 90-99 Nasal Cannula- Room Air, Nasal Cannula, Oxymask 2-2 Intake and Output 06/29/22 06/30/22 06/30/22 21:59 05:59 13:59 Intake Total 1020 0 1700 Output Total 551 400 0 Balance 469 -400 1700 Weight 67.404 kg Intake & Output: Intake & Output 06/29/22 06/30/22 06/30/22 21:59 05:59 13:59 Intake Total 1020 0 1700 Output Total 551 400 0 Balance 469 -400 1700 Weight 67.404 kg Intake: IV 1000 1000 Sodium Chloride 0.9% 1,000 ml @ 1000 1000 100 mls/hr IV .Q10H [facility] Rx#: [id number] Oral 20 0 700 Output: Void Amount 550 400 0 # of times incontinent of urine 1 Other: Meal Dinner Breakfast Percent of Meal Consumed 50% 50% Feeding Ability Total Assistance Total Assistance Urine Appearance Clear Clear Urine Color Dark Yellow Dark Yellow Urine Odor Normal # Voids 1 OBJ DATA Labs CBC & Chem 7: 07/01/22 05:30 07/01/22 05:30 Labs: Abnormal Lab Results 06/30/22 06/30/22 06/30/22 05:00 05:00 00:14 RBC 2.88 L Hgb 9.3 L Hct 28.9 L MCV 100.3 H RDW 16.7 H Immature Gran % (Auto) 2.8 H Neut % (Auto) Lymph % (Auto) Lymph # (Auto) 1.27 L Immature Gran # 0.22 H Sodium 126 L 123 L Potassium Chloride 87 L Carbon Dioxide BUN 57 H Creatinine Glucose 198 H Hemoglobin A1c Calcium AST 38 H ALT 58 H Total Protein 5.0 L Albumin 3.1 L Globulin 1.9 L Procalcitonin Urine Appearance Urine Glucose (UA) Ur Leukocyte Esterase Urine RBC Urine WBC Urine Mucus 06/29/22 06/29/22 06/29/22 17:59 12:38 05:18 RBC Hgb Hct MCV RDW Immature Gran % (Auto) Neut % (Auto) Lymph % (Auto) Lymph # (Auto) Immature Gran # Sodium 119 L* 121 L 122 L Potassium 3.1 L Chloride 77 L Carbon Dioxide BUN 59 H Creatinine 1.4 H Glucose 160 H Hemoglobin A1c Calcium 8.1 L AST ALT Total Protein 5.1 L Albumin 3.0 L Globulin 2.1 L Procalcitonin Urine Appearance Urine Glucose (UA) Ur Leukocyte Esterase Urine RBC Urine WBC Urine Mucus 06/29/22 06/28/22 06/28/22 05:18 05:00 05:00 RBC 2.81 L 3.28 L Hgb 9.2 L 10.6 L Hct 27.3 L 32.4 L MCV RDW 16.7 H 17.1 H Immature Gran % (Auto) 1.3 H 1.0 H Neut % (Auto) 80.6 H Lymph % (Auto) 13.3 L 14.5 L Lymph # (Auto) 1.01 L 1.38 L Immature Gran # 0.10 H 0.10 H Sodium 126 L Potassium Chloride 80 L Carbon Dioxide 34 H BUN 63 H Creatinine 1.7 H Glucose 128 H Hemoglobin A1c Calcium AST ALT Total Protein 5.6 L Albumin Globulin Procalcitonin Urine Appearance Urine Glucose (UA) Ur Leukocyte Esterase Urine RBC Urine WBC Urine Mucus 06/27/22 06/27/22 06/27/22 17:00 17:00 10:53 RBC Hgb Hct MCV RDW Immature Gran % (Auto) Neut % (Auto) Lymph % (Auto) Lymph # (Auto) Immature Gran # Sodium Potassium Chloride Carbon Dioxide BUN Creatinine Glucose Hemoglobin A1c 10.0 H Calcium AST ALT Total Protein Albumin Globulin Procalcitonin 0.17 H Urine Appearance Cloudy A Urine Glucose (UA) >=500 A Ur Leukocyte Esterase 500 A Urine RBC 18 H Urine WBC > 182 H Urine Mucus Few A Meds: Medications Acetaminophen (Acetaminophen 325 Mg Tablet) 650 mg PO Q6HP PRN; Protocol PRN Reason: Per Pain Protocol/Fever > 101 Last Admin: 06/30/22 06:51 Dose: 650 mg Albuterol/Ipratropium (Ipratropium/Albuterol 3 Ml Ampul.Neb) 3 ml NEB Q4HRT PRN PRN Reason: Wheezing Amiodarone HCl (Amiodarone Hcl 200 Mg Tablet) 200 mg PO BID [facility] Last Admin: 06/30/22 11:30 Dose: 200 mg Bisacodyl (Bisacodyl 10 Mg Supp.Rect) 10 mg [place] DAILYP PRN PRN Reason: Constipation Calcium Carbonate/Glycine (Calcium (Oyster Shell) 500 Mg Tablet) 500 mg PO DAILY [facility] Last Admin: 06/30/22 08:24 Dose: 500 mg Cefepime HCl (Cefepime 1 Gm Vial) 1 gm IV Q12H [facility]; Protocol Last Admin: 06/30/22 08:47 Dose: 1 gm Cyanocobalamin (Cyanocobalamin (Vitamin B-12) 500 Mcg Tablet) 2,500 mcg PO DAILY [facility] Last Admin: 06/30/22 08:24 Dose: 2,500 mcg Dextrose (Dextrose 50% 50 Ml Vial) 0 ml IV UD PRN PRN Reason: Per Sliding Scale Diagnostic Test (Pha) (Accu-Chek 1 Each Strip) 1 each FS ACHS [facility] Last Admin: 06/30/22 08:25 Dose: 1 each Docusate Sodium (Docusate Sodium 100 Mg Capsule) 100 mg PO BID [facility] Last Admin: 06/30/22 08:24 Dose: 100 mg Gabapentin (Gabapentin 100 Mg Capsule) 200 mg PO DAILY [facility] Last Admin: 06/30/22 08:24 Dose: 200 mg Gabapentin (Gabapentin 400 Mg Capsule) 400 mg PO [facility] Last Admin: 06/29/22 20:05 Dose: 400 mg Glucose (Dextrose 31 Gm Oral.Susp) 15 gm PO PRN PRN PRN Reason: Hypoglycemia Heparin Sodium (Porcine) (Heparin 5,000 Unit/Ml Vial) 5,000 unit SQ Q12 [facility] Last Admin: 06/30/22 08:25 Dose: 5,000 unit Sodium Chloride (Sodium Chloride 0.9%) 1,000 mls @ 100 mls/hr IV .Q10H [facility] Last Admin: 06/30/22 06:21 Dose: 100 mls/hr Insulin Glargine (Insulin Glargine, Human 1 Unit/0.01 Ml) 13 unit SQ [facility] Insulin Human Lispro (Insulin Lispro 1 Unit/0.01 Ml Unit) 0 unit SQ [facility]; Protocol Last Admin: 06/30/22 08:25 Dose: 2 units Lactulose (Lactulose 20 Gm/30 Ml Oral.Patricia) 10 gm PO DAILYP PRN PRN Reason: Constipation Magnesium Hydroxide (Magnesium Hydroxide 30 Ml Oral.Susp) 30 ml PO Q2D PRN PRN Reason: Constipation Metolazone (Metolazone 2.5 Mg Tablet) 2.5 mg PO DAILY [facility] Last Admin: 06/30/22 10:37 Dose: Not Given Metoprolol Tartrate (Metoprolol Tartrate 25 Mg Tablet) 25 mg PO BID [facility] Last Admin: 06/30/22 10:37 Dose: Not Given Morphine Sulfate (Morphine 2 Mg/Ml Vial) 2 mg IV Q4HP PRN PRN Reason: Pain Last Admin: 06/30/22 07:10 Dose: 2 mg Magic Mouthwash ( Viscous Lidocaine 2% /Maalox) 1:1 Solution 0 dose SSP QID [facility] Last Admin: 06/30/22 08:24 Dose: 1 dose Omeprazole (Omeprazole 20 Mg Capsule) 20 mg PO BIDAC [facility] Last Admin: 06/30/22 08:24 Dose: 20 mg Ondansetron HCl (Ondansetron 4 Mg/2 Ml Vial) 4 mg IV Q4HP PRN; Protocol PRN Reason: Nausea And Vomiting Oxybutynin Chloride (Oxybutynin Chloride 5 Mg Tab.Xl.24h) 10 mg PO QDAY [facility] Last Admin: 06/30/22 08:47 Dose: 10 mg Anastrozole 1 Mg (Tablet) 1 dose PO QDAY [facility] Last Admin: 06/30/22 10:37 Dose: Not Given Polyethylene Glycol (Polyethylene Glycol 3350 17 Gm Packet) 17 gm PO DAILYP PRN PRN Reason: Constipation Potassium Chloride (Potassium Chloride 10 Meq Tablet) 20 meq PO QDAY [facility] Last Admin: 06/30/22 08:25 Dose: 20 meq Prednisone (Prednisone 20 Mg Tablet) 20 mg PO BIDCC [facility] Last Admin: 06/30/22 08:25 Dose: 20 mg Senna (Sennosides 1 Tablet) 2 tab PO HSP PRN PRN Reason: Constipation Sertraline HCl (Sertraline 50 Mg Tablet) 25 mg PO DAILY [facility] Last Admin: 06/30/22 08:25 Dose: 25 mg Sodium Biphosphate/Sodium Phosphate (Fleets Adult Enema) 1 dose [place] DAILYP PRN PRN Reason: Constipation Sodium Chloride (0.9 % Sodium Chloride 10 Ml Syringe) 10 ml IV Q8 [facility] Last Admin: 06/30/22 05:30 Dose: Not Given Vitamin D (Vitamin D3 25 Mcg Tablet) 25 mcg PO BID [facility] Last Admin: 06/30/22 08:24 Dose: 25 mcg A/P Assessment and plan (1) Acute hypokalemia: Status: Acute (2) Uncontrolled type 2 diabetes mellitus with hyperglycemia: Status: Acute (3) Atrial fibrillation: Status: Acute (4) CHF (congestive heart failure): Status: Acute (5) UTI (urinary tract infection): Status: Acute (6) Wound of skin: Status: Acute (7) Delirium: Status: Acute (8) Breast cancer: Status: Acute (9) Stage 1 acute kidney injury: Status: Acute (10) Hyponatremia: Status: Acute Narrative A/P Narrative: Assessment and Plans: 1. UTI secondary to Pseudomonas: Inpatient PCU Blood culture, no growth to date Urine culture, pseudomonas aeruginosa sensitive to cefepime and ciprofloxacin cbc w/ auto diff in the AM to trend WBC Cefepime while inpatient or ciprofloxacin at discharge to complete 5 days of Pseudomonas antibiotic coverage. Physical therapy 2. Hyperglycemia with T2DM: HgA1c 10.0 Hold oral hypoglycemics Lantus 10->13->16 units HS Medium dose SSI AC HS Accu Chek AC HS Diabetic diet 3. Hypokalemia: s/p IV and PO potassium replacement in the ED, to be followed by continue PO replacement CMP daily to trend serum potassium level Also check serum Mg level and replace if needed 4. Resolved acute kidney injury: NS@100cc/hr Resume Lasix at 40 mg daily, holding metolazone. Holding Losartan CMP in the morning to trend kidney functions 5. Acute delirium: CT head w/o contrast no acute changes Likely 2/2 #1-4, treat accordingly, see above 6. Atrial fibrillation: Hold Eliquis due to frequent falls Amiodarone 200 mg daily. Lopressor 25 mg twice daily. 6. h/o CHF, stable: Metoprolol tartrate Lasix 40 mg daily, holding metolazone for now. Hold Losartan 7. h/o breast cancer: Anastrozole 8. Right elbow and posterior head wounds: Consult wound care team, recs. appreciated . Remove ivan from head wound. 9. Hyponatremia: Discontinue IV fluid. Serum osmolality, urine osmolality, urine sodium. Fluid restriction. 10. Prolonged high-dose prednisone therapy probably for left optic neuritis Obtain CRP and ESR. Start Bactrim DS 3 times a week for pneumocystis pneumonia prophylaxis. Consider tapering prednisone dose. Follow-up with boiler repairman who started prednisone, optimally the patient would have an appointment to see rheumatology however there is apparently no local rheumatology services available at this time. GI ppx: not currently indicated DVT ppx: Heparin Code status: DNR Prognosis: guarded Disposition: SNF for rehab when stable. Time Spent With Patient Time: Total time spent is greater than 50% in coordination of care (as documented) at patient's floor/unit and/or counseling patient: QUALITY VTE Deep Vein Thrombosis/Pulmonary Embolism Present on Admission: No
[2022-06-30] MEDS: GABAPENTIN 400 MG CAPSULE PO SCH (20:05)
[2022-06-30] MEDS ORDERED: INSULIN GLARGINE, HUMAN 1 UNIT/0.01 ML SQ SCH (21:00)
[2022-07-01] MEDS: morphine 2 MG/ML VIAL IV PRN ×2 (01:18→04:05)
[2022-07-01] MEDS: 0.9 % SODIUM CHLORIDE 10 ML SYRINGE IV SCH ×3 (04:07→20:14)
[2022-07-01] MEDS: 0.9 % SODIUM CHLORIDE 1,000 ML IV SCH (05:52)
[2022-07-01 06:35] LABS: Basophils # (Auto) 0.02 K/mcL (0.00-0.30); Basophils % (Auto) 0.2 % (0.0-2.0); Eosinophils # (Auto) 0 K/mcL (0.00-0.70); Eosinophils % (Auto) 0 % (0.0-7.0); Hematocrit 29.2 % (34.1-44.9); Hemoglobin 9.4 g/dL (11.2-15.7); Lymphocytes # (Auto) 1.54 K/mcL (1.50-4.80); Lymphocytes % (Auto) 15.9 % (15.5-49.0); Mean Cell Volume 100.7 fL (80.0-100.0); Mean Corpuscular HGB Conc 32.2 g/dL (31.0-36.0); Monocytes # (Auto) 0.72 K/mcL (0.10-0.90); Monocytes % (Auto) 7.4 % (1.0-12.0); Neutrophils % (Auto) 70.7 % (38.0-78.0); Platelet Count 220 K/mcL (140-440); Red Cell Distribution Width 16.8 % (11.5-14.5); WBC 9.7 K/mcL (4.5-11.0)
[2022-07-01 07:03] LABS: ALT/SGPT 89 U/L (<40); AST/SGOT 41 U/L (<32); Albumin 3.2 gm/dL (3.2-5.2); Albumin/Globulin Ratio 1.5 (1.0-2.3); Alkaline Phosphatase 83 U/L (39-117); Bilirubin,Total 0.6 mg/dL (0.1-1.0); Blood Urea Nitrogen 39 mg/dL (8-23); Calcium 8.9 mg/dL (8.6-10.4); Carbon Dioxide 24 mmol/L (22-30); Chloride 90 mmol/L (96-108); Globulin 2.2 gm/dL (2.2-3.7); Glomerular Filtration Rate 67; Glucose 221 mg/dL (70-105); Phosphorous 1.9 mg/dL (2.5-4.5)
[2022-07-01] MEDS: OMEPRAZOLE 20 MG CAPSULE PO SCH ×2 (08:29→17:24)
[2022-07-01] MEDS: INSULIN LISPRO 1 UNIT/0.01 ML UNIT SQ SCH ×4 (08:38→20:13)
[2022-07-01] MEDS: METOLAZONE 2.5 MG TABLET PO SCH (09:23)
[2022-07-01] MEDS: POTASSIUM CHLORIDE 10 MEQ TABLET PO SCH (09:23)
[2022-07-01] MEDS: GABAPENTIN 100 MG CAPSULE PO SCH (09:23)
[2022-07-01] MEDS: predniSONE 20 MG TABLET PO SCH ×2 (09:23→17:30)
[2022-07-01] MEDS: AMIODARONE HCL 200 MG TABLET PO SCH (09:24)
[2022-07-01] MEDS: OXYBUTYNIN CHLORIDE 5 MG TAB.XL.24H PO SCH (09:24)
[2022-07-01] MEDS: SERTRALINE 50 MG TABLET PO SCH (09:24)
[2022-07-01] MEDS: CEFEPIME 1 GM VIAL IV SCH ×2 (10:12→20:12)
[2022-07-01] MEDS: HEPARIN 5,000 UNIT/ML VIAL SQ SCH ×2 (10:12→20:12)
[2022-07-01] MEDS: MAGIC MOUTHWASH SSP SCH ×4 (10:48→20:12)
[2022-07-01] MEDS: [UNRECOGNIZED DRUG - OTHER] SSP SCH ×4 (10:48→20:12)
[2022-07-01] MEDS: DOCUSATE SODIUM 100 MG CAPSULE PO SCH ×2 (13:43→20:12)
[2022-07-01] MEDS: VITAMIN D3 25 MCG TABLET PO SCH ×2 (13:43→20:12)
[2022-07-01] MEDS: CYANOCOBALAMIN (VITAMIN B-12) 500 MCG TABLET PO SCH (13:43)
[2022-07-01] MEDS: CALCIUM (OYSTER SHELL) 500 MG TABLET PO SCH (13:43)
[2022-07-01] MEDS: SULFAMETHOXAZOLE/TRIMETHOPRIM 1 TABLET PO SCH (14:15)
[2022-07-01] MEDS: ACETAMINOPHEN 325 MG TABLET PO PRN (17:29)
[2022-07-01 19:44] LABS: Sodium, Urine Random 70 mmol/L
[2022-07-01 19:46] LABS: Osmolality,Urine 422 mOSM/kg (80-1000)
[2022-07-01] MEDS: METOPROLOL TARTRATE 25 MG TABLET PO SCH (20:12)
[2022-07-01] MEDS: GABAPENTIN 400 MG CAPSULE PO SCH (20:12)
[2022-07-01] MEDS: INSULIN GLARGINE, HUMAN 1 UNIT/0.01 ML SQ SCH (20:13)
[2022-07-02] MEDS: 0.9 % SODIUM CHLORIDE 10 ML SYRINGE IV SCH ×3 (05:07→20:11)
[2022-07-02] MEDS: morphine 2 MG/ML VIAL IV PRN ×2 (05:48→22:23)
[2022-07-02 06:56] LABS: Basophils # (Auto) 0.03 K/mcL (0.00-0.30); Basophils % (Auto) 0.2 % (0.0-2.0); Eosinophils # (Auto) 0 K/mcL (0.00-0.70); Eosinophils % (Auto) 0 % (0.0-7.0); Hematocrit 29.3 % (34.1-44.9); Hemoglobin 9.4 g/dL (11.2-15.7); Lymphocytes # (Auto) 2.45 K/mcL (1.50-4.80); Lymphocytes % (Auto) 20.3 % (15.5-49.0); Mean Cell Volume 101.4 fL (80.0-100.0); Mean Corpuscular HGB Conc 32.1 g/dL (31.0-36.0); Mean Platelet Volume 11.5 fL (8.8-12.5); Monocytes # (Auto) 0.57 K/mcL (0.10-0.90); Monocytes % (Auto) 4.7 % (1.0-12.0); Neutrophils % (Auto) 69.4 % (38.0-78.0); Platelet Count 217 K/mcL (140-440); RBC 2.89 M/mcL (3.59-5.38); Red Cell Distribution Width 17.1 % (11.5-14.5)
[2022-07-02 07:16] LABS: ALT/SGPT 74 U/L (<40); AST/SGOT 25 U/L (<32); Albumin 3.2 gm/dL (3.2-5.2); Albumin/Globulin Ratio 1.6 (1.0-2.3); Alkaline Phosphatase 76 U/L (39-117); Bilirubin,Total 0.4 mg/dL (0.1-1.0); Blood Urea Nitrogen 33 mg/dL (8-23); Calcium 9.2 mg/dL (8.6-10.4); Carbon Dioxide 27 mmol/L (22-30); Chloride 90 mmol/L (96-108); Glomerular Filtration Rate 79; Glucose 109 mg/dL (70-105)
[2022-07-02 07:17] LABS: Phosphorous 2.1 mg/dL (2.5-4.5)
[2022-07-02] MEDS: OMEPRAZOLE 20 MG CAPSULE PO SCH ×3 (08:02→17:05)
[2022-07-02] MEDS: AMIODARONE HCL 200 MG TABLET PO SCH (08:02)
[2022-07-02] MEDS: predniSONE 20 MG TABLET PO SCH (08:03)
[2022-07-02] MEDS: [UNRECOGNIZED DRUG - OTHER] SSP SCH ×4 (08:12→20:10)
[2022-07-02] MEDS: MAGIC MOUTHWASH SSP SCH ×4 (08:12→20:10)
[2022-07-02] MEDS: METOPROLOL TARTRATE 25 MG TABLET PO SCH (08:50)
[2022-07-02] MEDS: SERTRALINE 50 MG TABLET PO SCH (08:51)
[2022-07-02] MEDS: CALCIUM (OYSTER SHELL) 500 MG TABLET PO SCH (08:51)
[2022-07-02] MEDS: POTASSIUM CHLORIDE 10 MEQ TABLET PO SCH (08:51)
[2022-07-02] MEDS: GABAPENTIN 100 MG CAPSULE PO SCH (08:51)
[2022-07-02] MEDS: OXYBUTYNIN CHLORIDE 5 MG TAB.XL.24H PO SCH (08:51)
[2022-07-02] MEDS: FUROSEMIDE 20 MG TABLET PO SCH (08:51)
[2022-07-02] MEDS: CEFEPIME 1 GM VIAL IV SCH ×2 (08:53→20:08)
[2022-07-02] MEDS: DOCUSATE SODIUM 100 MG CAPSULE PO SCH ×2 (08:53→20:08)
[2022-07-02] MEDS: VITAMIN D3 25 MCG TABLET PO SCH ×2 (08:53→20:08)
[2022-07-02] MEDS: CYANOCOBALAMIN (VITAMIN B-12) 500 MCG TABLET PO SCH (08:53)
[2022-07-02] MEDS: INSULIN LISPRO 1 UNIT/0.01 ML UNIT SQ SCH ×4 (09:11→20:09)
[2022-07-02] MEDS: HEPARIN 5,000 UNIT/ML VIAL SQ SCH ×2 (10:13→20:08)
--- NOTE | 2022-07-02 14:16 | Internal Med Progress Note ---
SUBJECTIVE Subjective Patient information: Note initiated : 07/02/22 at 2:10 pm Service Date, if different from initiated Date: [] Patient: Isi Forman 87 y/o F admitted on 06/27/22 for decreased level of consciousness. Chief Complaint: [] Interval history: 07/01 Afebrile overnight, RAMIRO has resolved. Changed amiodarone from 200 mg p.o. twice daily to 200 mg daily. Restarted Lasix at 40 mg daily, discontinued metolazone. Sodium level 127, ordered serum osmolality, urine osmolality, urine sodium. Started fluid restriction. Valiente catheter placed overnight for urinary retention, will remove today and follow with bladder scans. Discussed p atient's prednisone dose which is reportedly for optic neuritis, will obtain a ESR and CRP level to send to the patient's primary care pediatrician. Per family's report, the patient has been on high-dose prednisone since March 2022. It does not sound like the patient is on pneumocystis prophylaxis instead of being on high-dose steroids for several months so we will start Bactrim 3 times a week. Optimally, the patient can be tapered off prednisone in the coming weeks. Remove ivan from head wound, ivan were placed about 10 days ago. 07/02 Heart rate in the 50s, discontinued Lopressor. Sodium decreased to 124, reordered urine osmolality and urine sodium as prior results not reported. Also reordered serum osmolality given the unexpected normal findings from the last test. ESR and CRP mildly elevated so decrease prednisone dose to 20 mg daily. White blood cell count increased today, follow WBC tomorrow. Check TSH in the morning. Patient is very weak, concern for risk of aspiration therefore speech therapy consulted. Physical exam Head: Atraumatic, normal inspection. Eyes: normal appearance, no scleral icterus. Neck: full ROM Respiratory: no respiratory distress. Cardiovascular: normal rate and rhythm, S1, S2. GI/Abdominal: soft, nontender, no guarding. Extremities: full range of motion, nontender. Neurological: CN II-XII intact, intact motor, intact sensation. Psychiatric: normal mood. Skin: Multiple wounds to right upper extremity covered with bandages. Constitutional Vitals: Vital Signs Temp Pulse Resp BP Pulse Ox O2 Del Method O2 Flow Rate 97.5 F 55 L 13 139/56 94 2 07/02/22 04:01 07/02/22 12:01 07/02/22 12:01 07/02/22 12:01 07/02/22 12:01 07/02/22 06:01 06/30/22 22:01 Period Temp Pulse Resp BP Sys/Rhodes Pulse Ox O2 Del Method O2 Flow Rate Last 24 Hr 96.3 F-97.6 F 51-69 11-24 122-165/54-102 89-100 Room Air-Room Air Intake and Output 07/02/22 07/02/22 07/02/22 05:59 13:59 21:59 Intake Total 240 540 Output Total 700 350 Balance -460 190 Intake & Output: Intake & Output 07/02/22 07/02/22 07/02/22 05:59 13:59 21:59 Intake Total 240 540 Output Total 700 350 Balance -460 190 Intake: Nourishment/Supplement quantity 240 (ml) Oral 240 300 Output: Urine Catheter Amount 700 Void Amount 0 350 Other: Meal Lunch Percent of Meal Consumed 25% Feeding Ability Total Assistance Nourishment/Supplement name glucerna Urine Appearance Clear Cloudy Straight Clear Urine Color Bright Yellow Dark Yellow Straight Bright Yellow OBJ DATA Labs CBC & Chem 7: 07/02/22 05:24 07/02/22 05:24 Labs: Abnormal Lab Results 07/02/22 07/02/22 07/02/22 05:24 05:24 05:24 WBC 12.0 H RBC 2.89 L Hgb 9.4 L Hct 29.3 L MCV 101.4 H RDW 17.1 H Immature Gran % (Auto) 5.4 H Lymph # (Auto) Immature Gran # 0.65 H Absolute Neutrophils 8.34 H ESR Sodium 124 L Chloride 90 L Anion Gap 7.0 L BUN 33 H Glucose 109 H Osmolality 278 L Phosphorus 2.1 L AST ALT 74 H C-Reactive Protein Total Protein 5.2 L Albumin Globulin 2.0 L 07/01/22 07/01/22 07/01/22 05:30 05:30 05:30 WBC RBC Hgb Hct MCV RDW Immature Gran % (Auto) Lymph # (Auto) Immature Gran # Absolute Neutrophils ESR 33 H Sodium 127 L Chloride 90 L Anion Gap BUN 39 H Glucose 221 H Osmolality Phosphorus 1.9 L AST 41 H ALT 89 H C-Reactive Protein 1.80 H Total Protein 5.4 L Albumin Globulin 07/01/22 06/30/22 06/30/22 05:30 17:55 12:06 WBC RBC 2.90 L Hgb 9.4 L Hct 29.2 L MCV 100.7 H RDW 16.8 H Immature Gran % (Auto) 5.8 H Lymph # (Auto) Immature Gran # 0.56 H Absolute Neutrophils ESR Sodium 128 L 127 L Chloride Anion Gap BUN Glucose Osmolality Phosphorus AST ALT C-Reactive Protein Total Protein Albumin Globulin 06/30/22 06/30/22 06/30/22 05:00 05:00 00:14 WBC RBC 2.88 L Hgb 9.3 L Hct 28.9 L MCV 100.3 H RDW 16.7 H Immature Gran % (Auto) 2.8 H Lymph # (Auto) 1.27 L Immature Gran # 0.22 H Absolute Neutrophils ESR Sodium 126 L 123 L Chloride 87 L Anion Gap BUN 57 H Glucose 198 H Osmolality Phosphorus AST 38 H ALT 58 H C-Reactive Protein Total Protein 5.0 L Albumin 3.1 L Globulin 1.9 L 06/29/22 17:59 WBC RBC Hgb Hct MCV RDW Immature Gran % (Auto) Lymph # (Auto) Immature Gran # Absolute Neutrophils ESR Sodium 119 L* Chloride Anion Gap BUN Glucose Osmolality Phosphorus AST ALT C-Reactive Protein Total Protein Albumin Globulin Meds: Medications Acetaminophen (Acetaminophen 325 Mg Tablet) 650 mg PO Q6HP PRN; Protocol PRN Reason: Per Pain Protocol/Fever > 101 Last Admin: 07/01/22 17:29 Dose: 650 mg Albuterol/Ipratropium (Ipratropium/Albuterol 3 Ml Ampul.Neb) 3 ml NEB Q4HRT PRN PRN Reason: Wheezing Amiodarone HCl (Amiodarone Hcl 200 Mg Tablet) 200 mg PO [facility] Last Admin: 07/02/22 08:02 Dose: 200 mg Bisacodyl (Bisacodyl 10 Mg Supp.Rect) 10 mg [place] DAILYP PRN PRN Reason: Constipation Calcium Carbonate/Glycine (Calcium (Oyster Shell) 500 Mg Tablet) 500 mg PO DAILY [facility] Last Admin: 07/02/22 08:51 Dose: 500 mg Cefepime HCl (Cefepime 1 Gm Vial) 1 gm IV Q12H [facility]; Protocol Last Admin: 07/02/22 08:53 Dose: 1 gm Cyanocobalamin (Cyanocobalamin (Vitamin B-12) 500 Mcg Tablet) 2,500 mcg PO DAILY [facility] Last Admin: 07/02/22 08:53 Dose: 2,500 mcg Dextrose (Dextrose 50% 50 Ml Vial) 0 ml IV UD PRN PRN Reason: Per Sliding Scale Diagnostic Test (Pha) (Accu-Chek 1 Each Strip) 1 each FS ACHS [facility] Last Admin: 07/02/22 11:50 Dose: 1 each Docusate Sodium (Docusate Sodium 100 Mg Capsule) 100 mg PO BID [facility] Last Admin: 07/02/22 08:53 Dose: 100 mg Furosemide (Furosemide 20 Mg Tablet) 40 mg PO DAILY [facility] Last Admin: 07/02/22 08:51 Dose: 40 mg Gabapentin (Gabapentin 100 Mg Capsule) 200 mg PO DAILY [facility] Last Admin: 07/02/22 08:51 Dose: 200 mg Gabapentin (Gabapentin 400 Mg Capsule) 400 mg PO HS [facility] Last Admin: 07/01/22 20:12 Dose: 400 mg Glucose (Dextrose 31 Gm Oral.Susp) 15 gm PO PRN PRN PRN Reason: Hypoglycemia Heparin Sodium (Porcine) (Heparin 5,000 Unit/Ml Vial) 5,000 unit SQ Q12 [facility] Last Admin: 07/02/22 10:13 Dose: 5,000 unit Insulin Glargine (Insulin Glargine, Human 1 Unit/0.01 Ml) 16 unit SQ [facility] Last Admin: 07/01/22 20:13 Dose: 16 unit Insulin Human Lispro (Insulin Lispro 1 Unit/0.01 Ml Unit) 0 unit SQ [facility]; Protocol Last Admin: 07/02/22 11:59 Dose: 4 unit Lactulose (Lactulose 20 Gm/30 Ml Oral.Patricia) 10 gm PO DAILYP PRN PRN Reason: Constipation Magnesium Hydroxide (Magnesium Hydroxide 30 Ml Oral.Susp) 30 ml PO Q2D PRN PRN Reason: Constipation Morphine Sulfate (Morphine 2 Mg/Ml Vial) 2 mg IV Q4HP PRN PRN Reason: Pain Last Admin: 07/02/22 05:48 Dose: 2 mg Magic Mouthwash ( Viscous Lidocaine 2% /Maalox) 1:1 Solution 0 dose SSP QID [facility] Last Admin: 07/02/22 11:58 Dose: 1 dose Omeprazole (Omeprazole 20 Mg Capsule) 20 mg PO BIDAC [facility] Last Admin: 07/02/22 08:22 Dose: Not Given Ondansetron HCl (Ondansetron 4 Mg/2 Ml Vial) 4 mg IV Q4HP PRN; Protocol PRN Reason: Nausea And Vomiting Oxybutynin Chloride (Oxybutynin Chloride 5 Mg Tab.Xl.24h) 10 mg PO QDAY [facility] Last Admin: 07/02/22 08:51 Dose: 10 mg Anastrozole 1 Mg (Tablet) 1 dose PO QDAY [facility] Last Admin: 07/02/22 10:11 Dose: Not Given Polyethylene Glycol (Polyethylene Glycol 3350 17 Gm Packet) 17 gm PO DAILYP PRN PRN Reason: Constipation Potassium Chloride (Potassium Chloride 10 Meq Tablet) 20 meq PO QDAY [facility] Last Admin: 07/02/22 08:51 Dose: 20 meq Prednisone ([facility] 20 Mg Tablet) [facility] Senna (Sennosides 1 Tablet) 2 tab PO HSP PRN PRN Reason: Constipation Sertraline HCl (Sertraline 50 Mg Tablet) 25 mg PO DAILY [facility] Last Admin: 07/02/22 08:51 Dose: 25 mg Sodium Biphosphate/Sodium Phosphate (Fleets Adult Enema) 1 dose [place] DAILYP PRN PRN Reason: Constipation Sodium Chloride (0.9 % Sodium Chloride 10 Ml Syringe) 10 ml IV Q8 [facility] Last Admin: 07/02/22 05:07 Dose: 10 ml Trimethoprim/Sulfamethoxazole (Sulfamethoxazole/Trimethoprim 1 Tablet) 1 tab PO SuTuTh@0900 [facility]; Protocol Last Admin: 07/01/22 14:15 Dose: 1 tab Vitamin D (Vitamin D3 25 Mcg Tablet) 25 mcg PO BID [facility] Last Admin: 07/02/22 08:53 Dose: 25 mcg A/P Narrative A/P Narrative: Assessment and Plans: # UTI secondary to Pseudomonas: Inpatient PCU Blood culture, no growth to date Urine culture, pseudomonas aeruginosa sensitive to cefepime and ciprofloxacin Cefepime while inpatient or ciprofloxacin at discharge to complete 5 days of Pseudomonas antibiotic coverage. Physical therapy # Hyponatremia: Serum osmolality, urine osmolality, urine sodium. Fluid restriction. # Severe generalized weakness PT and OT, low intensity rehab at discharge. Check TSH level. # Type 2 diabetes mellitus HgA1c 10.0 Hold oral hypoglycemics Lantus 10->13->16 units HS Medium dose SSI AC HS Accu Chek AC HS Diabetic diet # Resolved hypokalemia: Follow potassium periodically. # Resolved acute kidney injury: NS@100cc/hr Resume Lasix at 40 mg daily, holding metolazone. Holding Losartan CMP in the morning to trend kidney functions # Atrial fibrillation: Hold Eliquis due to frequent falls Amiodarone 200 mg daily. Lopressor 25 mg twice daily. # h/o CHF, stable: Metoprolol tartrate Lasix 40 mg daily, holding metolazone for now. Hold Losartan # h/o breast cancer: Anastrozole # Right elbow and posterior head wounds: Consult wound care team, recs. appreciated . Remove ivan from head wound. #Concern for dysphagia Speech therapy consult. # Prolonged high-dose prednisone therapy probably for left optic neuritis Reduce prednisone to 20 mg daily. Bactrim DS 3 times a week for Pneumocystis pneumonia prophylaxis. Follow-up with primary care pediatrician who started prednisone, optimally the patient would have an appointment to see rheumatology however there is apparently no local rheumatology services available at this time. GI ppx: not currently indicated DVT ppx: Heparin Code status: DNR Prognosis: guarded Disposition: SNF for rehab when stable. Time Spent With Patient Time: Total time spent is greater than 50% in coordination of care (as documented) at patient's floor/unit and/or counseling patient: QUALITY VTE Deep Vein Thrombosis/Pulmonary Embolism Present on Admission: No
[2022-07-02 16:48] LABS: Sodium, Urine Random 88 mmol/L
[2022-07-02 17:05] LABS: Osmolality,Urine 388 mOSM/kg (80-1000)
[2022-07-02] MEDS: GABAPENTIN 400 MG CAPSULE PO SCH (20:08)
[2022-07-02] MEDS: INSULIN GLARGINE, HUMAN 1 UNIT/0.01 ML SQ SCH (20:09)
[2022-07-03] MEDS: 0.9 % SODIUM CHLORIDE 10 ML SYRINGE IV SCH ×3 (05:14→20:16)
[2022-07-03 06:06] LABS: Basophils # (Auto) 0.02 K/mcL (0.00-0.30); Basophils % (Auto) 0.2 % (0.0-2.0); Eosinophils # (Auto) 0.07 K/mcL (0.00-0.70); Eosinophils % (Auto) 0.6 % (0.0-7.0); Hematocrit 27.8 % (34.1-44.9); Hemoglobin 9.1 g/dL (11.2-15.7); Lymphocytes # (Auto) 3.78 K/mcL (1.50-4.80); Mean Cell Volume 99.3 fL (80.0-100.0); Mean Corpuscular HGB Conc 32.7 g/dL (31.0-36.0); Mean Platelet Volume 11.2 fL (8.8-12.5); Monocytes # (Auto) 0.64 K/mcL (0.10-0.90); Monocytes % (Auto) 5.6 % (1.0-12.0); Neutrophils % (Auto) 54.9 % (38.0-78.0); Platelet Count 187 K/mcL (140-440); Red Cell Distribution Width 17.3 % (11.5-14.5); WBC 11.5 K/mcL (4.5-11.0)
[2022-07-03 06:45] LABS: ALT/SGPT 92 U/L (<40); AST/SGOT 52 U/L (<32); Albumin/Globulin Ratio 1.5 (1.0-2.3); Alkaline Phosphatase 74 U/L (39-117); Bilirubin,Total 0.5 mg/dL (0.1-1.0); Blood Urea Nitrogen 29 mg/dL (8-23); Calcium 8.7 mg/dL (8.6-10.4); Carbon Dioxide 27 mmol/L (22-30); Chloride 91 mmol/L (96-108); Glomerular Filtration Rate 67; Glucose 52 mg/dL (70-105); Phosphorous 2.1 mg/dL (2.5-4.5)
[2022-07-03 07:00] LABS: Thyroid Stimulating Hormone 2.87 uIU/mL (0.27-5.01)
[2022-07-03] MEDS: AMIODARONE HCL 200 MG TABLET PO SCH (07:10)
[2022-07-03] MEDS: INSULIN LISPRO 1 UNIT/0.01 ML UNIT SQ SCH ×4 (07:10→20:16)
[2022-07-03] MEDS: OMEPRAZOLE 20 MG CAPSULE PO SCH ×2 (07:10→16:49)
[2022-07-03] MEDS: morphine 2 MG/ML VIAL IV PRN (07:19)
[2022-07-03] MEDS ORDERED: predniSONE 20 MG TABLET PO SCH (08:00)
[2022-07-03] MEDS: OXYBUTYNIN CHLORIDE 5 MG TAB.XL.24H PO SCH (08:03)
[2022-07-03] MEDS: DOCUSATE SODIUM 100 MG CAPSULE PO SCH ×2 (08:03→20:14)
[2022-07-03] MEDS: HEPARIN 5,000 UNIT/ML VIAL SQ SCH ×2 (08:03→20:16)
[2022-07-03] MEDS: SULFAMETHOXAZOLE/TRIMETHOPRIM 1 TABLET PO SCH (08:03)
[2022-07-03] MEDS: GABAPENTIN 100 MG CAPSULE PO SCH (08:04)
[2022-07-03] MEDS: VITAMIN D3 25 MCG TABLET PO SCH ×2 (08:04→20:15)
[2022-07-03] MEDS: POTASSIUM CHLORIDE 10 MEQ TABLET PO SCH (08:04)
[2022-07-03] MEDS: FUROSEMIDE 20 MG TABLET PO SCH (08:04)
[2022-07-03] MEDS: CYANOCOBALAMIN (VITAMIN B-12) 500 MCG TABLET PO SCH (08:04)
[2022-07-03] MEDS: CALCIUM (OYSTER SHELL) 500 MG TABLET PO SCH (08:04)
[2022-07-03] MEDS: SERTRALINE 50 MG TABLET PO SCH (08:05)
[2022-07-03] MEDS: CEFEPIME 1 GM VIAL IV SCH ×2 (08:09→20:16)
[2022-07-03] MEDS: [UNRECOGNIZED DRUG - OTHER] SSP SCH ×4 (08:09→20:15)
[2022-07-03] MEDS: MAGIC MOUTHWASH SSP SCH ×4 (08:09→20:15)
[2022-07-03] MEDS: FOLIC ACID/VITAMIN B COMP W-C 1 TAB TABLET PO SCH (08:48)
[2022-07-03] MEDS: NEUTRA PHOS 1 PACKET PO SCH ×2 (08:48→20:15)
--- NOTE | 2022-07-03 14:02 | Internal Med Progress Note ---
SUBJECTIVE Subjective Patient information: Note initiated : 07/03/22 at 2:01 pm Service Date, if different from initiated Date: [] Patient: Isi Forman 87 y/o F admitted on 06/27/22 for decreased level of consciousness. Chief Complaint: [] Interval history: 07/01 Afebrile overnight, RAMIRO has resolved. Changed amiodarone from 200 mg p.o. twice daily to 200 mg daily. Restarted Lasix at 40 mg daily, discontinued metolazone. Sodium level 127, ordered serum osmolality, urine osmolality, urine sodium. Started fluid restriction. Valiente catheter placed overnight for urinary retention, will remove today and follow with bladder scans. Discussed p atient's prednisone dose which is reportedly for optic neuritis, will obtain a ESR and CRP level to send to the patient's speech therapy teacher. Per family's report, the patient has been on high-dose prednisone since March 2022. It does not sound like the patient is on pneumocystis prophylaxis instead of being on high-dose steroids for several months so we will start Bactrim 3 times a week. Optimally, the patient can be tapered off prednisone in the coming weeks. Remove ivan from head wound, ivan were placed about 10 days ago. 07/02 Heart rate in the 50s, discontinued Lopressor. Sodium decreased to 124, reordered urine osmolality and urine sodium as prior results not reported. Also reordered serum osmolality given the unexpected normal findings from the last test. ESR and CRP mildly elevated so decrease prednisone dose to 20 mg daily. White blood cell count increased today, follow WBC tomorrow. Check TSH in the morning. Patient is very weak, concern for risk of aspiration therefore speech therapy consulted. 07/03 No significant events overnight, dysphagia level 5 diet. The patient is requiring significant amounts of assistance with eating and all activities. Educe Lantus to 10 units at bedtime due to hypoglycemia this morning. Sodium improved to 128. 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 Discontinued morphine IV and started hydrocodone p.o. as needed. Decrease prednisone to 20 mg daily. Continues on cefepime, near completion of UTI treatment for Pseudomonas. The patient is gradually progressing to hospital discharge however with the patient's prognosis is guarded as she has poor nutritional intake, is very weak and not participating with therapies. Goals of care discussed with the patient and her at the bedside in light of the poor prognosis. They do not want the patient to return to the prior longterm facility stating that were not able to provide care for the patient. Hospice has been considered by the patient and family, they will discuss this further with family members and among some cells. Transition to MedSurg status. Physical exam Head: Atraumatic, normal inspection. Eyes: normal appearance, no scleral icterus. Neck: full ROM Respiratory: no respiratory distress. Cardiovascular: normal rate and rhythm, S1, S2. GI/Abdominal: soft, nontender, no guarding. Extremities: full range of motion, nontender. Neurological: CN II-XII intact, intact motor, intact sensation. Psychiatric: normal mood. Skin: Multiple wounds to right upper extremity covered with bandages. Constitutional Vitals: Vital Signs Temp Pulse Resp BP Pulse Ox O2 Del Method O2 Flow Rate 97.8 F 61 14 138/56 99 2.5 07/03/22 12:01 07/03/22 12:01 07/03/22 12:01 07/03/22 12:01 07/03/22 12:01 07/03/22 12:01 07/03/22 12:01 Period Temp Pulse Resp BP Sys/Rhodes Pulse Ox O2 Del Method O2 Flow Rate Last 24 Hr 96.3 F-97.9 F 48-61 11-20 110-188/48-78 89-99 Nasal Cannula- Room Air 2.5 Intake and Output 07/03/22 07/03/22 07/03/22 05:59 13:59 21:59 Intake Total 120 720 Output Total 601 25 Balance -481 695 Weight 69.309 kg Patient Weight 07/04/22 05:59 Weight 69.309 kg Intake & Output: Intake & Output 07/03/22 07/03/22 07/03/22 05:59 13:59 21:59 Intake Total 120 720 Output Total 601 25 Balance -481 695 Weight 69.309 kg Intake: Nourishment/Supplement quantity 240 (ml) Oral 120 480 Output: Void Amount 600 25 # of times incontinent of urine 1 Other: Meal Breakfast Percent of Meal Consumed 50% Feeding Ability Total Assistance Nourishment/Supplement name Glucerna Urine Appearance Clear Urine Color Bright Yellow OBJ DATA Labs CBC & Chem 7: 07/03/22 05:07 07/03/22 05:07 Labs: Abnormal Lab Results 07/03/22 07/03/22 07/03/22 05:07 05:07 05:07 WBC 11.5 H RBC 2.80 L Hgb 9.1 L Hct 27.8 L MCV RDW 17.3 H Immature Gran % (Auto) 5.7 H Immature Gran # 0.65 H Absolute Neutrophils ESR Sodium 128 L Chloride 91 L Anion Gap BUN 29 H Glucose 52 L Osmolality Phosphorus 2.1 L AST 52 H ALT 92 H C-Reactive Protein Total Protein 5.0 L Albumin 3.0 L Globulin 2.0 L Vitamin B12 > 2000.0 H 07/02/22 07/02/22 07/02/22 05:24 05:24 05:24 WBC 12.0 H RBC 2.89 L Hgb 9.4 L Hct 29.3 L MCV 101.4 H RDW 17.1 H Immature Gran % (Auto) 5.4 H Immature Gran # 0.65 H Absolute Neutrophils 8.34 H ESR Sodium 124 L Chloride 90 L Anion Gap 7.0 L BUN 33 H Glucose 109 H Osmolality 278 L Phosphorus 2.1 L AST ALT 74 H C-Reactive Protein Total Protein 5.2 L Albumin Globulin 2.0 L Vitamin B12 07/01/22 07/01/22 07/01/22 05:30 05:30 05:30 WBC RBC Hgb Hct MCV RDW Immature Gran % (Auto) Immature Gran # Absolute Neutrophils ESR 33 H Sodium 127 L Chloride 90 L Anion Gap BUN 39 H Glucose 221 H Osmolality Phosphorus 1.9 L AST 41 H ALT 89 H C-Reactive Protein 1.80 H Total Protein 5.4 L Albumin Globulin Vitamin B12 07/01/22 06/30/22 05:30 17:55 WBC RBC 2.90 L Hgb 9.4 L Hct 29.2 L MCV 100.7 H RDW 16.8 H Immature Gran % (Auto) 5.8 H Immature Gran # 0.56 H Absolute Neutrophils ESR Sodium 128 L Chloride Anion Gap BUN Glucose Osmolality Phosphorus AST ALT C-Reactive Protein Total Protein Albumin Globulin Vitamin B12 Meds: Medications Acetaminophen (Acetaminophen 325 Mg Tablet) 650 mg PO Q6HP PRN; Protocol PRN Reason: Per Pain Protocol/Fever > 101 Last Admin: 07/01/22 17:29 Dose: 650 mg Hydrocodone Bitart/Acetaminophen (Hydrocodone/Apap 5/325mg Tablet) 0 tab PO Q4HP PRN; Protocol PRN Reason: Per Pain Protocol Albuterol/Ipratropium (Ipratropium/Albuterol 3 Ml Ampul.Neb) 3 ml NEB Q4HRT PRN PRN Reason: Wheezing Amiodarone HCl (Amiodarone Hcl 200 Mg Tablet) 200 mg PO [facility] Last Admin: 07/03/22 07:10 Dose: 200 mg Bisacodyl (Bisacodyl 10 Mg Supp.Rect) 10 mg ID DAILYP PRN PRN Reason: Constipation Calcium Carbonate/Glycine (Calcium (Oyster Shell) 500 Mg Tablet) 500 mg PO DAILY [facility] Last Admin: 07/03/22 08:04 Dose: 500 mg Cefepime HCl (Cefepime 1 Gm Vial) 1 gm IV Q12H [facility]; Protocol Last Admin: 07/03/22 08:09 Dose: 1 gm Cyanocobalamin (Cyanocobalamin (Vitamin B-12) 500 Mcg Tablet) 2,500 mcg PO DAILY [facility] Last Admin: 07/03/22 08:04 Dose: 2,500 mcg Dextrose (Dextrose 50% 50 Ml Vial) 0 ml IV UD PRN PRN Reason: Per Sliding Scale Diagnostic Test (Pha) (Accu-Chek 1 Each Strip) 1 each FS ACHS [facility] Last Admin: 07/03/22 11:48 Dose: 1 each Docusate Sodium (Docusate Sodium 100 Mg Capsule) 100 mg PO BID [facility] Last Admin: 07/03/22 08:03 Dose: 100 mg Furosemide (Furosemide 20 Mg Tablet) 40 mg PO DAILY [facility] Last Admin: 07/03/22 08:04 Dose: 40 mg Gabapentin (Gabapentin 100 Mg Capsule) 200 mg PO DAILY [facility] Last Admin: 07/03/22 08:04 Dose: 200 mg Gabapentin (Gabapentin 400 Mg Capsule) 400 mg PO HS [facility] Last Admin: 07/02/22 20:08 Dose: 400 mg Glucose (Dextrose 31 Gm Oral.Susp) 15 gm PO PRN PRN PRN Reason: Hypoglycemia Heparin Sodium (Porcine) (Heparin 5,000 Unit/Ml Vial) 5,000 unit SQ Q12 [facility] Last Admin: 07/03/22 08:03 Dose: 5,000 unit Insulin Glargine (Insulin Glargine, Human 1 Unit/0.01 Ml) [address] [facility] Insulin Human Lispro (Insulin Lispro 1 Unit/0.01 Ml Unit) 0 unit SQ ACHS [facility]; Protocol Last Admin: 07/03/22 11:48 Dose: Not Given Lactulose (Lactulose 20 Gm/30 Ml Oral.Patricia) 10 gm PO DAILYP PRN PRN Reason: Constipation Magnesium Hydroxide (Magnesium Hydroxide 30 Ml Oral.Susp) 30 ml PO Q2D PRN PRN Reason: Constipation Multivit/Ca Carb/B Cmplx/FA/Prenat (Folic Acid/Vitamin B Comp W-C 1 Tab Tablet) 1 tab PO DAILY [facility] Last Admin: 07/03/22 08:48 Dose: 1 tab Magic Mouthwash ( Viscous Lidocaine 2% /Maalox) 1:1 Solution 0 dose SSP QID [facility] Last Admin: 07/03/22 11:49 Dose: 1 dose Omeprazole (Omeprazole 20 Mg Capsule) 20 mg PO BIDAC [facility] Last Admin: 07/03/22 07:10 Dose: 20 mg Ondansetron HCl (Ondansetron 4 Mg/2 Ml Vial) 4 mg IV Q4HP PRN; Protocol PRN Reason: Nausea And Vomiting Oxybutynin Chloride (Oxybutynin Chloride 5 Mg Tab.Xl.24h) 10 mg PO QDAY [facility] Last Admin: 07/03/22 08:03 Dose: 10 mg Anastrozole 1 Mg (Tablet) 1 dose PO QDAY [facility] Last Admin: 07/03/22 07:53 Dose: Not Given Polyethylene Glycol (Polyethylene Glycol 3350 17 Gm Packet) 17 gm PO DAILYP PRN PRN Reason: Constipation Potassium Chloride (Potassium Chloride 10 Meq Tablet) 20 meq PO QDAY [facility] Last Admin: 07/03/22 08:04 Dose: 20 meq Potassium/Phosphorus/Sodium (Neutra Phos 1 Packet) 1 packet PO BID [facility] Stop: 07/06/22 08:59 Last Admin: 07/03/22 08:48 Dose: 1 packet Prednisone ([facility] 20 Mg Tablet) [facility] Admin: 07/03/22 07:10 Dose: 20 mg Senna (Sennosides 1 Tablet) 2 tab PO HSP PRN PRN Reason: Constipation Sertraline HCl (Sertraline 50 Mg Tablet) 25 mg PO DAILY [facility] Last Admin: 07/03/22 08:05 Dose: 25 mg Sodium Biphosphate/Sodium Phosphate (Fleets Adult Enema) 1 dose ID DAILYP PRN PRN Reason: Constipation Sodium Chloride (0.9 % Sodium Chloride 10 Ml Syringe) 10 ml IV Q8 [facility] Last Admin: 07/03/22 05:14 Dose: 10 ml Trimethoprim/Sulfamethoxazole (Sulfamethoxazole/Trimethoprim 1 Tablet) 1 tab PO SuTuTh@0900 [facility]; Protocol Last Admin: 07/03/22 08:03 Dose: 1 tab Vitamin D (Vitamin D3 25 Mcg Tablet) 25 mcg PO BID [facility] Last Admin: 07/03/22 08:04 Dose: 25 mcg A/P Narrative A/P Narrative: Assessment and Plans: # UTI secondary to Pseudomonas: Urine culture, pseudomonas aeruginosa sensitive to cefepime and ciprofloxacin Cefepime while inpatient or ciprofloxacin at discharge to complete 5 days of Pseudomonas antibiotic coverage. Physical therapy #Chronic hyponatremia secondary to SIADH: Fluid restriction. # Severe generalized weakness PT and OT, low intensity rehab at discharge if the patient agreeable. # Type 2 diabetes mellitus HgA1c 10.0 Hold oral hypoglycemics Lantus 10 units HS Medium dose SSI AC HS Accu Chek AC HS Diabetic diet # Atrial fibrillation: Hold Eliquis due to frequent falls Amiodarone 200 mg daily. Discontinued Lopressor 25 mg twice daily due to bradycardia. # h/o CHF, stable: Lasix 40 mg daily, holding metolazone for now. Resume Losartan at 25 mg daily with holding parameters. # h/o breast cancer: Anastrozole # Right elbow and posterior head wounds: Consult wound care team, recs. appreciated . Remove ivan from head wound. #Concern for dysphagia Speech therapy consult, dysphagia diet # Prolonged high-dose prednisone therapy probably for left optic neuritis Prednisone to 20 mg daily reduced from 40 mg daily. Bactrim DS 3 times a week for Pneumocystis pneumonia prophylaxis. Follow-up with speech therapy teacher who started prednisone, optimally the patient would have an appointment to see rheumatology however there is apparently no local rheumatology services available at this time. GI ppx: not currently indicated DVT ppx: Heparin Code status: DNR Prognosis: guarded Disposition: SNF for rehab when stable. Time Spent With Patient Time: Total time spent is greater than 50% in coordination of care (as documented) at patient's floor/unit and/or counseling patient: QUALITY VTE Deep Vein Thrombosis/Pulmonary Embolism Present on Admission: No
[2022-07-03] MEDS: HYDROcodone/APAP 5/325MG TABLET PO PRN ×2 (16:08→20:14)
[2022-07-03] MEDS: GABAPENTIN 400 MG CAPSULE PO SCH (20:15)
[2022-07-03] MEDS ORDERED: INSULIN GLARGINE, HUMAN 1 UNIT/0.01 ML SQ SCH (21:00)
[2022-07-04] MEDS: HYDROcodone/APAP 5/325MG TABLET PO PRN (04:42)
[2022-07-04] MEDS: 0.9 % SODIUM CHLORIDE 10 ML SYRINGE IV SCH (04:43)
[2022-07-04] MEDS: ACETAMINOPHEN 325 MG TABLET PO PRN (05:43)
[2022-07-04 06:10] LABS: Basophils # (Auto) 0.02 K/mcL (0.00-0.30); Basophils % (Auto) 0.2 % (0.0-2.0); Eosinophils # (Auto) 0.04 K/mcL (0.00-0.70); Eosinophils % (Auto) 0.4 % (0.0-7.0); Hematocrit 28.8 % (34.1-44.9); Hemoglobin 9.4 g/dL (11.2-15.7); Lymphocytes # (Auto) 3.28 K/mcL (1.50-4.80); Mean Cell Volume 99.3 fL (80.0-100.0); Mean Corpuscular HGB Conc 32.6 g/dL (31.0-36.0); Mean Platelet Volume 11.2 fL (8.8-12.5); Monocytes # (Auto) 0.71 K/mcL (0.10-0.90); Monocytes % (Auto) 6.5 % (1.0-12.0); Neutrophils % (Auto) 57.1 % (38.0-78.0); Platelet Count 189 K/mcL (140-440)
[2022-07-04 06:56] LABS: ALT/SGPT 116 U/L (<40); AST/SGOT 55 U/L (<32); Albumin 3.1 gm/dL (3.2-5.2); Albumin/Globulin Ratio 1.6 (1.0-2.3); Alkaline Phosphatase 77 U/L (39-117); Bilirubin,Total 0.4 mg/dL (0.1-1.0); Blood Urea Nitrogen 31 mg/dL (8-23); Calcium 8.6 mg/dL (8.6-10.4); Carbon Dioxide 28 mmol/L (22-30); Chloride 91 mmol/L (96-108); Globulin 1.9 gm/dL (2.2-3.7); Glomerular Filtration Rate 51; Glucose 58 mg/dL (70-105); Phosphorous 2.6 mg/dL (2.5-4.5)
[2022-07-04] MEDS: INSULIN LISPRO 1 UNIT/0.01 ML UNIT SQ SCH ×2 (07:07→12:23)
[2022-07-04] MEDS ORDERED: predniSONE 20 MG TABLET PO SCH (08:00)
[2022-07-04] MEDS: OMEPRAZOLE 20 MG CAPSULE PO SCH (08:01)
[2022-07-04] MEDS ORDERED: LOSARTAN 50 MG TABLET PO SCH (09:00)
[2022-07-04] MEDS: NEUTRA PHOS 1 PACKET PO SCH (09:14)
[2022-07-04] MEDS: CEFEPIME 1 GM VIAL IV SCH (09:14)
[2022-07-04] MEDS: FUROSEMIDE 20 MG TABLET PO SCH (09:16)
[2022-07-04] MEDS: HEPARIN 5,000 UNIT/ML VIAL SQ SCH (09:16)
[2022-07-04] MEDS: GABAPENTIN 100 MG CAPSULE PO SCH (09:16)
[2022-07-04] MEDS: AMIODARONE HCL 200 MG TABLET PO SCH (09:18)
[2022-07-04] MEDS: SERTRALINE 50 MG TABLET PO SCH (09:18)
[2022-07-04] MEDS: [UNRECOGNIZED DRUG - OTHER] SSP SCH ×2 (09:26→12:23)
[2022-07-04] MEDS: DOCUSATE SODIUM 100 MG CAPSULE PO SCH (09:26)
[2022-07-04] MEDS: CALCIUM (OYSTER SHELL) 500 MG TABLET PO SCH (09:26)
[2022-07-04] MEDS: POTASSIUM CHLORIDE 10 MEQ TABLET PO SCH (09:26)
[2022-07-04] MEDS: FOLIC ACID/VITAMIN B COMP W-C 1 TAB TABLET PO SCH (09:26)
[2022-07-04] MEDS: MAGIC MOUTHWASH SSP SCH ×2 (09:26→12:23)
[2022-07-04] MEDS: VITAMIN D3 25 MCG TABLET PO SCH (09:27)
[2022-07-04] MEDS: OXYBUTYNIN CHLORIDE 5 MG TAB.XL.24H PO SCH (09:59)
[2022-07-04] MEDS: CYANOCOBALAMIN (VITAMIN B-12) 500 MCG TABLET PO SCH (09:59)
--- NOTE | 2022-07-04 12:31 | Discharge Summary ---
Discharge Provider Provider IMPORTANT FOLLOW-UP INFORMATION FOR PCP: Patient information: Note initiated : 07/04/22 at 12:27 pm Service Date, if different from initiated Date: [] Patient: Isi Forman 87 y/o F admitted on 06/27/22 for decreased level of consciousness. Chief Complaint: [] Date of admission: 06/27/22 15:00 Discharge date: 07/04/22 Primary care physician: Dana Boykin DO Consults: 06/27/22 Consult to Physician [CONS] Stat Comment: Consulting Provider: Sly Cardoso Reason For Exam: Physician to Consult Consult to Physician [CONS] Stat Comment: T-4 admit. Low K, low sodium, high glucose, ALOC Consulting Provider: Sly Cardoso Reason For Exam: Physician to Consult 07/04/22 11:14 Consult to Physician [CONS] Routine Comment: snf referral Consulting Provider: [facility] Lynnette Reason For Exam: Physician to Consult COURSE Hospital Course Hospital course: Ms. Forman is a 87 year old F history of right breast cancer status post surgery now on hormonal therapy, type 2 diabetes mellitus, atrial fibrillation on Eliquis, CHF, presenting with altered mental status and frequent falls. She was hospitalized in our facility about 2 weeks ago for CHF exacerbation and she was discharged to alf [facility]. It was reported that the patient have frequent falls with the last episode earlier today with seemingly altered mental status in the POST so the alf staff to send the patient is here to our ED for further evaluation and treatments. She had a documented comfort care only POLST form but at the bedside stated that she is now full code and he wants her to be treated with everything possible. Patient is alert and oriented x2 to person and place only and she is not sure what has happened. Labs significant for lack of leukocytosis with WBC 10.8. Blood glucose 488, corrected sodium level 132, potassium level 2.8. Bicarb of 30 and anion gap of 14. UA suggest the presence of urinary tract infections. Head CT showing right better abnormalities consistent with small vessel ischemic changes. It also shows cerebellar atrophy and no intracranial hemorrhage. No acute abnormalities seen relative to last study 6 days ago. Chest x-ray unremarkable. 06/28: Afebrile overnight. On 4L/min oxygen. Blood and urine cultures no growth to date. Fasting glucose 151. Serum potassium 3.3. Patient denies any headaches. She denies any shortness of breath. She denies any chest pain palpitations. She denies any fever chills or diaphoresis. Improving degree of general weakness. Continue potassium replacement. Continue Rocephin for UTI while waiting for culture results. Giving Lantus 10 HS, sliding scale insulin from high scale to low scale AC HS. DC metolazone due to soft blood pressure. Continue physical therapy evaluation and treatments. 06/29: Afebrile overnight. On 3L/min oxygen. Blood culture no growth to date; Urine culture gram negative bacillus. Fasting glucose 160. Serum sodium 122, potassium 3.1. WBC 7.6. Patient is c/o weakness. She is c/o confusion. She is c/o generalized body pain. Continue potassium replacement. NS@100cc/hr, serum sodium q6hr, goal of correction 8-10 in the next 24 hours. Continue Rocephin for UTI while waiting for culture results. Continue basal bolus insulin. Continue physical therapy evaluation and treatments. 06/30: Afebrile overnight. On 2L/min oxygen. Blood culture no growth to date; urine culture pseudomonas aeruginosa. Fasting glucose 200. Serum sodium 126. She is c/o dysuria. Denies shortness of breath. Denies fever, chills, or sweating. NS@100cc/hr, serum sodium q6hr, goal of correction 8-10 in the next 24 hours. Switch antibiotics from Rocephin to Cefepime. 07/01 Afebrile overnight, RAMIRO has resolved. Changed amiodarone from 200 mg p.o. twice daily to 200 mg daily. Restarted Lasix at 40 mg daily, discontinued metolazone. Sodium level 127, ordered serum osmolality, urine osmolality, urine sodium. Started fluid restriction. Valiente catheter placed overnight for urinary retention, will remove today and follow with bladder scans. Discussed patient's prednisone dose which is reportedly for optic neuritis, will obtain a ESR and CRP level to send to the patient's aromatherapist. Per family's report, the patient has been on high-dose prednisone since March 2022. It does not sound like the patient is on pneumocystis prophylaxis instead of being on high-dose steroids for several months so we will start Bactrim 3 times a week. Optimally, the patient can be tapered off prednisone in the coming weeks. Remove ivan from head wound, ivan were placed about 10 days ago. 07/02 Heart rate in the 50s, discontinued Lopressor. Sodium decreased to 124, reordered urine osmolality and urine sodium as prior results not reported. Also reordered serum osmolality given the unexpected normal findings from the last test. ESR and CRP mildly elevated so decrease prednisone dose to 20 mg daily. White blood cell count increased today, follow WBC tomorrow. Check TSH in the morning. Patient is very weak, concern for risk of aspiration therefore speech therapy consulted. 07/03 No significant events overnight, dysphagia level 5 diet. The patient is requiring significant amounts of assistance with eating and all activities. Educe Lantus to 10 units at bedtime due to hypoglycemia this morning. Sodium improved to 128. 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 Discontinued morphine IV and started hydrocodone p.o. as needed. Decrease prednisone to 20 mg daily. Continues on cefepime, near completion of UTI treatment for Pseudomonas. The patient is gradually progressing to hospital discharge however with the patient's prognosis is guarded as she has poor nutritional intake, is very weak and not participating with therapies. Goals of care discussed with the patient and her at the bedside in light of the poor prognosis. They do not want the patient to return to the prior assisted facility stating that were not able to provide care for the patient. Hospice has been considered by the patient and family, they will discuss this further with family members and among some cells. Transition to MedSurg status. 07/04 The patient has decided she wants to transition to comfort cares, family members including her are in agreement. The plan is to discharge the patient to a assisted facility for comfort cares under the care of the assisted facility provider. All none comfort medications discontinued for comfort care as discussed with patient and family. The patient is discharged with sufficient prescriptions for Tylenol, Ativan as needed, morphine as needed for comfort cares until the assisted facility provider is able to assume end-of-life care management. Physical exam Head: Atraumatic, normal inspection. Eyes: normal appearance, no scleral icterus. Neck: full ROM Respiratory: no respiratory distress. Cardiovascular: normal rate and rhythm, S1, S2. GI/Abdominal: soft, nontender, no guarding. Extremities: full range of motion, nontender. Neurological: CN II-XII intact, intact motor, intact sensation. Psychiatric: normal mood. Skin: Multiple wounds to right upper extremity covered with bandages. Discharge diagnosis: UTI secondary to Pseudomonas Secondary discharge diagnosis: Physical deconditioning Protein calorie malnutrition Time Spent with Patient Time attestation: Total time spent providing and/or coordinating discharge services: Time spent: Greater than 30 minutes EXAM Constitutional Vitals: Temp Pulse Resp BP Pulse Ox O2 Del Method O2 Flow Rate 96.8 F L 61 12 113/45 98 2.5 07/04/22 07:54 07/04/22 07:54 07/04/22 07:54 07/04/22 07:54 07/04/22 07:54 07/04/22 08:15 07/03/22 12:01 Discharge Data Data Completed and Pending Labs on day of discharge: Labs from last 24 hours 07/04/22 07/04/22 05:21 05:20 WBC 11.0 RBC 2.90 L Hgb 9.4 L Hct 28.8 L MCV 99.3 MCH 32.4 MCHC 32.6 RDW 18.0 H Plt Count 189 MPV 11.2 Immature Gran % (Auto) 5.8 H Neut % (Auto) 57.1 Lymph % (Auto) 30.0 Stephenson % (Auto) 6.5 Eos % (Auto) 0.4 Baso % (Auto) 0.2 Lymph # (Auto) 3.28 Stephenson # (Auto) 0.71 Eos # (Auto) 0.04 Baso # (Auto) 0.02 Immature Gran # 0.63 H Absolute Neutrophils 6.27 Sodium 128 L Potassium 4.0 Chloride 91 L Carbon Dioxide 28 Anion Gap 9.0 BUN 31 H Creatinine 1.0 GFR Calculation 51 Glucose 58 L Calcium 8.6 Phosphorus 2.6 Magnesium 2.1 Total Bilirubin 0.4 AST 55 H ALT 116 H Alkaline Phosphatase 77 Total Protein 5.0 L Albumin 3.1 L Globulin 1.9 L Albumin/Globulin Ratio 1.6 Discharge Plan Patient/Caregiver Discharge Instructions Activity: increase activity as tolerated Diet: Consistent Carbohydrate Prescriptions: New morphine 20 mg/5 mL (4 mg/mL) solution 5 mg sublingual Q4H PRN (Reason: dyspnea) Qty: 100 0RF lorazepam [Ativan] 1 mg tablet 0.5 mg PO Q3HP PRN (Reason: anxiety) Qty: 10 0RF acetaminophen [Tylenol Extra Strength] 500 mg tablet 500 mg PO Q4H PRN (Reason: fever or pain) Qty: 30 0RF Continued pioglitazone 45 mg tablet 45 mg PO QDAY Qty: 90 1RF omeprazole 20 mg tablet,delayed release (DR/EC) 20 mg PO BID Qty: 180 1RF oxybutynin chloride 10 mg tablet extended release 24hr 10 mg PO QDAY Qty: 90 1RF potassium chloride 10 mEq tablet extended release 20 meq PO QDAY Qty: 180 1RF anastrozole 1 mg tablet 1 mg PO QDAY Eliquis 5 mg tablet 5 mg PO BID Qty: 180 1RF amiodarone 200 mg tablet 200 mg PO BID Qty: 180 1RF losartan 50 mg tablet 50 mg PO QDAY Qty: 90 1RF metoprolol tartrate 25 mg tablet 25 mg PO BID Qty: 180 1RF cholecalciferol (vitamin D3) 25 mcg (1,000 unit) capsule 25 mcg PO BID calcium carbonate 600 mg calcium (1.5 gram) Tablet,Chewable 1 tab PO DAILY sertraline 25 mg Tablet 25 mg PO DAILY prednisone 20 mg Tablet 20 mg PO BID acetaminophen 500 mg Capsule 500 mg PO Q6H PRN (Reason: Pain) furosemide 20 mg Tablet 40 mg PO BID 30 Days Qty: 120 0RF gabapentin 100 mg capsule 400 cap PO HS B Complex-Vitamin B12 2,500 MCG tablet 2,500 mcg PO DAILY metolazone 2.5 mg Tablet 2.5 mg PO DAILY glucagon 1 mg/0.2 mL Syringe 1 mg SUBCUT Q15M PRN (Reason: Hypoglycemia) Rx Instructions: until target blood sugar attained lidocaine HCl 2 % Solution 1 applic PO QID PRN (Reason: MOUTH SORES) gabapentin 100 mg capsule 200 mg PO DAILY polyethylene glycol 3350 [Miralax] 17 gram Powder In Packet 17 g PO QDAY PRN (Reason: Constipation) bisacodyl [Dulcolax (bisacodyl)] 10 mg Suppository 10 mg OH DAILYP PRN (Reason: Constipation) Rx Instructions: Give if no result from MOM. If no BM after 24 hours, give fleet enema. Fleet Enema 19-7 gram/118 mL Enema 118 ml OH DAILYP PRN (Reason: Constipation) Rx Instructions: give 1 unit if no results from MOM and dulcolax suppository magnesium hydroxide 2,400 mg/10 mL Suspension 10 ml PO Q2D PRN (Reason: Constipation) Rx Instructions: give if no BM for 2 days. If no result in 24 hours give dulcolax suppository Follow Up Plan Follow up with: Dana Boykin DO [Primary Care Provider] - Patient Disposition: Xfer SNF Prognosis: Serious Rehab Potential: Undetermined I certify that the patient requires SNF services: Yes Overall status at discharge: patient is not back to baseline Discharge Orders: Discharge Order (Routine); Ordered 07/04/22 Ordered By: Jesse Ramires QUALITY VTE Deep Vein Thrombosis/Pulmonary Embolism Present on Admission: No
[2022-07-04] MEDS ORDERED: INSULIN GLARGINE, HUMAN 1 UNIT/0.01 ML SQ SCH (21:00)
== END 2022-07-04 13:30 | DRG 690 ==
LOC: ED 08:40 → ICU 15:00 → MEDSUR 07-03 21:42
PROVIDERS: ADMIT Internal Medicine; ATTEND Internal Medicine